=== PATIENT | male | born 1955 | race Caucasian/White ===

== ENCOUNTER → 2019-03-20 19:06 | Outpatient (CLI) | payer MEDICARE, OTHER, SELFPAY ==
[2019-03-20 10:04] VITALS: BMI 29.7
[2019-03-20 19:20] LABS: Absolute Lymphocyte Count 1.81 X10^3/uL (0.83-4.51); Absolute Neutrophil Count 3.3 X10^3/uL (2.0-7.7); Basophil# 0.07 X10^3/uL; Basophil% 1.2 % (0-1); Eosinophil# 0.12 X10^3/uL; Hematocrit 47.3 % (40-54); Lymphocyte # 1.81 X10^3/ul (4.0); Lymphocyte % 29.9 % (19-41); Mean Corp Hgb Conc 33.8 g/dL (32-36); Mean Corpuscular Hgb 30.4 pg (27.0-32.0); Mean Corpuscular Volume 89.9 fL (80-94); Mean Platelet Vol. 9.9 fl (6.2-12.0); Monocyte# 0.79 X10^3/uL; NRBC Flagged by Analyzer 0 % (0-5); Neutrophil # 3.26 X10^3/uL (2.7-7.7); Neutrophil % 53.7 % (47-70); Platelet Count 309 K/mm3 (150-450); RBC Distribution Width CV 12.4 % (11.6-14.6); RBC Distribution Width SD 40.9 fl (35.1-43.9); Red Blood Count 5.26 M/mm3 (4.6-6.2); White Blood Count 6.1 K/mm3 (4.4-11.0)
[2019-03-20 19:30] LABS: ALB/GLOB Ratio 1.1 RATIO (0.9-2.4); AST(SGOT) 14 U/L (15-37); Alanine Aminotransfer ALT/SGPT 18 U/L (16-61); Alkaline Phosphatase 73 U/L (45-117); Anion Gap 3 (5-15); BUN 13 mg/dL (7-18); BUN/Creat Ratio 12.7 RATIO (10-20); Calcium,Total 9.2 mg/dL (8.5-10.1); Chloride 107 mmol/L (98-107); Cholesterol 291 mg/dL (200); Creatinine, Serum 1.02 mg/dL (0.70-1.30); EST Glomerular Filtration Rate 78 mL/min (>60); Est Glom Filt Rate - Afr Amer 94 mL/min (>60); Globulin 3.6 g/dL (2.2-4.2); Glucose 127 mg/dL (74-106); High Density Lipoprotein 90 mg/dL; PSA,Total- Diagnostic 5.16 ng/mL (0.0-4.0); Potassium 4.2 mmol/L (3.5-5.1); Protein, Total 7.6 g/dL (6.4-8.2); Sodium Level 138 mmol/L (136-145); Triglycerides 113 mg/dL; Very Low Density Lipoprotein 23 mg/dL (5-40)
== END ==
LOC: OLS.AHF 19:07 → LABSPEC 03-22 08:41
PROVIDERS: Referring Provider Nurse Practitioner; Visit Provider Nurse Practitioner
DX: E78.5 Hyperlipidemia, unspecified (principal); N40.0 Benign prostatic hyperplasia without lower urinary tract symptoms; I10 Essential (primary) hypertension
CPT/HCPCS: 80053; 80061; 84153; 85025

== ENCOUNTER → 2019-09-15 | Outpatient (CLI) | payer MEDICARE, OTHER, SELFPAY ==
[2019-09-15 18:21] VITALS: BMI 29.0
== END | disposition home or self-care (01) ==
LOC: LABSPEC 09-16 09:36
PROVIDERS: Referring Provider Nurse Practitioner; Visit Provider Nurse Practitioner
DX: I10 Essential (primary) hypertension (principal); E78.5 Hyperlipidemia, unspecified; N40.0 Benign prostatic hyperplasia without lower urinary tract symptoms

== ENCOUNTER → 2019-10-28 | Outpatient (CLI) | payer MEDICARE, OTHER, SELFPAY ==
[2019-09-15 18:21] VITALS: BMI 29.0
[2019-10-28 22:14] LABS: ALB/GLOB Ratio 1.3 RATIO (0.9-2.4); AST(SGOT) 15 U/L (15-37); Alanine Aminotransfer ALT/SGPT 14 U/L (16-61); Alkaline Phosphatase 66 U/L (45-117); Anion Gap 6 (5-15); BUN 14 mg/dL (7-18); BUN/Creat Ratio 13.1 RATIO (10-20); Calcium,Total 9.1 mg/dL (8.5-10.1); Chloride 111 mmol/L (98-107); Creatinine, Serum 1.07 mg/dL (0.70-1.30); EST Glomerular Filtration Rate 73 mL/min (>60); Est Glom Filt Rate - Afr Amer 89 mL/min (>60); Glucose 89 mg/dL (74-106); Potassium 4.2 mmol/L (3.5-5.1); Sodium Level 143 mmol/L (136-145)
[2019-10-28 22:19] LABS: Absolute Lymphocyte Count 1.88 X10^3/uL (0.83-4.51); Absolute Neutrophil Count 4.5 X10^3/uL (2.0-7.7); Basophil# 0.06 X10^3/uL; Basophil% 0.8 % (0-1); Eosinophil# 0.11 X10^3/uL; Eosinophils% 1.5 % (0-5); Hematocrit 43.2 % (40-54); Lymphocyte # 1.88 X10^3/ul (4.0); Lymphocyte % 25.4 % (19-41); Mean Corp Hgb Conc 34.7 g/dL (32-36); Mean Corpuscular Hgb 31.5 pg (27.0-32.0); Mean Corpuscular Volume 90.8 fL (80-94); Mean Platelet Vol. 10.2 fl (6.2-12.0); Monocyte# 0.86 X10^3/uL; Monocyte% 11.6 % (0-10); NRBC Flagged by Analyzer 0 % (0-5); Neutrophil # 4.49 X10^3/uL (2.7-7.7); Neutrophil % 60.6 % (47-70); Platelet Count 304 K/mm3 (150-450); RBC Distribution Width CV 12.6 % (11.6-14.6); RBC Distribution Width SD 41.7 fl (35.1-43.9); Red Blood Count 4.76 M/mm3 (4.6-6.2); White Blood Count 7.4 K/mm3 (4.4-11.0)
== END | disposition home or self-care (01) ==
PROVIDERS: PCP Nurse Practitioner; Referring Provider Nurse Practitioner; Visit Provider Nurse Practitioner
DX: R97.20 Elevated prostate specific antigen [PSA] (principal)
CPT/HCPCS: 80053; 85025

== ENCOUNTER → 2019-10-29 | Outpatient (CLI) | payer MEDICARE, OTHER, SELFPAY ==
[2019-09-15 18:21] VITALS: BMI 29.0
[2019-10-29 11:11] VITALS: BMI 29.0
== END | disposition home or self-care (01) ==
LOC: MTDU 11:13
PROVIDERS: PCP Nurse Practitioner; Referring Provider Urology; Visit Provider Urology
DX: Z11.59 Encounter for screening for other viral diseases (principal)
CPT/HCPCS: 87635; 94799; U0003

== ENCOUNTER → 2019-11-05 | Outpatient (CLI) | payer MEDICARE, OTHER, SELFPAY ==
[2019-10-29 11:11] VITALS: BMI 29.0
--- NOTE | 2019-11-05 | PROSBIL_PTH ---
PATIENT: DOMINIK DIA LOC: [facility] U#:[id number] AGE/SX: 64/M ROOM: RE11/05/[address]: Dr. Fred Adair MD : 1955 BED: DIS: 11/05/2019 SPEC #: [id number] RECD: 11/09/19 08:23 STATUS: GEOVANNA RECanelo #: [id number] JOHNNY: 11/05/19 00:[address]: Fred Adair DEPT: SURGICAL PATHOLOGY RECD BY: Arvin Franco ENTERED: 11/09/19 08:24 SP TYPE: PROST BX BIGG DR: Livia Whitten, [facility] Tissues: A - PROSTATE RIGHT B - PROSTATE RIGHT C - PROSTATE RIGHT D - PROSTATE LEFT E - PROSTATE LEFT F - PROSTATE LEFT Procedures: PROSTATE BX HEADER OPERATION: Transrectal ultrasound-guided prostate biopsy PRE-OP DIAGNOSIS: Benign prostatic hyperplasia with lower urinary tract symptoms; elevated PSA; carcinoma in situ of prostate TISSUE SUBMITTED: A - Right base, B - Right mid, C - Right apex, D - Left base, E - Left mid, F - Left apex MICROSCOPIC DIAGNOSIS A. Right prostate, base, core biopsy: Glandular atrophy and chronic inflammation. B. Right prostate, mid, core biopsy: Glandular atrophy and chronic inflammation. C. Right prostate, apex, core biopsy: Glandular atrophy and chronic inflammation. D. Left prostate, base, core biopsy: Glandular atrophy and chronic inflammation. E. Left prostate, mid, core biopsy: Glandular atrophy and chronic inflammation. F. Left prostate, apex, core biopsy: Glandular atrophy and chronic inflammation. AM:arturo 11/10/19 MICROSCOPIC DESCRIPTION Slides are reviewed. GROSS DESCRIPTION A - Received is one container designated prostate, right base. The specimen consists of two elongated fragments of light brown-white soft tissue measuring 1.5 and 2.5 cm in length and 0.1 cm in diameter. The specimen is totally submitted in one cassette. B - Received is one container designated prostate, right mid. The specimen consists of two elongated fragments of light brown-white soft tissue measuring 1 and 1.5 cm in length and 0.1 cm in diameter. The specimen is totally submitted in one cassette. C - Received is one container designated prostate, right apex. The specimen consists of two elongated fragments of light brown-white soft tissue each measuring 1.5 cm in length and 0.1 cm in diameter. The specimen is totally submitted in one cassette. D - Received is one container designated prostate, left base. The specimen consists of two elongated fragments of light brown-white soft tissue each measuring 1.5 cm in length and 0.1 cm in diameter. The specimen is totally submitted in one cassette. E - Received is one container designated prostate, left mid. The specimen consists of two elongated fragments of light brown-white soft tissue each measuring 1.6 cm in length and 0.1 cm in diameter. The specimen is totally submitted in one cassette. F - Received is one container designated prostate, left apex. The specimen consists of two elongated fragments of light brown-white soft tissue measuring 1.2 and 1.7 cm in length and 0.1 cm in diameter. The specimen is totally submitted in one cassette. / SJ:rg 11/09/19 TC:3 CPT: G0146
== END | disposition home or self-care (01) ==
LOC: LABSPEC 15:38
PROVIDERS: PCP Nurse Practitioner; Referring Provider Urology; Visit Provider Urology
DX: D07.5 Carcinoma in situ of prostate (principal); N40.1 Benign prostatic hyperplasia with lower urinary tract symptoms; R97.20 Elevated prostate specific antigen [PSA]
CPT/HCPCS: 88305; G0416

== ENCOUNTER → 2021-07-24 | Outpatient (CLI) | payer MEDICARE, OTHER, SELFPAY ==
[2021-07-24 21:14] LABS: Absolute Neutrophil Count 5.2 X10^3/uL (2.0-7.7); Basophil# 0.07 X10^3/uL; Basophil% 0.8 % (0-1); Eosinophil# 0.24 X10^3/uL; Eosinophils% 2.9 % (0-5); Hematocrit 42.8 % (40-54); Hemoglobin 14.6 g/dL (13.0-16.5); Lymphocyte % 22.8 % (19-41); Mean Corp Hgb Conc 34.1 g/dL (32-36); Mean Corpuscular Hgb 31.3 pg (27.0-32.0); Mean Corpuscular Volume 91.8 fL (80-94); Mean Platelet Vol. 10.1 fl (6.2-12.0); Monocyte# 0.95 X10^3/uL; Monocyte% 11.4 % (0-10); NRBC Flagged by Analyzer 0 % (0-5); Neutrophil # 5.15 X10^3/uL (2.7-7.7); Neutrophil % 61.7 % (47-70); Platelet Count 340 K/mm3 (150-450); RBC Distribution Width CV 12.5 % (11.6-14.6); Red Blood Count 4.66 M/mm3 (4.6-6.2); White Blood Count 8.3 K/mm3 (4.4-11.0)
[2021-07-24 21:31] LABS: AST(SGOT) 21 U/L (15-37); Alanine Aminotransfer ALT/SGPT 15 U/L (16-61); Albumin, Serum 3.7 g/dL (3.2-5.0); Alkaline Phosphatase 79 U/L (45-117); Anion Gap 6 (5-15); BUN 12 mg/dL (7-18); BUN/Creat Ratio 12.8 RATIO (10-20); Calcium,Total 9.2 mg/dL (8.5-10.1); Chloride 107 mmol/L (98-107); Cholesterol 223 mg/dL (200); Creatinine, Serum 0.94 mg/dL (0.70-1.30); EST Glomerular Filtration Rate 85 mL/min (>60); Est Glom Filt Rate - Afr Amer 103 mL/min (>60); Globulin 3.7 g/dL (2.2-4.2); Glucose 102 mg/dL (74-106); High Density Lipoprotein 85 mg/dL; Potassium 3.9 mmol/L (3.5-5.1); Protein, Total 7.4 g/dL (6.4-8.2); Sodium Level 140 mmol/L (136-145); Triglycerides 84 mg/dL; Very Low Density Lipoprotein 17 mg/dL (5-40)
== END | disposition home or self-care (01) ==
PROVIDERS: PCP Nurse Practitioner; Visit Provider Nurse Practitioner
DX: I10 Essential (primary) hypertension (principal); N40.0 Benign prostatic hyperplasia without lower urinary tract symptoms; R97.20 Elevated prostate specific antigen [PSA]
CPT/HCPCS: 80053; 80061; 84153; 85025

== ENCOUNTER → 2021-08-29 | Outpatient (CLI) | payer MEDICARE, OTHER, SELFPAY | END | disposition home or self-care (01) | PROVIDERS: PCP Nurse Practitioner; Visit Provider Nurse Practitioner | DX: N40.1 Benign prostatic hyperplasia with lower urinary tract symptoms (principal) | CPT/HCPCS: 84153 ==

== ENCOUNTER → 2021-09-14 | Outpatient (CLI) | payer MEDICARE, OTHER, SELFPAY ==
--- NOTE | 2021-09-14 11:00 | RAD_ITS ---
STUDY: X-RAY - ORBITS REASON FOR EXAM: Male, 66 years old. HX METAL TO EYE PRE MRI -- JUST ARRIVED TECHNIQUE: BANKS view of the orbits were obtained. COMPARISON: None. FINDINGS: Normal bilateral orbits without a metallic orbital foreign body. Normal visualized facial bones. Normal paranasal sinuses. The soft tissue structures are unremarkable. RAD/Orbits for Foreign Body IMPRESSION: No demonstrated metallic orbital foreign body. The patient is cleared for an MRI examination. Electronically Signed: Franki Davey MD at 11:27 EDT ,
--- NOTE | 2021-09-14 11:15 | MRI_ITS ---
MR Prostate WO/W Contrast 09/14/2021 11:33 AM COMPARISON: None CLINICAL HISTORY: 66-year-old man with elevated PSA. TECHNIQUE: Standard prostate MR protocol was used before and after administration of 15 cc IV Dotarem. FINDINGS: Prostate volume: 34 cc PSA density: PSA level not provided. Length of membranous urethra: 13 mm Post-biopsy hemorrhage: None Multiparametric MR evaluation: Heterogeneous appearance of the central gland is consistent with benign prostatic hyperplasia. Diffuse T2 hypointensity of most of the peripheral zone likely indicating prostatitis. Capsular margin and neurovascular bundle: Normal Seminal vesicles: Normal Lymph nodes: No lymphadenopathy in the field of view. Bones: No suspicious lesions in the field of view. MRI/Pelvis W/WO Contrast IMPRESSION: - PI-RADS 2: Benign prostatic hyperplasia - Findings suspicious for prostatitis - No lymphadenopathy. - No suspicious bone lesions. Electronically Signed: Neel Reid MD at 23:03 EDT ,
[2021-09-14 11:36] LABS: CREATININE FINGERSTICK < 0.9 mg/dL (0.70-1.30); EGFR FINGERSTICK > 60.0000 mL/min (>60)
== END | disposition home or self-care (01) ==
PROVIDERS: PCP Nurse Practitioner; Referring Provider Urology; Visit Provider Urology
DX: R97.20 Elevated prostate specific antigen [PSA] (principal)
CPT/HCPCS: 70030; 72197; A9575

== ENCOUNTER → 2021-11-27 | Outpatient (CLI) | payer MEDICARE, OTHER, SELFPAY | END | disposition home or self-care (01) | PROVIDERS: PCP Nurse Practitioner; Visit Provider Nurse Practitioner | DX: N40.1 Benign prostatic hyperplasia with lower urinary tract symptoms (principal) | CPT/HCPCS: 84153 ==

== ENCOUNTER 2022-09-04 21:04 | Outpatient (CLI) | payer MEDICARE, OTHER, SELFPAY ==
[2022-09-04 21:12] LABS: Hematocrit 43.9 % (40-54); Hemoglobin 15.3 g/dL (13.0-16.5); Mean Corp Hgb Conc 34.9 g/dL (32-36); Mean Corpuscular Hgb 31.4 pg (27.0-32.0); Platelet Count 332 K/mm3 (150-450); RBC Distribution Width CV 13.2 % (11.6-14.6); RBC Distribution Width SD 43.4 fl (35.1-43.9); Red Blood Count 4.88 M/mm3 (4.6-6.2); White Blood Count 7.1 K/mm3 (4.4-11.0)
[2022-09-04 21:32] LABS: ALB/GLOB Ratio 0.9 RATIO (0.9-2.4); AST(SGOT) 17 U/L (15-37); Alanine Aminotransfer ALT/SGPT 14 U/L (16-61); Albumin, Serum 3.6 g/dL (3.2-5.0); Alkaline Phosphatase 86 U/L (45-117); Anion Gap 9 (5-15); BUN 14 mg/dL (7-18); BUN/Creat Ratio 12.2 RATIO (10-20); Calcium,Total 9.1 mg/dL (8.5-10.1); Chloride 107 mmol/L (98-107); Cholesterol 237 mg/dL (200); Creatinine, Serum 1.15 mg/dL (0.70-1.30); EST Glomerular Filtration Rate 67 mL/min (>60); Est Glom Filt Rate - Afr Amer 81 mL/min (>60); Globulin 3.8 g/dL (2.2-4.2); Glucose 96 mg/dL (74-106); High Density Lipoprotein 88 mg/dL; Potassium 4.1 mmol/L (3.5-5.1); Protein, Total 7.4 g/dL (6.4-8.2); Sodium Level 141 mmol/L (136-145); Triglycerides 172 mg/dL; Very Low Density Lipoprotein 34 mg/dL (5-40)
== END 2022-09-04 23:59 | disposition home or self-care (01) ==
PROVIDERS: PCP Nurse Practitioner; Visit Provider Nurse Practitioner
DX: Z12.5 Encounter for screening for malignant neoplasm of prostate (principal); I10 Essential (primary) hypertension; R97.20 Elevated prostate specific antigen [PSA]; E78.5 Hyperlipidemia, unspecified; N40.1 Benign prostatic hyperplasia with lower urinary tract symptoms; L02.429 Furuncle of limb, unspecified
CPT/HCPCS: 80053; 80061; 84153; 85027; G0103

== ENCOUNTER → 2022-09-27 | Outpatient (CLI) | payer MEDICARE, OTHER, SELFPAY ==
--- NOTE | 2022-09-27 10:20 | PROSBIL_PTH ---
PATIENT: DOMINIK DIA [facility]: [facility] U#:[id number] AGE/SX: 67/M ROOM: RE09/27/[address]: Dr. Fred Adair MD : 1955 BED: DIS: 09/27/2022 SPEC #: [id number] RECD: 09/30/22 09:30 STATUS: GEOVANNA JO #: [id number] JOHNNY: 09/27/22 10:[address]: Fred Adair DEPT: SURGICAL PATHOLOGY RECD BY: Nancy Ross ENTERED: 09/30/22 09:31 SP TYPE: PROST BX BIGG DR: Livia Whitten, [facility] Tissues: A - PROSTATE RIGHT B - PROSTATE RIGHT C - PROSTATE RIGHT D - PROSTATE LEFT E - PROSTATE LEFT F - PROSTATE LEFT Procedures: PROSTATE BX HEADER OPERATION: Prostate biopsy PRE-OP DIAGNOSIS: Elevated PSA TISSUE SUBMITTED: A - Right base, B - Right mid, C - Right apex, D - Left base, E - Left mid, F - Left apex MICROSCOPIC DIAGNOSIS A. Right prostate, base, core biopsy: Prostatic tissue, negative for malignancy. Focal chronic inflammation. B. Right prostate, mid, core biopsy: Prostatic tissue, negative for malignancy. Focal chronic inflammation. C. Right prostate, apex, core biopsy: Prostatic tissue, negative for malignancy. Focal chronic inflammation. D. Left prostate, base, core biopsy: Prostatic tissue, negative for malignancy. Focal chronic inflammation. E. Left prostate, mid, core biopsy: Prostatic tissue, negative for malignancy. Focal chronic inflammation. F. Left prostate, apex, core biopsy: Prostatic tissue, negative for malignancy. Focal chronic inflammation. SJ:arturo 10/01/2022 MICROSCOPIC DESCRIPTION Slides are reviewed. GROSS DESCRIPTION A - Received is one container designated prostate, right base. The specimen consists of two elongated fragments of light brown-white soft tissue measuring 1.0 and 1.5 cm in length and 0.1 cm in diameter. The specimen is totally submitted in one cassette. B - Received is one container designated prostate, right mid. The specimen consists of two elongated fragments of light brown-white soft tissue measuring 1.5 and 1.9 cm in length and 0.1 cm in diameter. The specimen is totally submitted in one cassette. C - Received is one container designated prostate, right apex. The specimen consists of two elongated fragments of light brown-white soft tissue each measuring 2.0 cm in length and 0.1 cm in diameter. The specimen is totally submitted in one cassette. D - Received is one container designated prostate, left base. The specimen consists of two elongated fragments of light brown-white soft tissue each measuring 1.5 cm in length and 0.1 cm in diameter. The specimen is totally submitted in one cassette. E - Received is one container designated prostate, left mid. The specimen consists of two elongated fragments of light brown-white soft tissue measuring 1.8 and 2.0 cm in length and 0.1 cm in diameter. The specimen is totally submitted in one cassette. F - Received is one container designated prostate, left apex. The specimen consists of three elongated fragments of light brown-white soft tissue measuring 1.2 to 1.7 cm in length and 0.1 cm in diameter. The specimen is totally submitted in one cassette. / SJ:rg 09/30/2022 TC:3 CPT: G0146
== END | disposition home or self-care (01) ==
PROVIDERS: PCP Nurse Practitioner; Referring Provider Urology; Visit Provider Urology
DX: R97.20 Elevated prostate specific antigen [PSA] (principal)
CPT/HCPCS: 88305; G0416

== ENCOUNTER → 2023-11-13 | Outpatient (CLI) | payer MEDICARE, OTHER, SELFPAY ==
[2023-11-13 21:31] LABS: Cholesterol 266 mg/dL (200); High Density Lipoprotein 97 mg/dL; Triglycerides 104 mg/dL; Very Low Density Lipoprotein 21 mg/dL (5-40)
[2023-11-15 11:15] LABS: CRP, High Sensitivity 3.07 mg/L (0.00-3.00)
[2023-11-17 14:08] LABS: Lipoprotein A 9.2 nmol/L (<75.0)
== END | disposition home or self-care (01) ==
LOC: LABSPEC 20:58
PROVIDERS: PCP Nurse Practitioner; Visit Provider Nurse Practitioner
DX: I25.10 Atherosclerotic heart disease of native coronary artery without angina pectoris (principal); N40.1 Benign prostatic hyperplasia with lower urinary tract symptoms
CPT/HCPCS: 80061; 83695; 84153; 86141

== ENCOUNTER → 2023-11-18 | Outpatient (CLI) | payer MEDICARE, OTHER, SELFPAY ==
[2023-11-18 15:38] LABS: Hematocrit 43.7 % (40-54); Hemoglobin 14.9 g/dL (13.0-16.5); Mean Corp Hgb Conc 34.1 g/dL (32-36); Mean Corpuscular Hgb 30.8 pg (27.0-32.0); Mean Corpuscular Volume 90.5 fL (80-94); Platelet Count 320 K/mm3 (150-450); RBC Distribution Width CV 12.9 % (11.6-14.6); RBC Distribution Width SD 42.4 fl (35.1-43.9); Red Blood Count 4.83 M/mm3 (4.6-6.2); White Blood Count 8.3 K/mm3 (4.4-11.0)
[2023-11-18 15:46] LABS: Anion Gap 5 (5-15); BUN 14 mg/dL (7-18); BUN/Creat Ratio 15.1 RATIO (10-20); Calcium,Total 9.3 mg/dL (8.5-10.1); Chloride 106 mmol/L (98-107); Creatinine, Serum 0.93 mg/dL (0.70-1.30); EST Glomerular Filtration Rate 86 mL/min (>60); Est Glom Filt Rate - Afr Amer 104 mL/min (>60); Glucose 98 mg/dL (74-106); Potassium 4.3 mmol/L (3.5-5.1); Sodium Level 138 mmol/L (136-145)
== END | disposition home or self-care (01) ==
LOC: LAB 14:22
PROVIDERS: PCP Nurse Practitioner; Referring Provider Urology; Visit Provider Urology
DX: Z01.812 Encounter for preprocedural laboratory examination (principal)
CPT/HCPCS: 36415; 80048; 85027

== ENCOUNTER → 2023-11-24 | Outpatient (CLI) | payer MEDICARE, OTHER, SELFPAY ==
--- NOTE | 2023-11-21 07:30 | PROSBIL_PTH ---
PATIENT: DOMINIK DIA LOC: [facility] U#:[id number] AGE/SX: 68/M ROOM: RE11/24/[address]: Dr. Fred Adair MD : 1955 BED: DIS: 11/24/2023 SPEC #: [id number] RECD: 11/24/23 14:52 STATUS: GEOVANNA JO #: [id number] JOHNNY: 11/21/23 07:[address]: Fred Adair DEPT: SURGICAL PATHOLOGY RECD BY: Addy Palafox ENTERED: 11/25/23 09:33 SP TYPE: PROST BX BIGG DR: Livia Whitten, [facility] Tissues: A - PROSTATE RIGHT B - PROSTATE RIGHT C - PROSTATE RIGHT D - PROSTATE LEFT E - PROSTATE LEFT F - PROSTATE LEFT Procedures: PROSTATE BX HEADER OPERATION: Ultrasound guided prostate biopsy PRE-OP DIAGNOSIS: Elevated PSA, benign prostatic hyperplasia with lower urinary tract symptoms TISSUE SUBMITTED: A - Right base, B - Right mid, C - Right apex, D - Left base, E - Left mid, F - Left apex MICROSCOPIC DIAGNOSIS A. Right prostate, base, core biopsy: Prostatic tissue, negative for malignancy. Focal mild chronic inflammation. B. Right prostate, mid, core biopsy: Prostatic tissue, negative for malignancy. C. Right prostate, apex, core biopsy: Prostatic tissue, negative for malignancy. D. Left prostate, base, core biopsy: Prostatic tissue, negative for malignancy. E. Left prostate, mid, core biopsy: Prostatic tissue, negative for malignancy. F. Left prostate, apex, core biopsy: Prostatic tissue, negative for malignancy. Focal mild chronic inflammation. 11/26/2023 MICROSCOPIC DESCRIPTION Slides are reviewed. GROSS DESCRIPTION A - Received is one container designated prostate, right base. The specimen consists of two elongated fragments of light brown-white soft tissue measuring 1.7 and 2.2 cm in length and 0.1 cm in diameter. The specimen is totally submitted in one cassette. B - Received is one container designated prostate, right mid. The specimen consists of two elongated fragments of light brown-white soft tissue measuring 1.5 and 1.7 cm in length and 0.1 cm in diameter. The specimen is totally submitted in one cassette. C - Received is one container designated prostate, right apex. The specimen consists of two elongated fragments of light brown-white soft tissue measuring 0.5 and 1.7 cm in length and 0.1 cm in diameter. The specimen is totally submitted in one cassette. D - Received is one container designated prostate, left base. The specimen consists of two elongated fragments of light brown-white soft tissue measuring 1.8 and 2.0 cm in length and 0.1 cm in diameter. The specimen is totally submitted in one cassette. E - Received is one container designated prostate, left mid. The specimen consists of two elongated fragments of light brown-white soft tissue each measuring 2.0 cm in length and 0.1 cm in diameter. The specimen is totally submitted in one cassette. F - Received is one container designated prostate, left apex. The specimen consists of two elongated fragments of light brown-white soft tissue each measuring 1.8 cm in length and 0.1 cm in diameter. The specimen is totally submitted in one cassette. / SJ.mr 11/25/2023 TC:3 CPT: G0146
== END | disposition home or self-care (01) ==
LOC: LABSPEC 15:25
PROVIDERS: PCP Nurse Practitioner; Referring Provider Urology; Visit Provider Urology
DX: N40.1 Benign prostatic hyperplasia with lower urinary tract symptoms (principal); R97.20 Elevated prostate specific antigen [PSA]
CPT/HCPCS: 88305; G0416

== ENCOUNTER → 2024-12-03 | Outpatient (CLI) | payer MEDICARE, OTHER, SELFPAY ==
--- OUTSIDE RECORDS SUMMARY | 2024-12-04 01:15 | XMS RPT_ITS | CCD ---
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 PULLERLan Primary Care Provide r LAN BUITRAGO Primary Care Unavailable MEG BONILLA Referring Unavailable VALERIO GAMBLE Attending Unavailable Lan Buitrago Attending Unavailable Lan Buitrago Primary Care Unavailable Lan Buitrago Primary Care Unavailable Fred Adair Referring Unavailable Fred Adair Attending Unavailable Lan Buitrago Primary Care Unavailable Fred Adair Attending Unavailable Fred Adiar Referring Unavailable Unavailable Primary Care Provider Unavailjacobo e Allergies Allergy Classification Reported Allergen(s) Allergy Type Date of Onset Reaction(s) Facility (4 sources) atorvastatin Drug Allergy 03-17-2018 muscle aches [facility] (1 source) atorvastatin Drug Allergy 03-17-2018 [facility] Repository Medications Current Medications Medication Drug Class(es) Dates Sig (Normalized) Sig (Original) aspirin 81 mg delayed release oral tablet (5 sources) Platelet Aggregation Inhibitor, Nonsteroidal Anti-inflammatory Drug Start: 03-17-2018 Aspirin (Adult Low Dose Aspirin) 81 mg tablet,delayed release (DR/EC) Active 81 MG PO DAILY March 17, 2018 1:00am tadalafil 5 mg oral tablet (4 sources) Phosphodiesterase 5 Inhibitor Start: 07-24-2021 take 1 tablet by mouth once daily Tadalafil (Cialis) 5 mg tablet Active 5 MG PO DAILY July 24, 2021 12:00am tadalafil 5 mg mally (CPD) (1 source) tadalafil 5 mg mally (CPD) Take 5 mg by mouth as directed. Allow 1 mally to slowly dissolve under tongue or between cheek and gum once daily Active Completed/Discontinued Medications Medication Drug Class(es) Dates Sig (Normalized) Sig (Original) amLODIPine 5 mg oral tablet (20 sources) Dihydropyridine Calcium Channel Bettina Start: 03-17-2018 End: 08-02-2019 take 7.5 mg by mouth once daily Amlodipine Discontinued 7.5 MG PO DAILY July 16, 2019 8:04pm August 02, 2019 3:16pm Start: 03-17-2018 End: 03-17-2018 take 5 mg by mouth once daily Amlodipine Discontinued 5 MG PO DAILY March 17, 2018 1:00am March 17, 2018 5:39pm Start: 03-17-2018 End: 03-17-2018 take 2.5 mg by mouth once daily Amlodipine Discontinued 2.5 MG PO DAILY March 17, 2018 1:00am March 17, 2018 5:38pm amoxicillin 875 mg / clavulanate 125 mg oral tablet (4 sources) Penicillin-class Antibacterial Start: 08-29-2021 End: 11-27-2021 take 1 tablet by mouth twice daily Amoxicillin-Pot Clavulanate Discontinued 1 TABLET PO TWICE A DAY August 29, 2021 12:00am November 27, 2021 3:09pm finasteride 5 mg oral tablet (12 sources) 5-alpha Reductase Inhibitor Start: 03-17-2018 End: 07-24-2021 take 1 tablet by mouth once daily Finasteride (Proscar) 5 mg tablet Discontinued 5 MG PO DAILY March 20, 2019 11:17am July 24, 2021 4:22pm Garlic (4 sources) Non-Standardized Food Allergenic Extract Start: 03-20-2019 End: 07-24-2021 take 1000 mg by mouth after mealtime Garlic Discontinued 1000 MG PO after meals March 20, 2019 1:00am July 24, 2021 4:22pm predniSONE 20 mg oral tablet (4 sources) Start: 08-29-2021 End: 09-03-2021 take 40 mg by mouth once daily Prednisone Discontinued 40 MG PO DAILY 12 05August 29, 2021 12:00am September 03, 2021 12:03am rosuvastatin calcium 5 mg oral tablet (8 sources) HMG-CoA Reductase Inhibitor Start: 03-17-2018 End: 03-20-2019 take 5 mg by mouth once daily Rosuvastatin Discontinued 5 MG PO DAILY March 17, 2018 5:45pm March 20, 2019 11:13am sulfamethoxazole 800 mg / trimethoprim 160 mg oral tablet (4 sources) Dihydrofolate Reductase Inhibitor Antibacterial, Sulfonamide Antimicrobial Start: 07-16-2019 End: 07-26-2019 take 1 tablet by mouth twice daily Sulfamethoxazole-Tr imethoprim Discontinued 1 TABLET PO TWICE A DAY 20 12July 16, 2019 12:00am July 26, 2019 12:02am Problems Active Problems Problem Classification Problem Date Documented Date Episodic/Chronic Acute cerebrovascular disease (1 source) Cerebral hemorrhage; Translations: [Nontraumatic intracerebral hemorrhage, unspecified] Onset: 10-23-2015 10-24-2015 Chronic Cancer of prostate (1 source) Carcinoma in situ of prostate; Translations: [Carcinoma in situ of prostate] Onset: 12-10-2010 12-10-2010 Chronic Coronary atherosclerosis and other heart disease (1 source) Atherosclerotic heart disease of [place] coronary artery without angina pectoris; Translations: [Atherosclerotic heart disease of [place] coronary artery without angina pectoris] Onset: 12-04-2023 Chronic Disorders of lipid metabolism (5 sources) Hyperlipidemia; Translations: [Hyperlipidemia, unspecified] Onset: 05-07-2004 03-20-2019 Chronic Esophageal disorders (1 source) Gastroesophageal reflux disease; Translations: [Gastro-esophageal reflux disease without esophagitis] Onset: 03-09-2003 09-11-2023 Chronic Essential hypertension (6 sources) Hypertensive disorder; Translations: [Essential (primary) hypertension] Onset: 10-23-2015 03-20-2019 Chronic Hyperplasia of prostate (10 sources) Benign prostatic hyperplasia; Translations: [Benign prostatic hyperplasia without lower urinary tract symptoms] Onset: 12-19-2008 10-29-2019 Chronic Late effects of cerebrovascular disease (1 source) Asthenia; 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] Onset: 11-17-2015 11-17-2015 Chronic Nonspecific chest pain (1 source) Other chest pain; Translations: [Chest pressure] Onset: 11-02-2023 Episodic Other connective tissue disease (4 sources) Swelling of right foot; Translations: [Other specified soft tissue disorders] 08-29-2021 Episodic Other connective tissue disease (4 sources) Swelling of lower limb; Translations: [Other specified soft tissue disorders] 07-21-2019 Episodic Other lower respiratory disease (1 source) Shortness of breath; Translations: [Shortness of breath] Onset: 11-02-2023 Episodic Other non-traumatic joint disorders (4 sources) Swelling of knee joint; Translations: [Effusion, left knee] 07-19-2019 Episodic Other screening for suspected conditions (not mental disorders or infectious disease) (5 sources) Raised prostate specific antigen; Translations: [Elevated prostate specific antigen [PSA]] Onset: 12-27-2008 11-27-2021 Episodic Skin and subcutaneous tissue infections (12 sources) Furuncle of knee; Translations: [Furuncle of limb, unspecified] 07-16-2019 Episodic Unclassified (1 source) Incoordination; Translations: [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] Onset: 11-17-2015 11-17-2015 Past or Other Problems Problem Classification Problem Date Documented Date Episodic/Chronic Acute cerebrovascular disease (2 sources) Acute cerebrovascular disease 10-01-2021 Genitourinary symptoms and ill-defined conditions (1 source) Blood in urine; Translations: [Hematuria, unspecified] Onset: 12-10-2010 12-10-2010 Episodic Other and unspecified benign neoplasm (1 source) History of polyp of colon; Translations: [Personal history of colonic polyps] Onset: 05-07-2004 09-11-2023 Episodic Other male genital disorders (1 source) Dysplasia of prostate; Translations: [Unspecified dysplasia of prostate] Onset: 12-27-2008 12-27-2008 Episodic Other nervous system disorders (1 source) Skin sensation disturbance; Translations: [Unspecified disturbances of skin sensation] Onset: 11-17-2015 11-17-2015 Episodic Superficial injury; contusion (10 sources) Contusion of chest; Translations: [Abrasion, right knee, initial encounter] Onset: 02-20-2015 02-20-2015 Episodic Unclassified (2 sources) poylp 10-01-2021 Results Test Name Value Interpretation Reference Range Facility PROSTATE BXon 11-21-2023 PROSTATE BX - -------- Patient Age/Sex Location Account Attending Physician -------- DOMINIK DIA 68/M [facility] [id number] Dr. Fred Adair MD -------- Specimen: [id number] Received: 11/24/23 Status: GEOVANNA Schroeder Num: [id number] Spec Type: PROST BX Subm Dr: Dr. Fred Adair MD HEADER OPERATION: Ultrasound guided prostate biopsy PRE-OP DIAGNOSIS: Elevated PSA, benign prostatic hyperplasia with lower urinary tract symptoms TISSUE SUBMITTED: A - Right base, B - Right mid, C - Right apex, D - Left base, E - Left mid, F - Left apex -------- MICROSCOPIC DIAGNOSIS A. Right prostate, base, core biopsy: Prostatic tissue, negative for malignancy. Focal mild chronic inflammation. B. Right prostate, mid, core biopsy: Prostatic tissue, negative for malignancy. C. Right prostate, apex, core biopsy: Prostatic tissue, negative for malignancy. D. Left prostate, base, core biopsy: Prostatic tissue, negative for malignancy. E. Left prostate, mid, core biopsy: Prostatic tissue, negative for malignancy. F. Left prostate, apex, core biopsy: Prostatic tissue, negative for malignancy. Focal mild chronic inflammation. 11/26/2023 MICROSCOPIC DESCRIPTION Slides are reviewed. GROSS DESCRIPTION A - Received is one container designated prostate, right base. The specimen consists of two elongated fragments of light brown-white soft tissue measuring 1.7 and 2.2 cm in length and 0.1 cm in diameter. The specimen is totally submitted in one cassette. B - Received is one container designated prostate, right mid. The specimen consists of two elongated fragments of light brown-white soft tissue measuring 1.5 and 1.7 cm in length and 0.1 cm in diameter. The specimen is totally submitted in one cassette. C - Received is one container designated prostate, right apex. The specimen consists of two elongated fragments of light brown-white soft tissue measuring 0.5 and 1.7 cm in length and 0.1 cm in diameter. The specimen is totally submitted in one cassette. D - Received is one container designated prostate, left base. The specimen consists of two elongated fragments of light brown-white soft tissue measuring 1.8 and 2.0 cm in length -------- Patient Age/Sex Location Account Attending Physician -------- [facility] 68[id number] Dr. Fred Adair MD -------- and 0.1 cm in diameter. The specimen is totally submitted in one cassette. E - Received is one container designated prostate, left mid. The specimen consists of two elongated fragments of light brown-white soft tissue each measuring 2.0 cm in length and 0.1 cm in diameter. The specimen is totally submitted in one cassette. F - Received is one container designated prostate, left apex. The specimen consists of two elongated fragments of light brown-white soft tissue each measuring 1.8 cm in length and 0.1 cm in diameter. The specimen is totally submitted in one cassette. / SJ.mr 11/25/2023 TC:3 CPT: G0146 -------- Patient Age/Sex Location Account Attending Physician -------- [facility] [id number] Dr. Fred Adair MD -------- Signed (signature on file) Dr. Jeison Long MD 11/26/23 1253 -------- Normal [facility] Comment on above: Performed By: #### P PROSB #### [facility] [address] [place], [address] Basic Metabolic Profile (BMP )on 11-18-2023 BUN/CRE 15.1 RATIO Normal 10-20 [facility] Comment on above: Order Comment: CBC Performed By: #### L 100.0500, L500.2500 #### [facility] [address] [place], [address] CA,Total 9.3 mg/dL Normal 8.5-10.1 [facility] Comment on above: Order Comment: CBC Performed By: #### L 100.0500, L500.2500 #### [facility] [address] [place], [address] Chloride [Moles/Vol] 106 mmol/L Normal 98-107 [facility] Comment on above: Order Comment: CBC Performed By: #### L 100.0500, L500.2500 #### [facility] [address] [place], [address] CO2 [Moles/Vol] 27.0 mmol/L Normal 21.0-32.0 [facility] Comment on above: Order Comment: CBC Performed By: #### L 100.0500, L500.2500 #### [facility] [address] [place], [address] Creatinine [Mass/Vol] 0.93 mg/dL Normal 0.70-1.30 [facility] Comment on above: Order Comment: CBC Result Comment: The validity of the calculated GFR GFRAA in patients over 70 years has not been determined. Clinical correlation is essential. Performed By: #### L 100.0500, L500.2500 #### [facility] [address] [place], [address] EST GFR - AA 104 mL/min Normal >60 [facility] Comment on above: Order Comment: CBC Result Comment: Afri can Ethiopian GFR Calc Performed By: #### L 100.0500, L500.2500 #### [facility] [address] [place], [address] GAP 5 Normal 5-15 [facility] Comment on above: Order Comment: CBC Performed By: #### L 100.0500, L500.2500 #### [facility] [address] [place], [address] GFR/1.73 sq M.predicted among non-blacks MDRD (S/P/Bld) [Vol rate/Area] 86 mL/min/{1.73_m2} Normal >60 [facility] Comment on above: Order Comment: CBC Result Comment: Non- GFR Calc Performed By: #### L 100.0500, L500.2500 #### [facility] [address] [place], [address] Glucose [Mass/Vol] 98 mg/dL Normal 74-106 [facility] Comment on above: Order Comment: CBC Performed By: #### L 100.0500, L500.2500 #### [facility] [address] [place], [address] Potassium [Moles/Vol] 4.3 mmol/L Normal 3.5-5.1 [facility] Comment on above: Order Comment: CBC Performed By: #### L 100.0500, L500.2500 #### [facility] [address] [place], [address] Sodium [Moles/Vol] 138 mmol/L Normal 136-145 [facility] Comment on above: Order Comment: CBC Performed By: #### L 100.0500, L500.2500 #### [facility] [address] [place], [address] Urea nitrogen [Mass/Vol] 14 mg/dL Normal 7-18 [facility] Comment on above: Order Comment: CBC Performed By: #### L 100.0500, L500.2500 #### [facility] [address] [place], [address] CBC-Complete Blood Cnt No Di ffon 11-18-2023 Erythrocyte distribution width (RBC) [Ratio] 12.9 % Normal 11.6-14.6 [facility] Comment on above: Performed By: #### L 100.0500, L500.2500 #### [facility] [address] [place], [address] Hematocrit (Bld) [Volume fraction] 43.7 % Normal 40-54 [facility] Comment on above: Performed By: #### L 100.0500, L500.2500 #### [facility] [address] [place], [address] Hemoglobin (Bld) [Mass/Vol] 14.9 g/dL Normal 13.0-16.5 [facility] Comment on above: Performed By: #### L 100.0500, L500.2500 #### [facility] [address] [place], [address] MCH (RBC) [Entitic mass] 30.8 pg Normal 27.0-32.0 [facility] Comment on above: Performed By: #### L 100.0500, L500.2500 #### [facility] [address] [place], [address] MCHC (RBC) [Mass/Vol] 34.1 g/dL Normal 32-36 [facility] Comment on above: Performed By: #### L 100.0500, L500.2500 #### [facility] [address] [place], [address] MCV (RBC) [Entitic vol] 90.5 fL Normal 80-94 [facility] Comment on above: Performed By: #### L 100.0500, L500.2500 #### [facility] [address] [place], [address] Platelet mean volume (Bld) [Entitic vol] 10.0 fL Normal 6.2-12.0 [facility] Comment on above: Performed By: #### L 100.0500, L500.2500 #### [facility] [address] [place], [address] Platelets (Bld) [#/Vol] 320 10*3/uL Normal 150-450 [facility] Comment on above: Performed By: #### L 100.0500, L500.2500 #### [facility] [address] [place], [address] RBC (Bld) [#/Vol] 4.83 10*6/uL Normal 4.6-6.2 [facility] Comment on above: Performed By: #### L 100.0500, L500.2500 #### [facility] [address] [place], [address] RDW SD 42.4 fl Normal 35.1-43.9 [facility] Comment on above: Performed By: #### L 100.0500, L500.2500 #### [facility] [address] [place], [address] WBC (Bld) [#/Vol] 8.3 10*3/uL Normal 4.4-11.0 [facility] Comment on above: Performed By: #### L 100.0500, L500.2500 #### [facility] [address] [place], [place], [id number] Lipoprotein Aon 11-17-2023 Lipoprotein a [Moles/Vol] 9.2 nmol/L Normal <75.0 [facility] Comment on above: Result Comment: Note : Values greater than or equal to 75.0 nmol/L may indicate an independent risk factor for CHD, but must be evaluated with caution when applied to non- populations due to the influence of genetic factors on Lp(a) across ethnicities. Performed at: [facility] [employer] [id number] Placement Manager: Kiet Garcia PhD, Phone: [phone] Performed By: #### L 501.9940, L3400.4600, L500.4109, L3950.5306 #### [facility] [address] [place], [place], [id number] CRP, High Sensitivity [id number] on 11-15-2023 CRP, HIGH SENS 3.07 mg/L High 0.00-3.00 [facility] Comment on above: Result Comment: Rela tive Risk for Future Cardiovascular Event Low <1.00 Average 1.00 - 3.00 High >3.00 Performed at: [facility] [employer] [id number] Placement Manager: Kiet Garcia PhD, Phone: [phone] Performed By: #### L 501.9940, L3400.4600, L500.4100, L3100.7870 #### [facility] [address] [place], [place], [id number] Lipid Profileon 11-13-2023 Cholesterol [Mass/Vol] 266 mg/dL High 200 [facility] Comment on above: Result Comment: <200 mg/dL Desirable 200-240 mg/dL Borderline >240 mg/dL High Risk Performed By: #### L 501.9940, L3400.4600, L500.4100, L3100.7870 #### [facility] [address] [place], [address] Cholesterol in HDL [Mass/Vol] 97 mg/dL Normal [facility] Comment on above: Result Comment: The drugs N-Acetylcysteine and Metamizole may falsely depress this assay. Reference Range HDL <40 mg/dL Low HDL Cholesterol HDL >or= 60 mg/dL High HDL Cholesterol Performed By: #### L 501.9940, L3400.4600, L500.4100, L3100.7870 #### [facility] [address] [place], [address] Cholesterol in LDL [Mass/Vol] 148 mg/dL High 0-130 [facility] Comment on above: Performed By: #### L 501.9940, L3400.4600, L500.4100, L3100.7870 #### [facility] [address] [place], [address] Cholesterol in VLDL [Mass/Vol] 21 mg/dL Normal 5-40 [facility] Comment on above: Performed By: #### L 501.9940, L3400.4600, L500.4100, L3100.7870 #### [facility] [address] [place], [address] Triglyceride [Mass/Vol] 104 mg/dL Normal [facility] Comment on above: Result Comment: The drugs N-Acetylcysteine and Metamizole may falsely depress this assay. Serum Triglycerides Reference Interval Normal <150 mg/dL Borderline high 150 - 199 mg/dL High 200 - 499 mg/dL Very High > or = 500 mg/dL Performed By: #### L 501.9940, L3400.4600, L500.4100, L3100.7870 #### [facility] [address] [place], [address] PSA,Total- Diagnosticon 11-01 PSA, DIAGNOSTIC 20.50 ng/mL High 0.0-4.0 [facility] Comment on above: Result Comment: This test was performed using the TPSA assay method for the [employer] chemistry system. Values obtained with different assay methods cannot be used interchangably. When changing PSA assays in the course of monitoring a patient, additional sequential testing should be carried out to confirm baseline values. Performed By: #### L 501.9940, L3400.4600, L500.4100, L3100.7870 #### [facility] [address] [place], [address] CNOVon 11-04-2023 CNOV Office Visit (CARDFV ) DOMINIK DIA ([id number]) 1955 M Date Time Provider Department 11/04/23 1:00 PM VALERIO GAMBLE During your visit today, we recorded the following information about you: Pulse Blood pressure Weight Height 55/minute 150/90 79.4 kg 1.727 m Valerio Gamble MD 11/04/2023 1:34 PM [facility] Nayeli Tracy Department of Cardiovascular Medicine REGIONAL CARDIOLOGY OUTPATIENT VISIT DATE November 04, 2023 OUTPATIENT VISIT TYPE NEW PRIMARY CARE PHYSICIAN: Lan Buitrago (Dianne) [address] [address] REFERRING PHYSICIAN: Meg Bonilla [address] [facility] [address] CHIEF COMPLAINT: Establish care Subjective HISTORY OF PRESENT ILLNESS: Mr. 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 He has no past medical history of Asthma, Atrial fibrillation (HCC), AVM (arteriovenous malformation), Cancer (HCC), Carotid artery stenosis, Chronic renal insufficiency, Congestive heart failure (HCC), Coronary artery disease, Deep vein thrombosis (DVT) ([facility]), Depression, Diabetes (HCC), Hypercoagulable state ([facility]), Intracranial aneurysm, Obesity, or Obstructive sleep apnea. who presents today to establish care. Patient had an episode of chest pressure. He went to the ER where ACS, PE was ruled out. He lives here and in [place] for half the time. While he is here he stays very active but in [place] he is more relaxed. The symptoms had responded to 2 baby aspirins and resolved. When he is physically active here he denies cardiac symptoms. He denies chest pain, shortness of breath, orthopnea, cough, edema, palpitations, PND, lightheadedness or syncope. PAST CARDIAC HISTORY: None PAST MEDICAL HISTORY No date: Dyslipidemia No date: Hypertension 11/17/2015: 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 No date: Smoking No past surgical history on file. SOCIAL HISTORY Social History Tobacco Use Smoking status: Former Smokeless tobacco: Never Substance Use Topics Alcohol use: Yes Alcohol/week: 21.0 standard drinks of alcohol Types: 21 Cans of beer per week Drug use: No FAMILY HISTORY Adopted: Yes ALLERGIES: ALLERGIES No Known Allergies MEDICATIONS: tadalafil 5 mg mally (CPD) Take 5 mg by mouth as directed. Allow 1 mally to slowly dissolve under tongue or between cheek and gum once daily aspirin, enteric coated (ASPIRIN, ENTERIC COATED) 81 mg EC tablet Take 81 mg by mouth once daily. REVIEW OF SYSTEMS: All systems reviewed and pertinent positives in HPI. PHYSICAL EXAMINATION: BP 150/90 Pulse (!) 55 Ht 172.7 cm (5' 8) Wt 79.4 kg (175 lb) SpO2 97% BMI 26.61 kg/m? General: Well appearing, in no acute distress. Skin: No clubbing, no cyanosis. Eyes: Extra ocular movements intact Oropharynx: Teeth in good repair. Neck: No jugular venous distention, no carotid bruits, carotids have a normal upstroke, no palpable thyromegaly. Lungs: Clear to auscultation bilaterally, no wheezing or rhonchi. Heart: Regular rhythm, PMI not displaced, S1, S2 normal, no S3, no S4, no heaves, no rub and no murmur. Abdomen: Soft, nontender, bowel sounds normal, no palpable organomegaly, no bruits. Extremities: No peripheral edema . Grade 2/4 distal pulses bilaterally. Neuro: Oriented to person, place and time, alert, cooperative, gait coordinated. CARDIOVASCULAR MEDICINE TESTING: Electrocardiogram: 11/02/2023: Sinus bradycardia Echocardiogram:2015: - The left ventricle is normal in size. Left ventricular systolic function is normal. EF = 71 ? 5% (2D biplane) Baseline left ventricular diastolic function is normal. - The right ventricle is normal in size. Right ventricular systolic function is normal. - There are no significant valvular abnormalities. - The patient has not had a prior CC echocardiographic exam for comparison. I have personally reviewed the Electrocardiogram and Echocardiogram. Impression/Recommenda tions IMPRESSION: Mr. Dia is a 68 year old male with h/o white coat HTN here to establish care. PLAN AND RECOMMENDATIONS: (Z13.6) Encounter for screening for cardiovascular disorders (primary encounter diagnosis) Plan: LIPID PANEL BASIC, LIPOPROTEIN (A), HIGH SENSITIVITY C-REACTIVE PROTEIN, APOLIPOPROTEIN B BLD, CT CALCIUM SCORING SELF PAY CONTACT INFORMATION: Valerio Gamble MD 11/04/2023 Referring Provider: MEG BONILLA [[id number]] Allergies As of Date: 11/04/2023 (No Known Allergies) Date Reviewed: 11/04/2023 Reviewed by: Reuben Naidu O[facility] - Fully Assessed Reason for Visit: CARD New Patient Consult [1228] Cmt: ED F/U Chest Pressure Primary Visit Diagnosis:Encounter for screening for cardiovascular d (more content not included)... [facility] HNO ID: [id number] Author: CRISTIAN THOMAS RT(R) Service: ? Author Type: Technologist Type: Allied Health Filed: 11/02/2023 11:51 Note Text: Radiology Service Progress Note PATIENT NAME: Dominik Dia DATE OF SERVICE: November 02, 2023 TIME: 11:51 AM PATIENT IDENTITY VERIFICATION COMPLETED USING TWO (2) IDENTIFIERS: Name and Date of confirmed by patient verbally and Name and Date of confirmed by identification band. FALL SCREENING: Has the patient had 2 falls in the last year or 1 fall with injury or currently using an Ambulatory Assistive Device (Walker, Cane, Wheelchair, Crutches, etc.)? Emergency Room Patient: Screened in ED PATIENT GENDER DATA: Male PATIENT RELEVANT IMPLANT DATA REVIEWED: Not Applicable PATIENT PRESENTS WITH AN IMPLANTABLE OR ATTACHED RESIDENT IN DIAGNOSTIC RADIOLOGY: No RADIOLOGY DEPARTMENT: General X-ray: Exam(s) Completed: Chest X-Ray PERIPHERAL IV DATA: Not applicable SIGNED BY: RT Nicol(R) November 02, 2023 11:51 AM [facility] CBC W Auto Differential pane l (Bld)on 11-02-2023 Basophils (Bld) [#/Vol] 0.06 10*3/uL Normal <0.11 [facility] Comment on above: Order Comment: Speci men Type: BLOOD SPECIMEN Ordering Facility: [facility] Address: [address] [place] [address] Performed By: #### 5 7021-8 #### [facility] CLIA [id number] [address] [place] Basophils/100 WBC (Bld) 0.8 % Normal [facility] Comment on above: Order Comment: Speci men Type: BLOOD SPECIMEN Ordering Facility: [facility] Address: [address] [place] [address] Performed By: #### 5 7021-8 #### [facility] CLIA [id number] [address] [place] [address] [place] Differential cell count method Nom (Bld) Auto [facility] Comment on above: Order Comment: Speci men Type: BLOOD SPECIMEN Ordering Facility: [facility] Address: [address] [place] [address] Performed By: #### 5 7021-8 #### [facility] CLIA [id number] [address] [place] [address] [place] Eosinophils (Bld) [#/Vol] 0.13 10*3/uL Normal <0.46 [facility] Comment on above: Order Comment: Speci men Type: BLOOD SPECIMEN Ordering Facility: [facility] Address: [address] [place] [address] Performed By: #### 5 7021-8 #### [facility] CLIA [id number] [address] [place] [address] [place] Eosinophils/100 WBC (Bld) 1.8 % [facility] Comment on above: Order Comment: Speci men Type: BLOOD SPECIMEN Ordering Facility: [facility] Address: [address] [place] [address] Performed By: #### 5 7021-8 #### [facility] CLIA [id number] [address] Erythrocyte distribution width (RBC) [Ratio] 12.7 % Normal 11.5-15.0 [facility] Comment on above: Order Comment: Speci men Type: BLOOD SPECIMEN Ordering Facility: [facility] Address: [address] [place] [address] Performed By: #### 5 7021-8 #### [facility] CLIA [id number] [address] Hematocrit (Bld) [Volume fraction] 42.2 % Normal 39.0-51.0 [facility] Comment on above: Order Comment: Speci men Type: BLOOD SPECIMEN Ordering Facility: [facility] Address: [address] [place] [address] Performed By: #### 5 7021-8 #### [facility] CLIA [id number] [address] [place] Hemoglobin (Bld) [Mass/Vol] 14.9 g/dL Normal 13.0-17.0 [facility] Comment on above: Order Comment: Speci men Type: BLOOD SPECIMEN Ordering Facility: [facility] Address: [address] [place] [address] Performed By: #### 5 7021-8 #### [facility] CLIA [id number] [address] Immature granulocytes (Bld) [#/Vol] 10*3/uL Normal <0.10 [facility] Comment on above: Order Comment: Speci men Type: BLOOD SPECIMEN Ordering Facility: [facility] Address: [address] [place] [address] Performed By: #### 5 7021-8 #### [facility] CLIA [id number] [address] Immature granulocytes/100 WBC (Bld) 0.1 % Normal [facility] Comment on above: Order Comment: Speci men Type: BLOOD SPECIMEN Ordering Facility: [facility] Address: [address] [place] [address] Performed By: #### 5 7021-8 #### [facility] CLIA [id number] [address] Lymphocytes (Bld) [#/Vol] 1.84 10*3/uL Normal 1.00-4.00 [facility] Comment on above: Order Comment: Speci men Type: BLOOD SPECIMEN Ordering Facility: [facility] Address: [address] [place] [address] Performed By: #### 5 7021-8 #### [facility] CLIA [id number] [address] Lymphocytes/100 WBC (Bld) 26.0 % Normal [facility] Comment on above: Order Comment: Speci men Type: BLOOD SPECIMEN Ordering Facility: [facility] Address: [address] [place] [address] Performed By: #### 5 7021-8 #### [facility] CLIA [id number] [address] MCH (RBC) [Entitic mass] 31.4 pg Normal 26.0-34.0 [facility] Comment on above: Order Comment: Speci men Type: BLOOD SPECIMEN Ordering Facility: [facility] Address: [address] [place] [address] Performed By: #### 5 7021-8 #### [facility] CLIA [id number] [address] MCHC (RBC) [Mass/Vol] 35.3 g/dL Normal 30.5-36.0 [facility] Comment on above: Order Comment: Speci men Type: BLOOD SPECIMEN Ordering Facility: [facility] Address: [address] [place] [address] Performed By: #### 5 7021-8 #### [facility] CLIA [id number] [address] MCV (RBC) [Entitic vol] 88.8 fL Normal 80.0-100.0 [facility] Comment on above: Order Comment: Speci men Type: BLOOD SPECIMEN Ordering Facility: [facility] Address: [address] [place] [address] Performed By: #### 5 7021-8 #### [facility] CLIA [id number] [address] [place] [address] [place] Monocytes (Bld) [#/Vol] 0.92 10*3/uL High <0.87 [facility] Comment on above: Order Comment: Speci men Type: BLOOD SPECIMEN Ordering Facility: [facility] Address: [address] [place] [address] Performed By: #### 5 7021-8 #### [facility] CLIA [id number] [address] Monocytes/100 WBC (Bld) 13.0 % Normal [facility] Comment on above: Order Comment: Speci men Type: BLOOD SPECIMEN Ordering Facility: [facility] Address: [address] [place] [address] Performed By: #### 5 7021-8 #### [facility] CLIA [id number] [address] [place] [address] [place] Neutrophils (Bld) [#/Vol] 4.13 10*3/uL Normal 1.45-7.50 [facility] Comment on above: Order Comment: Speci men Type: BLOOD SPECIMEN Ordering Facility: [facility] Address: [address] [place] [address] Performed By: #### 5 7021-8 #### [facility] CLIA [id number] [address] [place] Neutrophils/100 WBC (Bld) 58.3 % Normal [facility] Comment on above: Order Comment: Speci men Type: BLOOD SPECIMEN Ordering Facility: [facility] Address: [address] [place] [address] Performed By: #### 5 7021-8 #### [facility] CLIA [id number] [address] [place] [address] [place] Nucleated RBC (Bld) [#/Vol] 10*3/uL Normal <0.01 [facility] Comment on above: Order Comment: Speci men Type: BLOOD SPECIMEN Ordering Facility: [facility] Address: [address] [place] [address] Performed By: #### 5 7021-8 #### [facility] CLIA [id number] [address] [place] Nucleated RBC/100 WBC (Bld) [Ratio] 0.0 /100 WBC Normal [facility] Comment on above: Order Comment: Speci men Type: BLOOD SPECIMEN Ordering Facility: [facility] Address: [address] [place] [address] Performed By: #### 5 7021-8 #### [facility] CLIA [id number] [address] [place] Platelet mean volume (Bld) [Entitic vol] 9.2 fL Normal 9.0-12.7 [facility] Comment on above: Order Comment: Speci men Type: BLOOD SPECIMEN Ordering Facility: [facility] Address: [address] [place] [address] Performed By: #### 5 7021-8 #### [facility] CLIA [id number] [address] [place] [address] [place] Platelets (Bld) [#/Vol] 292 10*3/uL Normal 150-400 [facility] Comment on above: Order Comment: Speci men Type: BLOOD SPECIMEN Ordering Facility: [facility] Address: [address] [place] [address] Performed By: #### 5 7021-8 #### [facility] CLIA [id number] [address] [place] [address] [place] RBC (Bld) [#/Vol] 4.75 10*6/uL Normal 4.20-6.00 [facility] Comment on above: Order Comment: Speci men Type: BLOOD SPECIMEN Ordering Facility: [facility] Address: [address] [place] [address] Performed By: #### 5 7021-8 #### [facility] CLIA [id number] [address] [place] WBC (Bld) [#/Vol] 7.09 10*3/uL Normal 3.70-11.00 [facility] Comment on above: Order Comment: Speci men Type: BLOOD SPECIMEN Ordering Facility: [facility] Address: [address] [place] [address] Performed By: #### 5 7021-8 #### [facility] CLIA [id number] [address] [place] Comprehensive metabolic 2000 panelon 11-02-2023 Albumin [Mass/Vol] 4.1 g/dL Normal 3.9-4.9 [facility] Comment on above: Order Comment: Speci men Type: BLOOD SPECIMEN Ordering Facility: [facility] Address: [address] [place] [address] Performed By: #### 2 4323-8, [id number], #### [facility] CLIA [id number] [address] [place] ALP [Catalytic activity/Vol] 75 U/L Normal 38-113 [facility] Comment on above: Order Comment: Speci men Type: BLOOD SPECIMEN Ordering Facility: [facility] Address: [address] [place] [address] Performed By: #### 2 4323-8, [id number], #### [facility] CLIA [id number] [address] ALT [Catalytic activity/Vol] U/L Low 10-54 [facility] Comment on above: Order Comment: Speci men Type: BLOOD SPECIMEN Ordering Facility: [facility] Address: [address] [place] [address] Performed By: #### 2 4323-8, [id number], #### [facility] CLIA [id number] [address] Anion gap [Moles/Vol] 11 mmol/L Normal 8-15 [facility] Comment on above: Order Comment: Speci men Type: BLOOD SPECIMEN Ordering Facility: [facility] Address: [address] [place] [address] Performed By: #### 2 4323-8, [id number], #### [facility] CLIA [id number] [address] [place] [address] [place] AST [Catalytic activity/Vol] 16 U/L Normal 14-40 [facility] Comment on above: Order Comment: Speci men Type: BLOOD SPECIMEN Ordering Facility: [facility] Address: [address] [place] [address] Performed By: #### 2 4323-8, [id number], #### [facility] CLIA [id number] [address] [place] [address] [place] Bilirubin [Mass/Vol] 0.4 mg/dL Normal 0.2-1.[address] [facility] Comment on above: Order Comment: Speci men Type: BLOOD SPECIMEN Ordering Facility: [facility] Address: [address] [place] [address] Performed By: #### 2 4323-8, [id number], #### [facility] CLIA [id number] [address] [place] [address] [place] Calcium [Mass/Vol] 9.4 mg/dL Normal 8.5-10.2 [facility] Comment on above: Order Comment: Speci men Type: BLOOD SPECIMEN Ordering Facility: [facility] Address: [address] [place] [address] Performed By: #### 2 4323-8, [id number], #### [facility] CLIA [id number] [address] [place] [address] [place] Chloride [Moles/Vol] 104 mmol/L Normal 98-[address] [facility] Comment on above: Order Comment: Speci men Type: BLOOD SPECIMEN Ordering Facility: [facility] Address: [address] [place] [address] Performed By: #### 2 4323-8, [id number], #### [facility] CLIA [id number] [address] [place] [address] [place] CO2 [Moles/Vol] 23 mmol/L Normal 22-30 [facility] Comment on above: Order Comment: Speci men Type: BLOOD SPECIMEN Ordering Facility: [facility] Address: [address] [place] [address] Performed By: #### 2 4323-8, [id number], 67679-3 #### [facility] CLIA [id number] [address] [place] [address] [place] Creatinine [Mass/Vol] 0.86 mg/dL Normal 0.73-1.22 [facility] Comment on above: Order Comment: Ender gastelum Type: BLOOD SPECIMEN Ordering Facility: [facility] Address: [address] [facility] [facility] [place] [address] Performed By: #### 2 4323-8, [id number], #### [facility] CLIA [id number] [address] [place] [address] [place] Creatinine and Glomerular filtration rate.predicted panel (S/P/Bld) 93 mL/min/1.73m??? Normal >=60 [facility] Comment on above: Order Comment: Ender gastelum Type: BLOOD SPECIMEN Ordering Facility: [facility] Address: [address] [place] [address] Result Comment: Magalys mated Glomerular Filtration Rate (eGFR) is calculated using the 2020 CKD-EPI creatinine equation. This equation utilizes serum creatinine, sex, and age as parameters. The creatinine assay has traceable calibration to isotope dilution-mass spectrometry. Refer to KDIGO guidelines for clinical interpretation. In patients with unstable renal function, e.g. those with acute kidney injury, the eGFR may not accurately reflect actual GFR. Performed By: #### 2 4323-8, [id number], #### [facility] CLIA [id number] [address] [place] [address] [place] Glucose [Mass/Vol] 121 mg/dL High 74-99 [facility] Comment on above: Order Comment: Ender gastelum Type: BLOOD SPECIMEN Ordering Facility: [facility] Address: [address] [place] [address] Result Comment: The [place] [employer] (ADA) provides guidance for cutoff values for fasting glucose and random glucose. The ADA defines fasting as no caloric intake for at least 8 hours. Fasting plasma glucose results between 100 to 125 mg/dL indicate increased risk for diabetes (prediabetes). Fasting plasma glucose results greater than or equal to 126 mg/dL meet the criteria for diagnosis of diabetes. In the absence of unequivocal hyperglycemia, results should be confirmed by repeat testing. In a patient with classic symptoms of hyperglycemia or hyperglycemic crisis, random plasma glucose results greater than or equal to 200 mg/dL meet the criteria for diagnosis of diabetes. Reference: Standards of Medical Care in Diabetes 2016, [place] [employer]. Diabetes Care. 2016.39(Suppl 1). Performed By: #### 2 4323-8, [id number], #### [facility] CLIA [id number] [address] [place] [address] [place] Potassium [Moles/Vol] 4.5 mmol/L Normal 3.7-5.1 [facility] Comment on above: Order Comment: Ender gastelum Type: BLOOD SPECIMEN Ordering Facility: [facility] Address: [address] [place] [address] Performed By: #### 2 4323-8, [id number], #### [facility] CLIA [id number] [address] [place] [address] [place] Protein [Mass/Vol] 6.7 g/dL Normal 6.3-8.0 [facility] Comment on above: Order Comment: Viniciusi nirav Type: BLOOD SPECIMEN Ordering Facility: [facility] Address: [address] [place] [address] Performed By: #### 2 4323-8, [id number], #### [facility] CLIA [id number] [address] [place] Sodium [Moles/Vol] 138 mmol/L Normal 136-144 [facility] Comment on above: Order Comment: Speci men Type: BLOOD SPECIMEN Ordering Facility: [facility] Address: [address] [place] [address] Performed By: #### 2 4323-8, [id number], #### [facility] CLIA [id number] [address] [place] [address] [place] Urea nitrogen [Mass/Vol] 12 mg/dL Normal 9-24 [facility] Comment on above: Order Comment: Viniciusi men Type: BLOOD SPECIMEN Ordering Facility: [facility] Address: [address] [place] [address] Performed By: #### 2 4323-8, [id number], 72185-6 #### [facility] CLIA [id number] [address] [place] [address] [facility] ED NOTEon 11-02-2023 ED NOTE HNO ID: [id number] Author: KYLEIGH FOURNIER RN Service: ? Author Type: Registered Nurse Type: ED Notes Filed: 11/02/2023 14:30 Note Text: Pt dcd. Amb w from er in nad. Pwd. Sts fu made for ermelinda w cardiology [facility] ED NOTE HNO ID: [id number] Author: MARTHA TAVARES RN Service: Nursing Author Type: Registered Nurse Type: ED Notes Filed: 11/02/2023 13:24 Note Text: Pt report was received [facility] ED NOTE HNO ID: [id number] Author: KYLEIGH FOURNIER RN Service: ? Author Type: Registered Nurse Type: ED Notes Filed: 11/02/2023 14:09 Note Text: Report off to martha rn. Made her aware pt hadnt wanted tylenol after I had pulled it. Made her aware he said if any pressure or pain comes back he can take it but sts none since here now . at sts we will let you know if he will take this , call light in bed [facility] ED NOTE HNO ID: [id number] Author: KYLEIGH FOURNIER RN Service: ? Author Type: Registered Nurse Type: ED Notes Filed: 11/02/2023 11:17 Note Text: Pt sts took baby asa at 0400 today [facility] ED NOTE HNO ID: [id number] Author: KYLEIGH FOURNIER RN Service: ? Author Type: Registered Nurse Type: ED Notes Filed: 11/02/2023 11:17 Note Text: Pcxr at ready to go [facility] ED NOTE HNO ID: [id number] Author: KYLEIGH FOURNIER RN Service: ? Author Type: Registered Nurse Type: ED Notes Filed: 11/02/2023 11:05 Note Text: Md at . [facility] ED PROV NOTEon 11-02-2023 ED PROV NOTE HNO ID: [id number] Author: MEG BONILLA DO Service: Emergency Medicine Author Type: Physician Type: ED Provider Notes Filed: 11/02/2023 17:12 Note Text: ED Provider Note Patient Name: Dominik Dia : 1955 SERVICE DATE: 11/02/23 History Patient presents with: Shortness of Breath Chest Pain HPI 68 year old male PMHx ICH, HTN presents today for chest pressure and shortness of breath. Patient states that he has had intermittent chest pressure in the center of his chest that does not radiate for the last couple of weeks. Denies chest pain. States that his pressure is a 2/10. He is not sure makes it worse or better. Denies any exertional angina. States that he has been spreading mulch and installing air conditioning in his house and had no chest pain/chest pressure. Patient also endorses shortness of breath. Patient states that he will occasionally wake up at night because he feels short of breath. Notes that he was driving yesterday and felt he was taking shallow breaths. Did not have any chest pain, diaphoresis or nausea with this. States that he went home and then laid down for a few hours and felt better. Denies any anxiety at that time. Denies any cough, congestion, rhinorrhea, fever, chills, abdominal pain, nausea, vomiting, diarrhea, melena, hematochezia, hematuria, dysuria. Patient also states that he has a pulse ox at home. States he noticed that the pulse ox waveform appeared to pause and become wider. Denies any episodes of hypoxia. states that patient is currently at mental status baseline. 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 FAMILY HISTORY Adopted: Yes Social History Tobacco Use Smoking status: Former Smokeless tobacco: Never Substance and Sexual Activity Alcohol use: Yes Alcohol/week: 21.0 standard drinks of alcohol Types: 21 Cans of beer per week Drug use: No Sexual activity: Not on file ALLERGIES No Known Allergies Review of Systems Constitutional: Negative for fever. HENT: Negative for congestion. Respiratory: Positive for shortness of breath. Negative for cough. Cardiovascular: Positive for chest pain. Gastrointestinal: Negative for abdominal pain, diarrhea, nausea and vomiting. Genitourinary: Negative for dysuria. Musculoskeletal: Negative for back pain. Neurological: Negative for syncope, weakness and headaches. Physical Exam Vitals [11/02/23 1054] BP Pulse Temp Temp src Resp SpO2 Weight Height 130/76 (!) 53 36.6 ?C (97.9 ?F) Oral 18 97 % 82 kg (180 lb 12.4 oz) 1.727 m (5' 8) Physical Exam Constitutional: General: He is not in acute distress. Appearance: He is not ill-appearing, toxic-appearing or diaphoretic. HENT: Head: Normocephalic. Nose: Nose normal. Mouth/Throat: Mouth: Mucous membranes are moist. Eyes: Pupils: Pupils are equal, round, and reactive to light. Cardiovascular: Rate and Rhythm: Normal rate. Pulses: Normal pulses. Pulmonary: Effort: Pulmonary effort is normal. No respiratory distress. Breath sounds: No wheezing. Comments: CTA bilaterally, good air movement Abdominal: Palpations: Abdomen is soft. Tenderness: There is no abdominal tenderness. There is no guarding. Musculoskeletal: Right lower leg: No edema. Left lower leg: No edema. Skin: General: Skin is warm. Capillary Refill: Capillary refill takes less than 2 seconds. Neurological: Mental Status: Mental status is at baseline. Diagnostic Testing ED Labs Ordered and Reviewed COMPREHENSIVE METABOLIC PANEL - Abnormal; Notable for the following components: Result Value Ref Range ALT <5 (*) 10 - 54 U/L Glucose 121 (*) 74 - 99 mg/dL All other components within normal limits COMPLETE BLOOD COUNT AND DIFFERENTIAL - Abnormal; Notable for the following components: Abs [place] 0.92 (*) <0.87 k/uL All other components within normal limits MAGNESIUM - Normal HIGH SENSITIVITY TROPONIN T (INITIAL) - Normal HIGH SENSITIVITY TROPONIN T (SECOND) - Normal COVID AND INFLUENZA A/B AND RSV PCR, EXPEDITED - Normal Narrative: Reference Range (the expected result in uninfected individuals): Not detected Procedures ED Course / Clinical Impression ED Course as of 11/02/23 1712 Meg Bonilla's Documentation Sun Nov 02, 2023 1118 CBC + DIFF(!): WBC 7.09 RBC 4.75 Hemoglobin 14.9 Hematocrit 42.2 MCV 88.8 MCH 31.4 MCHC 35.3 RDW-CV 12.7 Platelet Count 292 MPV 9.2 Neut% 58.3 Abs Neut (ANC) 4.13 Lymph% 26.0 Abs Lymph 1.84 [place]% 13.0 Abs [place] 0.92(!) Eosin% 1.8 Abs Eosin 0.13 Baso% 0.8 Abs Baso 0.06 Immature Gran % 0.1 IMMATURE GRANS (ABS) <0.03 NRBC 0.0 Absolute nRBC <0.01 DTYPE Auto No leukocytosis. No anemia 1119 EKG: HR 53. Sinus bradycardia. LA 174. QTC 399. No ST elevation consistent with GA. Nonspecific T wave jimenez (more content not included)... Normal [facility] EKGon 11-02-2023 Electrocardiogram Ventricular Rate : 5 3 BPM Atrial Rate : 53 BPM P-R Interval : 174 ms QRS Duration : 76 ms Q-T Interval : 426 ms QTC Calculation(Bazett) : 399 ms Calculated P [place] : 69 degrees Calculated R [place] : 41 degrees Calculated T [place] : 47 degrees SINUS BRADYCARDIA OTHERWISE NORMAL ECG NO STEMI Confirmed by MEG BONILLA DO ([id number]), pictures editor BILLY MERIDA ([id number]) on 11/02/2023 12:17:55 PM NAME : DOMINIK DIA PID : [id number] : 1955 Gender : Male Race : ORD : Procedure Date : Nov 02 2023 10:48:15 Edit Date : Nov 02 2023 12:17:57 Diagnosis: SINUS BRADYCARDIA OTHERWISE NORMAL ECG NO STEMI Confirmed by MEG BONILLA DO ([id number]), pictures editor BILLY MERIDA ([id number]) on 11/02/2023 12:17:55 PM Test Reason : Location : 1 : ER 15 Overread By : MEG BONILLA DO Edited By : BILLY MERIDA Referred By : , Acquired by : Priyanka vargas [facility] HIGH SENSITIVITY TROPONIN T (INITIAL)on 11-02-2023 Troponin T.cardiac High sensitivity method [Mass/Vol] 9 ng/L Normal <12 [facility] Comment on above: Order Comment: Speci men Type: BLOOD SPECIMENOrdering Facility: [facility] Address: [address] [place] [address] Performed By: #### 2 4323-8, [id number], [id number] ####[facility] LABORATORYCLIA [id number] [place] [id number] [place] HIGH SENSITIVITY TROPONIN T (SECOND)on 11-02-2023 Troponin T.cardiac High sensitivity method [Mass/Vol] 8 ng/L Normal <12 [facility] Comment on above: Order Comment: Speci men Type: BLOOD SPECIMENOrdering Facility: [facility] Address: [address] [place] [address] Performed By: #### L [id number] ####[facility] LABORATORYCLIA [id number] [place] [address] [place] Magnesium SerPl-mCncon 11-01 Magnesium [Mass/Vol] 1.9 mg/dL Normal 1.7-2.[address] [facility] Comment on above: Order Comment: Speci men Type: BLOOD SPECIMENOrdering Facility: [facility] Address: [address] [place] [address] Performed By: #### 2 4323-8, [id number], 81617-5 ####[facility] LABORATORYCLIA [id number] [place] [id number] [place] XR CHEST 1V FRONTAL PORTon 0 11-02-2023 XR CHEST 1V FRONTAL PORT * * *Final Report* * * DATE OF EXAM: Nov 02 2023 11:18AM MDX [id number] - XR CHEST 1V FRONTAL PORT / PROCEDURE REASON: Shortness of breath * * * * Physician Interpretation * * * * EXAMINATION: CHEST RADIOGRAPH (PORTABLE SINGLE VIEW AP) Exam Date/Time: 11/02/2023 11:18 AM CLINICAL HISTORY: Shortness of breath MQ: XCPR_5 Comparison: None RESULT: 1. Lines, Tubes, and Devices: None 2. Lungs and Pleura: The lungs are clear. No infiltrates, nodules or pleural effusions are seen. 3. Cardiomediastinal silhouette: Heart size within normal limits. Pulmonary vascularity is unremarkable. 4. Other: Bony structures unremarkable. 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 Chloride [Moles/Vol] 107 mmol/L 98-107 [facility] Cholesterol [Mass/Vol] 237 mg/dL <200 [facility] Comment on above: <200 mg/dL Desirable 200-240 mg/dL Borderline >240 mg/dL High Risk Glucose [Mass/Vol] 96 mg/dL 74-106 [facility] Potassium [Moles/Vol] 4.1 mmol/L 3.5-5.1 [facility] Protein [Mass/Vol] 7.4 g/dL 6.4-8.2 [facility] Sodium [Moles/Vol] 141 mmol/L 136-145 [facility] Triglyceride [Mass/Vol] 172 mg/dL <199 [facility] Comment on above: The drugs N-Acetylcy steine and Metamizole may falsely depress this assay.Serum Triglycerides Reference Interval Normal <150 mg/dL Borderline high 150 - 199 mg/dL High 200 - 499 mg/dL Very High > or = 500 mg/dL WBC (Bld) [#/Vol] 7.1 10*3/uL 4.4-11.0 [facility] Blood erythrocytes count (nu mber/volume)Ordered By: Lan Buitrago on 09-04-2022 RBC (Bld) [#/Vol] 4.88 10*6/uL 4.6-6.2 [facility] Blood hemoglobin measurement (mass/volume)Ordered By: Lan Buitrago on 09-04-2022 Hemoglobin (Bld) [Mass/Vol] 15.3 g/dL 13.0-16.5 [facility] Blood platelet mean volumeOr dered By: Lan Buitrago on 09-04-2022 Platelet mean volume (Bld) [Entitic vol] 10.0 fL 6.2-12.0 [facility] Determination of erythrocyte mean corpuscular volume (MCV)Ordered By: Lan Buitrago on 09-04-2022 MCV (RBC) [Entitic vol] 90.0 fL 80-94 [facility] Hematocrit Auto (Bld) [Volum e fraction]Ordered By: Lan Buitrago on 09-04-2022 Hematocrit (Bld) [Volume fraction] 43.9 % 40-54 [facility] Laboratory - Chemistry and C hemistry - challengeOrdered By: Lan Buitrago on 09-04-2022 ALP [Catalytic activity/Vol] 86 U/L 45-117 [facility] ALT [Catalytic activity/Vol] 14 U/L 16-61 [facility] CO2 [Moles/Vol] 25.0 mmol/L 21.0-32.0 [facility] Globulin (S) [Mass/Vol] 3.8 g/dL 2.2-4.2 [facility] Urea nitrogen/Creatinine [Mass ratio] 12.2 mg/mg 10-20 [facility] Laboratory - Hematology and Cell countsOrdered By: Lan Buitrago on 09-04-2022 Erythrocyte distribution width (RBC) [Entitic vol] 43.4 fL 35.1-43.9 [facility] Erythrocyte distribution width (RBC) [Ratio] 13.2 % 11.6-14.6 [facility] MCH (RBC) [Entitic mass] 31.4 pg 27.0-32.0 [facility] MCHC Auto (RBC) [Mass/Vol]Or dered By: Lan Buitrago on 09-04-2022 MCHC (RBC) [Mass/Vol] 34.9 g/dL 32-36 [facility] No Panel InformationOrdered By: Lan Buitrago on 09-04-2022 Estimated GFR (MDRD) Amer 81 mL/min >60 [facility] Comment on above: GFR Calc Estimated GFR (MDRD) Non-Af Amer 67 mL/min >60 [facility] Comment on above: Non- GFR Calc Prostate Specific Antigen Screen 16.60 ng/mL 0.00-4.00 [facility] Comment on above: This test was perfor med using the TPSA assay method for the[employer] chemistry system. Values obtained with differentassay methods cannot be used interchangably.When changing PSA assays in the course of monitoring apatient, additional sequential testing should be carriedout to confirm baseline values. Platelets bldOrdered By: Manjit Buitrago on 09-04-2022 Platelets (Bld) [#/Vol] 332 10*3/uL 150-450 [facility] Serum or plasma albumin aaliyah urement (mass/volume)Ordered By: Lan Buitrago on 09-04-2022 Albumin [Mass/Vol] 3.6 g/dL 3.2-5.0 [facility] Serum or plasma albumin/glob ulin mass ratioOrdered By: Lan Buitrago on 09-04-2022 Albumin/Globulin [Mass ratio] 0.9 {ratio} 0.9-2.4 [facility] Serum or plasma calcium aaliyah urement (mass/volume)Ordered By: Lan Buitrago on 09-04-2022 Calcium [Mass/Vol] 9.1 mg/dL 8.5-10.1 [facility] Serum or plasma cholesterol in HDL measurement (mass/volume)Ordered By: Lan Buitrago on 09-04-2022 Cholesterol in HDL [Mass/Vol] 88 mg/dL >40 [facility] Comment on above: The drugs N-Acetylcy steine and Metamizole may falsely depress this assay. Reference Range HDL <40 mg/dL Low HDL Cholesterol HDL >or= 60 mg/dL High HDL Cholesterol Serum or plasma cholesterol in VLDL measurement (mass/volume)Ordered By: Lan Buitrago on 09-04-2022 Cholesterol in VLDL [Mass/Vol] 34 mg/dL 5-40 [facility] Serum or plasma creatinine m easurement (mass/volume)Ordered By: Lan Buitrago on 09-04-2022 Creatinine [Mass/Vol] 1.15 mg/dL 0.70-1.30 [facility] Comment on above: The validity of the calculated GFR & GFRAA in patients over 70 years has not been determined. Clinical correlation is essential. Serum or plasma low density lipoprotein (LDL) cholesterol measurement (mass/volume)Ordered By: Lan Buitrago on 09-04-2022 Cholesterol in LDL [Mass/Vol] 115 mg/dL 0-130 [facility] Serum or plasma urea nitroge n measurement (mass/volume)Ordered By: Lan Buitrago on 09-04-2022 Urea nitrogen [Mass/Vol] 14 mg/dL 7-18 [facility] Thin prep Papanicolaou smear with manual screeningOrdered By: Lan Buitrago on 09-04-2022 Thin prep Papanicolaou smear with manual screening 17 U/L 15-37 [facility] Thin prep Papanicolaou smear with manual screening 9 5-15 [facility] Basophil percentageon 2021 Basophil percentage < 0.9 mg/dL 0.70-1.30 [facility] Work Phone: No Panel Informationon 09-14 Bedside Estimated GFR (eGFR) > 60.0000 mL/min >60 [facility] Work Phone: No Panel Informationon 08-29 Prostate Specific Antigen Total 16.90 ng/mL 0.0-4.0 [facility] Work Phone: Comment on above: This test was perfor med using the TPSA assay method for [employer] chemistry system. Values obtained with differentassay methods cannot be used interchangably.When changing PSA assays in the course of monitoring apatient, additional sequential testing should be carriedout to confirm baseline values. Absolute lymphocyte counton 07-24-2021 Lymphocytes Auto (Unsp spec) [#/Vol] 1.90 10*3/uL 0.83-4.51 [facility] Work Phone: Basophil percentageon 2021 Basophils/100 WBC (Bld) 0.8 % 0-1 [facility] Work Phone: Bilirubin [Mass/Vol] 0.50 mg/dL 0.20-1.00 [facility] Work Phone: Comment on above: For patients on eltr ombopag therapy, use of Dimension [place] TBIL is not recommended. Chloride [Moles/Vol] 107 mmol/L 98-107 [facility] Work Phone: Cholesterol [Mass/Vol] 223 mg/dL <200 [facility] Work Phone: Comment on above: <200 mg/dL Desirable 200-240 mg/dL Borderline >240 mg/dL High Risk Eosinophils/100 WBC (Bld) 2.9 % 0-5 [facility] Work Phone: Glucose [Mass/Vol] 102 mg/dL 74-106 [facility] Work Phone: Comment on above: Fasting Glucose resu lt from 100 to 125 mg/dL suggests IMPAIRED HOMEOSTASIS per A.D.A. criteria. Neutrophils (Bld) [#/Vol] 5.2 10*3/uL 2.0-7.7 [facility] Work Phone: Neutrophils/100 WBC (Bld) 61.7 % 47-70 [facility] Work Phone: Potassium [Moles/Vol] 3.9 mmol/L 3.5-5.1 [facility] Work Phone: Protein [Mass/Vol] 7.4 g/dL 6.4-8.2 [facility] Work Phone: Sodium [Moles/Vol] 140 mmol/L 136-145 [facility] Work Phone: Triglyceride [Mass/Vol] 84 mg/dL <199 [facility] Work Phone: Comment on above: The drugs N-Acetylcy steine and Metamizole may falsely depress this assay.Serum Triglycerides Reference Interval Normal <150 mg/dL Borderline high 150 - 199 mg/dL High 200 - 499 mg/dL Very High > or = 500 mg/dL WBC (Bld) [#/Vol] 8.3 10*3/uL 4.4-11.0 [facility] Work Phone: Blood erythrocytes count (nu mber/volume)on 07-24-2021 RBC (Bld) [#/Vol] 4.66 10*6/uL 4.6-6.2 [facility] Work Phone: Blood hemoglobin measurement (mass/volume)on 07-24-2021 Hemoglobin (Bld) [Mass/Vol] 14.6 g/dL 13.0-16.5 [facility] Work Phone: Blood lymphocytes/100 leukoc yteson 07-24-2021 Lymphocytes/100 WBC (Bld) 22.8 % 19-41 [facility] Work Phone: Blood monocytes/100 leukocyt eson 07-24-2021 Monocytes/100 WBC (Bld) 11.4 % 0-10 [facility] Work Phone: Blood platelet mean volumeon 07-24-2021 Platelet mean volume (Bld) [Entitic vol] 10.1 fL 6.2-12.0 [facility] Work Phone: Determination of erythrocyte mean corpuscular volume (MCV)on 07-24-2021 MCV (RBC) [Entitic vol] 91.8 fL 80-94 [facility] Work Phone: Hematocrit Auto (Bld) [Volum e fraction]on 07-24-2021 Hematocrit (Bld) [Volume fraction] 42.8 % 40-54 [facility] Work Phone: Laboratory - Chemistry and C hemistry - challengeon 07-24-2021 ALP [Catalytic activity/Vol] 79 U/L 45-117 [facility] Work Phone: ALT [Catalytic activity/Vol] 15 U/L 16-61 [facility] Work Phone: CO2 [Moles/Vol] 27.0 mmol/L 21.0-32.0 [facility] Work Phone: Globulin (S) [Mass/Vol] 3.7 g/dL 2.2-4.2 [facility] Work Phone: Urea nitrogen/Creatinine [Mass ratio] 12.8 mg/mg 10-20 [facility] Work Phone: Laboratory - Hematology and Cell countson 07-24-2021 Erythrocyte distribution width (RBC) [Entitic vol] 42.0 fL 35.1-43.9 [facility] Work Phone: Erythrocyte distribution width (RBC) [Ratio] 12.5 % 11.6-14.6 [facility] Work Phone: Immature granulocytes/100 WBC (Bld) 0.400 % 0.0-0.9 [facility] Work Phone: Comment on above: IG% - Immature Granu locytes (promyelocytes, myelocytes and metamyelocytes) > 1% indicates that a LEFT SHIFT is Present. MCH (RBC) [Entitic mass] 31.3 pg 27.0-32.0 [facility] Work Phone: Nucleated RBC/100 WBC (Bld) [Ratio] 0 % 0-5 [facility] Work Phone: MCHC Auto (RBC) [Mass/Vol]on 07-24-2021 MCHC (RBC) [Mass/Vol] 34.1 g/dL 32-36 [facility] Work Phone: No Panel Informationon 07-24 Estimated GFR (MDRD) Amer 103 mL/min >60 [facility] Work Phone: Comment on above: GFR Calc Estimated GFR (MDRD) Non-Af Amer 85 mL/min >60 [facility] Work Phone: Comment on above: Non- GFR Calc Prostate Specific Antigen Total 16.50 ng/mL 0.0-4.0 [facility] Work Phone: Comment on above: This test was perfor med using the TPSA assay method for the[facility] system. Values obtained with differentassay methods cannot be used interchangably.When changing PSA assays in the course of monitoring apatient, additional sequential testing should be carriedout to confirm baseline values. Platelets bldon 07-24-2021 Platelets (Bld) [#/Vol] 340 10*3/uL 150-450 [facility] Work Phone: Serum or plasma albumin aaliyah urement (mass/volume)on 07-24-2021 Albumin [Mass/Vol] 3.7 g/dL 3.2-5.0 [facility] Work Phone: Serum or plasma albumin/glob ulin mass ratioon 07-24-2021 Albumin/Globulin [Mass ratio] 1.0 {ratio} 0.9-2.4 [facility] Work Phone: Serum or plasma calcium aaliyah urement (mass/volume)on 07-24-2021 Calcium [Mass/Vol] 9.2 mg/dL 8.5-10.1 [facility] Work Phone: Serum or plasma cholesterol in HDL measurement (mass/volume)on 07-24-2021 Cholesterol in HDL [Mass/Vol] 85 mg/dL >40 [facility] Work Phone: Comment on above: The drugs N-Acetylcy steine and Metamizole may falsely depress this assay. Reference Range HDL <40 mg/dL Low HDL Cholesterol HDL >or= 60 mg/dL High HDL Cholesterol Serum or plasma cholesterol in VLDL measurement (mass/volume)on 07-24-2021 Cholesterol in VLDL [Mass/Vol] 17 mg/dL 5-40 [facility] Work Phone: Serum or plasma creatinine m easurement (mass/volume)on 07-24-2021 Creatinine [Mass/Vol] 0.94 mg/dL 0.70-1.30 [facility] Work Phone: Comment on above: The validity of the calculated GFR & GFRAA in patients over 70 years has not been determined. Clinical correlation is essential. Serum or plasma low density lipoprotein (LDL) cholesterol measurement (mass/volume)on 07-24-2021 Cholesterol in LDL [Mass/Vol] 121 mg/dL 0-130 [facility] Work Phone: Serum or plasma urea nitroge n measurement (mass/volume)on 07-24-2021 Urea nitrogen [Mass/Vol] 12 mg/dL 7-18 [facility] Work Phone: Thin prep Papanicolaou smear with manual screeningon 07-24-2021 Thin prep Papanicolaou smear with manual screening 21 U/L 15-37 [facility] Work Phone: Thin prep Papanicolaou smear with manual screening 6 5-15 [facility] Work Phone: Phone Alistair 12-08-2018 Phone Msg - From: Miryam Le To: PEDRO PABLO GEE DO; Sent: 12/08/2018 09:24:40 EDT Subject: Ear drops too expensive Patient's' called and said they went to fill the Rx for ear drops and it was $240. Is there something cheaper you could calll in. LV: 12/07/18 FV: 12/22/18 : Ida From: PEDRO PABLO GEE DO To: Miryam Le; Sent: 12/08/2018 09:36:56 EDT Subject: RE: Ear drops too expensive done Thank you. Will let patient know. Normal [facility] AMB ENT Physician Progress N lilia 12-07-2018 AMB ENT Physician Progress Note Chief Complaint left ear hearing loss and pain History of Present Illness Patient is here for his left ear. He has a history with recurrent myringitis and otorrhea in that left ear in the past. He feels blocked, wet and little bit painful. Review of Systems Unremarkable other than his left ear Physical Exam Vitals & Measurements Systolic Blood Pressure: 137 mmHg (12/07/18 16:28:00) Diastolic Blood Pressure: 82 mmHg (12/07/18 16:28:00) Height/Length Measured: 173 cm (12/07/18 16:28:00) Weight Measured: 83 kg (12/07/18 16:28:00) Body Mass Index Measured: 27.73 kg/m2 (12/07/18 16:28:00) Depression Screening Scores Initial Depression Screen Score: 0 (12/07/18 16:28:00) Fall Risk Assessment Is the patient ambulatory (mobile): Yes (12/07/18 16:28:00) Have you had a fall within the past: No (12/07/18 16:28:00) Have you had 2 or more falls in the past: No (12/07/18 16:28:00) Examination of the right ear is unremarkable. There are no lesions of the ear canal, the middle ear or the tympanic membrane. Evaluation left ear reveals wax was carefully cleaned. Once it was removed he is got some otorrhea and what appears to be a myringitis of the left tympanic membrane. Assessment/Plan 1. Acute myringitis of left ear H73.002 Ciprodex 4 drops that left ear twice a day for 10 days. I will see him back in 2 weeks Ordered: ciprofloxacin-dexamet hasone 0.3%-0.1% otic suspension, 4 drops, Left Ear, BID, # 7.5 mL, Refill(s) 0, Date: 12/07/2018 16:39:00 EDT, Pharmacy: [id number] [place],, 4 drops Left Ear BID,x10 days AMB Office/Outpt Est Pt (approx 10 min) [id number], 12/07/2018 16:38:00 EDT, Acute myringitis of left ear Problem List/Past Medical History Ongoing H/O: stroke Historical No qualifying data Procedure/Surgical History VASECTOMY. Medications amLODIPine 5 mg oral tablet, 7.5 mg= 1.5 tabs, ORAL, DAILY ciprofloxacin-dexamet hasone 0.3%-0.1% otic suspension, 4 drops, Left Ear, BID Crestor 5 mg oral tablet, 2.5 mg= 0.5 tabs, ORAL, DAILY Proscar 5 mg oral tablet, 5 mg= 1 tabs, ORAL, DAILY Allergies No Known Allergies Social History Domestic Concerns No, No, Emotional support available Yes. 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 Hospital finance concerns: No. No, Family/Friends available to help: Yes. Home/Environment Lives with Significant other. Living situation: Home/Independent. Home monitoring equipment: B/P MACHINE. Special/Community resources: None. Mobility prior to admit: Independent. Home Barriers: Internal Stairs. Will patient require additional/new services upon discharge? No. Nutrition/Health Diabetic, Low sodium, Appetitie: Good. Unintentional weight change: No. Tobacco Former smoker, quit more than 30 days ago Tobacco Use:. Former smoker, 30 year(s). Started age 18 Years. Stopped age 58 Years. Exposure No Exposure. Smoking cessation packet Declined. Desires smoking cessation counselor: No. Family History Heart attack....: Grandfather. Normal [facility] Vital Signs Date Time Vital Sign Value Performing Clinician Faci lity 11-04-2023 13:11-0400 Body height 172.7 cm Valerio Gamble MD Work Phone: [facility] 11-04-2023 13:11-0400 Body mass index (BMI) [Ratio] 26.61 kg/m2 Valerio Gamble MD Work Phone: [facility] 11-04-2023 13:11-0400 Body weight 79.38 kg Valerio Gamble MD Work Phone: [facility] 11-04-2023 13:11-0400 Diastolic blood pressure 90 mm[Hg] Valerio Gamble MD Work Phone: [facility] 11-04-2023 13:11-0400 Heart rate 55 /min Valerio Gamble MD Work Phone: [facility] 11-04-2023 13:11-0400 SaO2% (BldA) [Mass fraction] 97 % Valerio Gamble MD Work Phone: [facility] 11-04-2023 13:11-0400 Systolic blood pressure 150 mm[Hg] Valerio Gamble MD Work Phone: [facility] 09-23-2022 16:02-0400 Body height 167.64 cm [facility] 09-23-2022 16:02-0400 Body mass index (BMI) [Ratio] 29.2 kg/m2 [facility] 09-23-2022 16:02-0400 Body temperature 97.5 [degF] [facility] 09-23-2022 16:02-0400 Body weight 82.1 kg [facility] 09-23-2022 16:02-0400 Diastolic blood pressure 64 mm[Hg] [facility] 09-23-2022 16:02-0400 Heart rate 55 /min [facility] 09-23-2022 16:02-0400 Respiratory rate 18 /min [facility] 09-23-2022 16:02-0400 SaO2% (BldA) [Mass fraction] 96 % [facility] 09-23-2022 16:02-0400 Systolic blood pressure 118 mm[Hg] [facility] 08-29-2021 20:14-0400 Body height 167.64 cm [facility] Work Phone: 08-29-2021 20:14-0400 Body mass index (BMI) [Ratio] 30.2 kg/m2 [facility] Work Phone: 08-29-2021 20:14-0400 Body temperature 97.7 [degF] [facility] Work Phone: 08-29-2021 20:14-0400 Body weight 84.82 kg [facility] Work Phone: 08-29-2021 20:14-0400 Diastolic blood pressure 70 mm[Hg] [facility] Work Phone: 08-29-2021 20:14-0400 Heart rate 60 /min [facility] Work Phone: 08-29-2021 20:14-0400 Respiratory rate 18 /min [facility] Work Phone: 08-29-2021 20:14-0400 SaO2% (BldA) [Mass fraction] 96 % [facility] Work Phone: 08-29-2021 20:14-0400 Systolic blood pressure 130 mm[Hg] [facility] Work Phone: 07-24-2021 16:09-0400 Body mass index (BMI) [Ratio] 30 kg/m2 [facility] Work Phone: 07-24-2021 16:09-0400 Body temperature 97.7 [degF] [facility] Work Phone: 07-24-2021 16:09-0400 Body weight 85.72 kg [facility] Work Phone: 07-24-2021 16:09-0400 Diastolic blood pressure 70 mm[Hg] [facility] Work Phone: 07-24-2021 16:09-0400 Heart rate 85 /min [facility] Work Phone: 07-24-2021 16:09-0400 Respiratory rate 18 /min [facility] Work Phone: 07-24-2021 16:09-0400 SaO2% (BldA) [Mass fraction] 96 % [facility] Work Phone: 07-24-2021 16:09-0400 Systolic blood pressure 132 mm[Hg] [facility] Work Phone: Encounters Encounter Date Encounter Type Care Provider Facility Start: 12-15-2023 Encounter for preprocedural laboratory examination [facility] Start: 11-24-2023 End: 11-24-2023 ambulatory [facility] Facility:[facility] Start: 11-18-2023 End: 11-18-2023 ambulatory [facility] Facility:[facility] Start: 11-13-2023 End: 11-13-2023 ambulatory Lan Buitrago Facility:[facility] Start: 11-04-2023 End: 11-04-2023 ambulatory LAN BUITRAGO Facility:[facility] Start: 11-04-2023 End: 11-04-2023 Patient encounter procedure Valerio Gamble MD Work Phone: Cardiology Comment on above: Encounter for screen ing for cardiovascular disorders (Primary Dx) Start: 11-02-2023 End: 11-02-2023 Emergency department patient visit LAN BUITRAGO Facility:[facility] Start: 05-18-[address] [facility] Work Phone: Start: 09-27-2022 End: 09-27-2022 ambulatory [facility] Work Phone: Start: 09-27-2022 End: 09-27-2022 Patient encounter procedure [facility]Labor[facility], Specimen Work Phone: Start: 09-04-2022 End: 09-04-2022 ambulatory [facility] Work Phone: Start: 09-04-2022 End: 09-04-2022 Patient encounter procedure [facility], Specimen Work Phone: Start: 05-14-2022 Letter encounter [facility]efan Start: 02-18-2022 Letter encounter [facility] Start: 09-14-2021 End: 09-14-2021 Patient encounter procedure [facility] Start: 08-29-2021 End: 08-29-2021 Patient encounter procedure [facility], Specimen Start: 07-24-2021 End: 07-24-2021 Patient encounter procedure [facility] Specimen Start: 05-28-2020 End: 05-28-2020 Orders Only Lana Blackwell Work Phone: [facility] Internal Medicine Start: 05-14-2020 End: 05-14-2020 Letter encounter [facility] Procedures Date Procedure Procedure Detail Performing Clinician Start: 09-14-2021 MRI of pelvis with contrast Start: 09-14-2021 X-ray of eye for for eign body Start: 10-24-2015 Lipid 1996 panel - S moreno or Plasma Valerio Gamble MD Work Phone: Start: 04-19-2004 Colonoscopy Valerio chow MD Work Phone: Plan of Treatment Date Care Activity Detail Author Start: 11-01-2026 Diabetes Screening Diabetes Screenin g [facility] Start: 11-04-2023 End: 02-03-2024 Apolipoprotein B [Mass/volume] in Serum or Plasma APOLIPOPROTEIN B BLD Lab Routine Encounter for screening for cardiovascular disorders Expected: 11/04/2023, Expires: 02/03/2024 [facility] Comment on above: Expected: 11/04/2023 , Expires: 02/03/2024 Start: 11-04-2023 End: 02-03-2024 C reactive protein [Mass/volume] in Serum or Plasma by High sensitivity method HIGH SENSITIVITY C-REACTIVE PROTEIN Lab Routine Encounter for screening for cardiovascular disorders Expected: 11/04/2023, Expires: 02/03/2024 [facility] Comment on above: Expected: 11/04/2023 , Expires: 02/03/2024 Start: 11-04-2023 End: 02-03-2024 Lipid 1996 panel - Serum or Plasma LIPID PANEL BASIC Lab Routine Encounter for screening for cardiovascular disorders Expected: 11/04/2023, Expires: 02/03/2024 [facility] Work Phone: Comment on above: Expected: 11/04/2023 , Expires: 02/03/2024 Start: 11-04-2023 End: 02-03-2024 Lipoprotein a [Mass/volume] in Serum or Plasma LIPOPROTEIN (A) Lab Routine Encounter for screening for cardiovascular disorders Expected: 11/04/2023, Expires: 02/03/2024 [facility] Comment on above: Expected: 11/04/2023 , Expires: 02/03/2024 Start: 11-02-2023 Covid-19 Vaccine ( season) Covid-19 Vaccine ( season) [facility] Start: 11-02-2023 Influenza vaccination Influenza Vacc ine (#1) [facility] Start: 03-03-2023 Advance Directive Discussion Advance Directive Discussion [facility] Start: 11-01-2022 Influenza vaccination Influenza Vacc ine (#1) [facility] Start: 12-01-2021 Influenza vaccination Influenza Vacc ine (#1) [facility] Start: 10-23-2020 Lipid panel Lipid Screening [facility] Start: 12-02-2019 Influenza vaccination Influenza Vacc ine (#1) [facility] Start: 2018 Pneumococcal polysaccharide vaccine (product) Pneumococcal Vaccine: PPSV23 (1) [facility] Start: 2018 Pneumococcal vaccination [facility] Start: 2018 Pneumococcal Vaccine : 65+ (1 of 1 - PCV) Pneumococcal Vaccine: 65+ (1 of 1 - PCV) [facility] Start: 2013 Hepatitis B (HBV) Vaccine (optional start 60+ years) Hepatitis B (HBV) Vaccine (optional start 60+ years) [facility] Start: 2013 RSV Vaccine (1 - 1-d ose 60+ series) RSV Vaccine (1 - 1-dose 60+ series) [facility] Start: 2013 RSV vaccine (optiona l 60+ years) RSV vaccine (optional 60+ years) [facility] Start: 04-19-2007 Screening for malign ant neoplasm of colon [facility] Start: 04-12-2005 Screening for malign ant neoplasm of colon Fecal Occult Blood [facility] Start: 08-14-2003 Measurement of occul t blood in single stool specimen [facility] Start: 08-14-2003 Screening for malign ant neoplasm of colon CRC Screening [facility] Start: 08-14-2003 Shingrix Vaccine (1 of 2) Shingrix Vaccine (1 of 2) [facility] Start: 08-14-2003 Varicella-zoster vac cine (product) Shingles (RZV) Vaccine (1 of 2) [facility] Start: 1998 Screening for malign ant neoplasm of colon [facility] Start: 1988 Cholesterol [Mass/Vol] Cholesterol [facility] Start: 1988 [facility] Start: 1972 Hepatitis A (HAV) Vaccine (optional start 19+ years) Hepatitis A (HAV) Vaccine (optional start 19+ years) [facility] Start: 1972 Urine microalbumin profile DTaP,Tdap,Td Vaccine (1 - Tdap) [facility] Start: 08-14-1971 Annual PCP Team Risk Management Consultant lizeth Disease Visit Annual PCP Team Chronic Disease Visit [facility] Start: 08-14-1971 Anxiety Screening Anxiety Screening [facility] Start: 08-14-1971 BP Controlled (<130/80) BP Controlle d (<130/80) [facility] Start: 08-14-1971 Depression Screening Depression Scre ening [facility] Start: 08-14-1971 Hepatitis C antibody , confirmatory test Hepatitis C Antibody [facility] Start: 08-14-1971 [facility] C [facility] Start: 08-14-1971 Tetanus + diphtheria + acellular pertussis vaccine (product) Tdap Booster [facility] Start: 1954 Pneumococcal vaccination Pneum ococcal Vaccine: PCV13 (1 - PCV13 Required) [facility] Start: 02-12-1954 COVID-19 Vaccine (#1) COVID-19 Vacci ne (#1) [facility] Start: 1953 Abdominal aortic aneurysm screening Abdominal Aortic Aneurysm Screening [facility] Start: 1953 [facility] Start: [facility] Screening for malign ant neoplasm of colon [facility] End: 12-03-2024 CT Heart and Coronary arteries for calcium scoring WO contrast CT CALCIUM SCORING SELF PAY Radiology Routine Encounter for screening for cardiovascular disorders 1 Occurrences starting 11/04/2023 until 12/03/2024 [facility] Comment on above: 1 Occurrences starti ng 11/04/2023 until 12/03/2024 [facility] Payers Date Payer Category Payer Self-pay [id number] 2023 Unknown MMO MMO MEDICARE SUPPLEMENT [id number] 2023-Present [phone] [address] [place] [address] Indemnity [id number] 2023 Unknown [id number] 2018 Medicare MEDICARE MEDICAR E A AND B [id number] 2018-Present [phone] [address] [address] [place] [address] Medicare [id number] 2018 Medicare [id number] 2015 Worker's Compensation 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 2015 Worker's Compensation WORKER'S C OMP MINUTE [employer] [place] [id number] 2015-Present [id number] [id number] [place] [address] Worker's Comp [id number] Unknown [id number] Unknown [id number] Unknown [id number] Social History Date Type Detail Facility Start: 02-17-2015 End: 08-27-2021 Tobacco smoking status AKIS Unknown if ever smoked [facility] Start: 1955 Sex Assigned At Not on file [facility] Start: 1955 Sex Assigned At Male [facility] Start: 12-10-2010 Tobacco smoking stat us AKIS Ex-smoker [facility] History of tobacco use Current smoker [facility] Start: 12-10-2010 Tobacco use and exposure Smokeless tobacco non-user [facility] Start: 11-04-2023 Alcoholic beverage intake Current drinker of alcohol (finding) [facility] Start: 02-17-2015 End: 11-04-2023 Alcoholic beverage intake [facility] Work Phone: Start: 02-17-2015 End: 11-04-2023 Tobacco use panel [facility] Work Phone: National Score (1-100), lower number is lower risk 73 [facility] Progress note 11-04-2023 Note Date & Type Note Facility 11-04-2023 Note HNO ID: [id number] Author: VALERIO GAMBLE MD Service: ? Author Type: Physician Type: Progress Notes Filed: 11/04/2023 13:34 Note Text: [facility] Nayeli Tracy Department of Cardiovascular Medicine REGIONAL CARDIOLOGY OUTPATIENT VISIT DATE November 04, 2023 OUTPATIENT VISIT TYPE NEW PRIMARY CARE PHYSICIAN: Lan Buitrago (Dianne) [address] [address] REFERRING PHYSICIAN: Meg Bonilla [address] [facility] [address] CHIEF COMPLAINT: Establish care Subjective HISTORY OF PRESENT ILLNESS: Mr. 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 He has no past medical history of Asthma, Atrial fibrillation ([facility]), AVM (arteriovenous malformation), Cancer ([facility]), Carotid artery stenosis, Chronic renal insufficiency, Congestive heart failure ([facility]), Coronary artery disease, Deep vein thrombosis (DVT) ([facility]), Depression, Diabetes ([facility]), Hypercoagulable state ([facility]), Intracranial aneurysm, Obesity, or Obstructive sleep apnea. who presents today to establish care. Patient had an episode of chest pressure. He went to the ER where ACS, PE was ruled out. He lives here and in [place] for half the time. While he is here he stays very active but in [place] he is more relaxed. The symptoms had responded to 2 baby aspirins and resolved. When he is physically active here he denies cardiac symptoms. He denies chest pain, shortness of breath, orthopnea, cough, edema, palpitations, PND, lightheadedness or syncope. PAST CARDIAC HISTORY: None PAST MEDICAL HISTORY No date: Dyslipidemia No date: Hypertension 11/17/2015: 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 No date: Smoking No past surgical history on file. SOCIAL HISTORY Social History Tobacco Use Smoking status: Former Smokeless tobacco: Never Substance Use Topics Alcohol use: Yes Alcohol/week: 21.0 standard drinks of alcohol Types: 21 Cans of beer per week Drug use: No FAMILY HISTORY Adopted: Yes ALLERGIES: ALLERGIES No Known Allergies MEDICATIONS: tadalafil 5 mg mally (CPD) Take 5 mg by mouth as directed. Allow 1 mally to slowly dissolve under tongue or between cheek and gum once daily aspirin, enteric coated (ASPIRIN, ENTERIC COATED) 81 mg EC tablet Take 81 mg by mouth once daily. REVIEW OF SYSTEMS: All systems reviewed and pertinent positives in HPI. PHYSICAL EXAMINATION: BP 150/90 Pulse (!) 55 Ht 172.7 cm (5' 8) Wt 79.4 kg (175 lb) SpO2 97% BMI 26.61 kg/m? General: Well appearing, in no acute distress. Skin: No clubbing, no cyanosis. Eyes: Extra ocular movements intact Oropharynx: Teeth in good repair. Neck: No jugular venous distention, no carotid bruits, carotids have a normal upstroke, no palpable thyromegaly. Lungs: Clear to auscultation bilaterally, no wheezing or rhonchi. Heart: Regular rhythm, PMI not displaced, S1, S2 normal, no S3, no S4, no heaves, no rub and no murmur. Abdomen: Soft, nontender, bowel sounds normal, no palpable organomegaly, no bruits. Extremities: No peripheral edema . Grade 2/4 distal pulses bilaterally. Neuro: Oriented to person, place and time, alert, cooperative, gait coordinated. CARDIOVASCULAR MEDICINE TESTING: Electrocardiogram: 11/02/2023: Sinus bradycardia Echocardiogram:10/23/2015: - The left ventricle is normal in size. Left ventricular systolic function is normal. EF = 71 ? 5% (2D biplane) Baseline left ventricular diastolic function is normal. - The right ventricle is normal in size. Right ventricular systolic function is normal. - There are no significant valvular abnormalities. - The patient has not had a prior CC echocardiographic exam for comparison. I have personally reviewed the Electrocardiogram and Echocardiogram. Impression/Recommendations IMPRESSION: Mr. Dia is a 68 year old male with h/o white coat HTN here to establish care. PLAN AND RECOMMENDATIONS: (Z13.6) Encounter for screening for cardiovascular disorders (primary encounter diagnosis) Plan: LIPID PANEL BASIC, LIPOPROTEIN (A), HIGH SENSITIVITY C-REACTIVE PROTEIN, APOLIPOPROTEIN B BLD, CT CALCIUM SCORING SELF PAY CONTACT INFORMATION: Valerio Gamble MD 11/04/2023 [facility] History of Present illness Narrative 11-04-2023 Valerio Gamble MD - 11/04/2023 1:20 PM EDT Note Date & Type Note Facility 11-04-2023 History of Presen t illness Narrative [facility]ay[facility] Tracy Department of Cardiovascular Medicine REGIONAL CARDIOLOGY OUTPATIENT VISIT DATE November 04, 2023 OUTPATIENT VISIT TYPE NEW PRIMARY CARE PHYSICIAN: Lan Buitrago (Eliz) [address] [address] REFERRING PHYSICIAN: Meg Bonilla [address] [facility] [address] CHIEF COMPLAINT: Establish care Subjective HISTORY OF PRESENT ILLNESS: Mr. 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 He has no past medical history of Asthma, Atrial fibrillation ([facility]), AVM (arteriovenous malformation), Cancer ([facility]), Carotid artery stenosis, Chronic renal insufficiency, Congestive heart failure ([facility]), Coronary artery disease, Deep vein thrombosis (DVT) ([facility]), Depression, Diabetes ([facility]), Hypercoagulable state ([facility]), Intracranial aneurysm, Obesity, or Obstructive sleep apnea. who presents today to establish care. Patient had an episode of chest pressure. He went to the ER where ACS, PE was ruled out. He lives here and in [place] for half the time. While he is here he stays very active but in [place] he is more relaxed. The symptoms had responded to 2 baby aspirins and resolved. When he is physically active here he denies cardiac symptoms. He denies chest pain, shortness of breath, orthopnea, cough, edema, palpitations, PND, lightheadedness or syncope. PAST CARDIAC HISTORY: None PAST MEDICAL HISTORY No date: Dyslipidemia No date: Hypertension 11/17/2015: 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 No date: Smoking No past surgical history on file. SOCIAL HISTORY Social History Tobacco Use Smoking status: Former Smokeless tobacco: Never Substance Use Topics Alcohol use: Yes Alcohol/week: 21.0 standard drinks of alcohol Types: 21 Cans of beer per week Drug use: No FAMILY HISTORY Adopted: Yes ALLERGIES: ALLERGIES No Known Allergies MEDICATIONS: tadalafil 5 mg mally (CPD) Take 5 mg by mouth as directed. Allow 1 mally to slowly dissolve under tongue or between cheek and gum once daily aspirin, enteric coated (ASPIRIN, ENTERIC COATED) 81 mg EC tablet Take 81 mg by mouth once daily. REVIEW OF SYSTEMS: All systems reviewed and pertinent positives in HPI. PHYSICAL EXAMINATION: BP 150/90 Pulse (!) 55 Ht 172.7 cm (5' 8) Wt 79.4 kg (175 lb) SpO2 97% BMI 26.61 kg/m General: Well appearing, in no acute distress. Skin: No clubbing, no cyanosis. Eyes: Extra ocular movements intact Oropharynx: Teeth in good repair. Neck: No jugular venous distention, no carotid bruits, carotids have a normal upstroke, no palpable thyromegaly. Lungs: Clear to auscultation bilaterally, no wheezing or rhonchi. Heart: Regular rhythm, PMI not displaced, S1, S2 normal, no S3, no S4, no heaves, no rub and no murmur. Abdomen: Soft, nontender, bowel sounds normal, no palpable organomegaly, no bruits. Extremities: No peripheral edema . Grade 2/4 distal pulses bilaterally. Neuro: Oriented to person, place and time, alert, cooperative, gait coordinated. CARDIOVASCULAR MEDICINE TESTING: Electrocardiogram: 11/02/2023: Sinus bradycardia Echocardiogram:10/23/2015: - The left ventricle is normal in size. Left ventricular systolic function is normal. EF = 71 5% (2D biplane) Baseline left ventricular diastolic function is normal. - The right ventricle is normal in size. Right ventricular systolic function is normal. - There are no significant valvular abnormalities. - The patient has not had a prior CC echocardiographic exam for comparison. I have personally reviewed the Electrocardiogram and Echocardiogram. Impression/Recommendations IMPRESSION: Mr. Dia is a 68 year old male with h/o white coat HTN here to establish care. PLAN AND RECOMMENDATIONS: (Z13.6) Encounter for screening for cardiovascular disorders (primary encounter diagnosis) Plan: LIPID PANEL BASIC, LIPOPROTEIN (A), HIGH SENSITIVITY C-REACTIVE PROTEIN, APOLIPOPROTEIN B BLD, CT CALCIUM SCORING SELF PAY CONTACT INFORMATION: Valerio Gamble MD 11/04/2023 documented in this encounter [facility] Clinical Note 11-02-2023 Note Date & Type Note Facility 11-02-2023 Note SARS-COV-2 (AGENT OF COVID-19) RNA: Not detected INFLUENZA A RNA: Not detected INFLUENZA B RNA: Not detected RESPIRATORY SYNCYTIAL VIRUS (RSV) RNA: Not detected [facility] Comment on above: Performed By: #### [id number] #### [facility] CLIA [id number] [address] [facility] Evaluation note Note Date & Type Note Facility Evaluation note Diagnosis Onset Date BPH with elevated PSA acute Hyperlipemia acute Hypertension chronic BPH with elevated PSA acute Cellulitis acute Swelling of right foot acute [facility] Work Phone: Evaluation note Note Date & Type Note Facility Evaluation note No assessment information availa ble [facility] Work Phone: Evaluation note Note Date & Type Note Facility Evaluation note Diagnosis Onset Date Elevated PSA acute Hypertension chronic [facility] Work Phone: Evaluation note Note Date & Type Note Facility Evaluation note Diagnosis Encounter for screening for cardiovascular disorders- Primary Screening for other and unspecified cardiovascular conditions documented in this encounter [facility] Summary Purpose Family History Relationship Condition Age at Onset Recorded Date/T yara Not Specified Coronary artery disease Unknown Advance Directives No Advanced Directives Records FoundNo Advanced Directives Records FoundNo Advanced Directives Records FoundNo Advanced Directives Records Found Chief Complaint and Reason for Visit Chief Complaint medication refills l abs drawn R) foot looked at & lab (PSA) Reason for Visit BPH with elevated PS A Hyperlipemia Hypertension BPH with elevated PSA Cellulitis Swelling of right foot Chief Complaint medication refills l abs drawn R) foot looked at & lab (PSA) ELEVATED PROSTATE SPECIFIC ANTIGEN Reason for Visit BPH with elevated PS A Hyperlipemia Hypertension BPH with elevated PSA Cellulitis Swelling of right foot Chief Complaint EKG BILATERAL PROSTATE BIOPSY Reason for Visit Elevated PSA Hypertension Reason for Referral Specialty Diagnoses / Procedures Referred By Contac t Referred To Contact CT IMAGING Diagnoses Encounter for screening for cardiovascular disorders Procedures CT CALCIUM SCORING SELF PAY UNLISTED COMPUTED TOMOGRAPHY PROCEDURE CT HEART NO CONTRAST QUANT [place] [address] [place] [address] [place] [address] Referral ID Status Reason Start Date Expiration Date Visits Requested Visits Authorized [id number] New Request Auto-Generat ed Referral 11/04/2023 12/03/2024 1 1 Additional Source Comments (unrecognized sect ion and content) No Status Records FoundNo Status Records FoundNo Status Records FoundNo Status Records Found INFORMATION SOURCE (unrecogn ized section and content) DATE CREATED AUTHOR 12/08/2018 [facility] DATE CREATED AUTHOR AUTHOR'S ORGANIZ ATION 11/02/2023 [facility] DATE CREATED AUTHOR AUTHOR'S ORGANIZ ATION 11/05/2023 [facility] DATE CREATED AUTHOR AUTHOR'S ORGANIZ ATION 12/22/2023 [facility] Goals (unrecognized section and content) Goals may be documented in a n alternate sectionGoals may be documented in an alternate sectionGoals may be documented in an alternate sectionGoals may be documented in an alternate section Care Teams (unrecognized sec tion and content) Team Status: Active Member Role Status Dates Lan Buitrago DRIER BELT CONVEYOR, DRIER BELT CONVEYOR-C Primary Care Provider Active Team Status: Inactive Member Role Status Dates Lan Buitrago DRIER BELT CONVEYOR, DRIER BELT CONVEYOR-C Primary Care Provider, Attend ing Provider Active Team Status: Inactive Member Role Status Dates Lan Buitrago DRIER BELT CONVEYOR, DRIER BELT CONVEYOR-C Primary Care Pr ovider, Attending Provider, Referring Provider Active Team Status: Inactive Member Role Status Dates Lan Buitrago DRIER BELT CONVEYOR, DRIER BELT CONVEYOR-C Primary Care Provider Active Dr. Fred Adair MD Attending Provider, Referr ing Provider Active Director Of Culture Relationship Specialty Start Date End Date Manjit Buitragopamela Coffey, GENERAL ASSEMBLER INSTALLER.TOBACCO SAMPLE PULLER [address] [place] [address] PCP - General Family Medicine 11/02/23 Source Comments (unrecognize d section and content) In the event this informatio n is protected by the Federal Confidentiality of Alcohol and Drug Abuse Patient Records regulations: The Federal rules restrict any use of the information to criminally investigate or prosecute any alcohol or drug abuse patient.[facility] Reason for Visit (unrecogniz ed section and content) Reason Comments CARD New Patient Consult ED F/U Chest Pr essure FOR RECORDS PERTAINING TO PATIENTS WHO ARE OR HAVE BEEN ENROLLED IN A CHEMICAL DEPENDENCY/SUBSTANCEABUSE PROGRAM, SOME INFORMATION MAY BE OMITTED. This clinical summary was aggregated from multiple sources. Caution should be exercised in using it in the provision of clinical care. This summary normalizes information from multiple sources, and as a consequence, information in this document may materially change the coding, format and clinical context of patient data. In addition, data may be omitted in some cases. CLINICAL DECISIONS SHOULD BE BASED ON THE PRIMARY CLINICAL RECORDS. [facility]. provides no warranty or guarantee of the accuracy or completeness of information in this document.
[2024-12-04 01:35] LABS: Hematocrit 44.2 % (40-54); Hemoglobin 14.8 g/dL (13.0-16.5); Immature Granulocytes Count 0.030 X10^3/uL (0.0-0.0); Mean Corp Hgb Conc 33.5 g/dL (32-36); Mean Corpuscular Volume 89.8 fL (80-94); Mean Platelet Vol. 11.7 fl (6.2-12.0); NRBC Flagged by Analyzer 0 % (0-5); Platelet Count 344 K/mm3 (150-450); RBC Distribution Width CV 12.9 % (11.6-14.6); RBC Distribution Width SD 42.6 fl (35.1-43.9); Red Blood Count 4.92 M/mm3 (4.6-6.2); White Blood Count 7.8 K/mm3 (4.4-11.0)
[2024-12-04 02:30] LABS: Cholesterol 235 mg/dL (<=200); Low Density Lipoprotein Calc. 116 mg/dL; Triglycerides 187 mg/dL; Very Low Density Lipoprotein 37 mg/dL (5-40); cholesterol:hdl ratio screen 2.89
[2024-12-04 02:38] LABS: AST(SGOT) 21 U/L (<=37); Alanine Aminotransfer ALT/SGPT 8 U/L (<=46); Albumin, Serum 4.2 g/dL (3.4-4.8); Alkaline Phosphatase 77 U/L (40-129); Anion Gap 12 (5-15); BUN 14 mg/dL (4-19); BUN/Creat Ratio 15.0 RATIO (10-20); Calcium,Total 9.7 mg/dL (7.6-11.0); Carbon Dioxide 22.2 mmol/L (21.0-32.0); Chloride 105 mmol/L (98-108); Globulin 2.8 g/dL (2.2-4.2); Glucose 105 mg/dL (70-99); Potassium 4.4 mmol/L (3.3-5.1)
== END | disposition home or self-care (01) ==
PROVIDERS: PCP Nurse Practitioner; Visit Provider Nurse Practitioner
DX: I25.10 Atherosclerotic heart disease of native coronary artery without angina pectoris (principal); I10 Essential (primary) hypertension; E78.2 Mixed hyperlipidemia
CPT/HCPCS: 80053; 80061; 85025

== ENCOUNTER → 2025-01-15 | Outpatient (CLI) | payer MEDICARE, OTHER, SELFPAY ==
--- NOTE | 2025-01-15 10:35 | RAD_ITS ---
PROCEDURE: KNEE 4 OR MORE VIEWS 01/15/2025 REASON FOR EXAM: P TECHNIQUE: Procedure Code: ADN Modality: DX Procedure: KNEE 4 OR MORE VIEWS Laterality: Right COMPARISON: None FINDINGS: Bones: Diffuse osteopenia of the osseous structures of the right knee are noted. There are no fractures or dislocations. Joints: Mild tricompartmental osteoarthritic changes are noted. There is a small spur off the posterior superior, posterior inferior, anterior superior and anterior inferior aspect of the patella. Effusion: There is a small suprapatellar bursa effusion. Soft tissues: Soft tissue swelling of the knee is noted. RAD/Knee 4 or More Views IMPRESSION: Diffuse osteopenia of the osseous structures of the right knee are noted. There are no fractures or dislocations. Mild tricompartmental osteoarthritic changes are noted. There is a small suprapatellar bursa effusion. Soft tissue swelling of the knee is noted. Reading Location: [id number]
--- OUTSIDE RECORDS SUMMARY | 2025-01-15 10:40 | XMS RPT_ITS | CCD ---
Author Organization [facility] Inform ion [facility] OPTOMETRIST [facility] Care Team Providers Care Wildfire Prevention Specialist Name Role Phone Unavailable Primary Care Provider UnavailLAN New Primary Care Unavailable MEG BONILLA Attending Unavailable Fish COLLISION WORKER.INSTRUMENT CHECKERLan Primary Care Provide r LAN BUITRAGO Primary Care Unavailable MEG BONILLA Referring Unavailable VALERIO GAMBLE Attending Unavailable Unavailable Primary Care Provider Unavailjacobo Buitrago REVERSERLan Attending Unavailable Fish REVERSERLan Primary Care Unavailable Fish REVERSER-C, Lan Primary Care Physician Fish REVERSER-C, Lan Attending Physician Allergies Allergy Classification Reported Allergen(s) Allergy Type Date of Onset Reaction(s) Facility (5 sources) atorvastatin Drug Allergy 03-17-2018 muscle aches [facility] (1 source) atorvastatin Drug Allergy 03-17-2018 [facility] Repository Medications Current Medications Medication Drug Class(es) Dates Sig (Normalized) Sig (Original) tadalafil 5 mg oral tablet (5 sources) Phosphodiesterase 5 Inhibitor Start: 07-24-2021 take 1 tablet by mouth once daily Tadalafil (Cialis) 5 mg tablet Active 5 mg PO DAILY July 24, 2021 12:00am Complies with drug therapy tadalafil 5 mg mally (CPD) (1 source) [...] take 7.5 mg by mouth once daily as needed Amlodipine 5 mg tablet Discontinued 7.5 mg PO DAILY as needed July 16, 2019 8:04pm August 02, 2019 3:16pm Start: 03-17-2018 End: 08-02-2019 take 7.5 mg by mouth once daily Amlodipine Discontinue d 7.5 MG PO DAILY July 16, 2019 8:04pm August 02, 2019 3:16pm Start: 03-17-2018 End: 03-17-2018 take 1 tablet by mouth once daily Amlodipine 5 mg tablet Discontinued 5 mg PO DAILY March 17, 2018 1:00am March 17, 2018 5:39pm Start: 03-17-2018 End: 03-17-2018 take 1 tablet by mouth once daily Amlodipine 2.5 mg tablet Discontinued 2.5 mg PO DAILY March 17, 2018 1:00am March 17, 2018 5:38pm amoxicillin 875 mg / clavulanate 125 mg oral tablet (5 sources) Penicillin-class Antibacterial Start: 08-29-2021 End: 11-27-2021 Amoxicillin-Pot Clavulanate 875-125 mg tablet Discontinued 1 {tbl} PO TWICE A DAY 20 August 29, 2021 12:00am November 27, 2021 3:09pm Start: 08-29-2021 End: 11-27-2021 take 1 tablet by mouth twice daily Amoxicillin-Pot Clavulanate Discontinued 1 TABLET PO TWICE A DAY August 29, 2021 12:00am November 27, 2021 3:09pm aspirin 81 mg delayed release oral tablet (6 sources) Platelet Aggregation Inhibitor, Nonsteroidal Anti-inflammatory Drug Start: 03-17-2018 End: 12-03-2024 Aspirin (Adult Low Dose Aspirin) 81 mg tablet,delayed release (DR/EC) Discontinued 81 mg PO DAILY March 17, 2018 1:00am December 03, 2024 4:37pm finasteride 5 mg oral tablet (15 sources) 5-alpha Reductase Inhibitor Start: 03-17-2018 End: 07-24-2021 take 1 tablet by mouth once daily Finasteride (Proscar) 5 mg tablet Discontinued 5 mg PO DAILY 90 3 March 20, 2019 11:17am July 24, 2021 4:22pm Garlic (5 sources) Non-Standardized Food Allergenic Extract Start: 03-20-2019 End: 07-24-2021 take 1 capsule by mouth after mealtime Garlic 1,000 mg capsule Discontinued 1000 mg PO after meals March 20, 2019 1:00am July 24, 2021 4:22pm Start: 03-20-2019 End: 07-24-2021 take 1000 mg by mouth after mealtime Garlic Discontinued 1000 MG PO after meals March 20, 2019 1:00am July 24, 2021 4:22pm predniSONE 20 mg oral tablet (5 sources) Start: 08-29-2021 End: 09-03-2021 take 2 tablets by mouth once daily Prednisone 20 mg tablet Discontinued 40 mg PO DAILY 10 August 29, 2021 12:00am September 02, 2021 12:00am September 03, 2021 12:03am Start: 08-29-2021 End: 09-03-2021 take 40 mg by mouth once daily Prednisone Discontinued 40 MG PO DAILY 10 August 29, 2021 12:00am September 03, 2021 12:03am rosuvastatin calcium 5 mg oral tablet (10 sources) HMG-CoA Reductase Inhibitor Start: 03-17-2018 End: 03-20-2019 take 1 tablet by mouth once daily Rosuvastatin 5 mg tablet Discontinued 5 mg PO DAILY 01 03March 17, 2018 5:45pm March 20, 2019 11:13am sulfamethoxazole 800 mg / trimethoprim 160 mg oral tablet (5 sources) Dihydrofolate Reductase Inhibitor Antibacterial, Sulfonamide Antimicrobial Start: 07-16-2019 End: 07-26-2019 Sulfamethoxazole- Trimethoprim 800-160 mg tablet Discontinued 1 {tbl} PO TWICE A DAY July 16, 2019 12:00July 25, 2019 12:00am July 26, 2019 12:02am insect bite infected Start: 07-16-2019 End: 07-26-2019 take 1 tablet by mouth twice daily Sulfamethoxazole-Trimethoprim Discontinu ed 1 TABLET PO TWICE A DAY 20 12July 16, 2019 12:00July 26, 2019 12:02am Problems Active Problems Problem Classification Problem Date Documented Date Episodic/Chronic Acute cerebrovascular disease (1 source) Cerebral hemorrhage; Translations: [Nontraumatic intracerebral hemorrhage, unspecified] Onset: 10-23-2015 10-24-2015 Chronic Cancer of prostate (1 source) Carcinoma in situ of prostate; Translations: [Carcinoma in situ of prostate] Onset: 12-10-2010 12-10-2010 Chronic Coronary atherosclerosis and other heart disease (3 sources) Atherosclerotic heart disease of [place] coronary artery without angina pectoris; Translations: [Coronary arteriosclerosis] Onset: 12-17-2024 12-06-2024 Chronic Disorders of lipid metabolism (7 sources) Hyperlipidemia; Translations: [Hyperlipidemia, unspecified] Onset: 05-07-2004 03-20-2019 Chronic Esophageal disorders (1 source) Gastroesophageal reflux disease; Translations: [Gastro-esophageal reflux disease without esophagitis] Onset: 03-09-2003 09-11-2023 Chronic Essential hypertension (8 sources) Hypertensive disorder; Translations: [Essential (primary) hypertension] Onset: 10-23-2015 03-20-2019 Chronic Hyperplasia of prostate (11 sources) Benign prostatic hyperplasia; Translations: [Benign prostatic hyperplasia without lower urinary tract symptoms] Onset: 12-19-2008 10-29-2019 Chronic Late effects of cerebrovascular disease (1 source) Asthenia; 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] Onset: 11-17-2015 11-17-2015 Chronic Nonspecific chest pain (1 source) Other chest pain; Translations: [Chest pressure] Onset: 11-02-2023 Episodic Other and ill-defined heart disease (1 source) Heart disease; Translations: [Heart disease, unspecified] 11-13-2023 Chronic Other connective tissue disease (5 sources) Swelling of right foot; Translations: [Other specified soft tissue disorders] 08-29-2021 Episodic Other connective tissue disease (5 sources) Swelling of lower limb; Translations: [Other specified soft tissue disorders] 07-21-2019 Episodic Other lower respiratory disease (1 source) Shortness of breath; Translations: [Shortness of breath] Onset: 11-02-2023 Episodic Other non-traumatic joint disorders (5 sources) Swelling of knee joint; Translations: [Effusion, left knee] 07-19-2019 Episodic Other screening for suspected conditions (not mental disorders or infectious disease) (6 sources) Raised prostate specific antigen; Translations: [Elevated prostate specific antigen [PSA]] Onset: 12-27-2008 11-27-2021 Episodic Skin and subcutaneous tissue infections (15 sources) Furuncle of knee; Translations: [Furuncle of limb, unspecified] 07-16-2019 Episodic Unclassified (1 source) Incoordination; Translations: [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] Onset: 11-17-2015 11-17-2015 Past or Other Problems Problem Classification Problem Date Documented Date Episodic/Chronic Acute cerebrovascular disease (3 sources) Acute cerebrovascular disease 10-01-2021 Genitourinary symptoms [...] initial encounter] Onset: 02-20-2015 02-20-2015 Episodic Unclassified (3 sources) poylp 10-01-2021 Results Test Name Value Interpretation Reference Range Facility CBC W/Diff, Automatedon 10-0 Absolute Lymph 1.85 X10 3/uL Normal 0.83-4.51 [facility] Comment on above: Performed By: #### L 500.4050, L100.0100, L500.4100 #### [facility] [address] [place], [address] Absolute Neut 4.7 X10 3/uL Normal 2.0-7.7 [facility] Comment on above: Performed By: #### L 500.4050, L100.0100, L500.4100 #### [facility] [address] [place], [address] Basophils/100 WBC (Bld) 0.9 % Normal 0-1 [facility] Comment on above: Performed By: #### L 500.4050, L100.0100, L500.4100 #### [facility] [address] [place], [address] Eosinophils/100 WBC (Bld) 1.8 % Normal 0-5 [facility] Comment on above: Performed By: #### L [id number], L100.0100, [id number] #### [facility] [address] [place], [address] Erythrocyte distribution width (RBC) [Ratio] 12.9 % Normal 11.6-14.6 [facility] Comment on above: Performed By: #### L 500.4050, L100.0100, L500.4100 #### [facility] [address] [place], [address] Hematocrit (Bld) [Volume fraction] 44.2 % Normal 40-54 [facility] Comment on above: Performed By: #### L [id number], L100.0100, [id number] #### [facility] [address] [place], [address] Hemoglobin (Bld) [Mass/Vol] 14.8 g/dL Normal 13.0-16.5 [facility] Comment on above: Performed By: #### L 500.4050, L100.0100, L500.4100 #### [facility] [address] [place], [address] IG% 0.400 Normal 0.0-0.9 [facility] Comment on above: Result Comment: IG% - Immature Granulocytes (promyelocytes, myelocytes and metamyelocytes) > 1% indicates that a LEFT SHIFT is Present. Performed By: #### L 500.4050, L100.0100, L500.4100 #### [facility] [address] [place], [address] Lymphocytes/100 WBC (Bld) 23.8 % Normal 19-41 [facility] Comment on above: Performed By: #### L 500.4050, L100.0100, L500.4100 #### [facility] [address] [place], [address] MCH (RBC) [Entitic mass] 30.1 pg Normal 27.0-32.0 [facility] Comment on above: Performed By: #### L 500.4050, L100.0100, L500.4100 #### [facility] [address] [place], [address] MCHC (RBC) [Mass/Vol] 33.5 g/dL Normal 32-36 [facility] Comment on above: Performed By: #### L [id number], L100.0100, L500.4100 #### [facility] [address] [place], [address] MCV (RBC) [Entitic vol] 89.8 fL Normal 80-94 [facility] Comment on above: Performed By: #### L 500.4050, L100.0100, L500.4100 #### [facility] [address] [place], [address] Monocytes/100 WBC (Bld) 12.9 % High 0-10 [facility] Comment on above: Performed By: #### L 500.4050, L100.0100, L500.4100 #### [facility] [address] [place], [address] Neutrophils/100 WBC (Bld) 60.2 % Normal 47-70 [facility] Comment on above: Performed By: #### L 500.4050, L100.0100, L500.4100 #### [facility] [address] [place], [address] Nucleated RBC (Bld) [#/Vol] 0 10*3/uL Normal 0-5 [facility] Comment on above: Performed By: #### L 500.4050, L100.0100, L500.4100 #### [facility] [address] [place], [address] Platelet mean volume (Bld) [Entitic vol] 11.7 fL Normal 6.2-12.0 [facility] Comment on above: Performed By: #### L 500.4050, L100.0100, L500.4100 #### [facility] [address] [place], [address] Platelets (Bld) [#/Vol] 344 10*3/uL Normal 150-450 [facility] Comment on above: Performed By: #### L 500.4050, L100.0100, L500.4100 #### [facility] [address] [place], [address] RBC (Bld) [#/Vol] 4.92 10*6/uL Normal 4.6-6.2 [facility] Comment on above: Performed By: #### L 500.4050, L100.0100, L500.4100 #### [facility] [address] [place], [address] RDW SD 42.6 fl Normal 35.1-43.9 [facility] Comment on above: Performed By: #### L 500.4050, L100.0100, [id number] #### [facility] [address] [place], [address] WBC (Bld) [#/Vol] 7.8 10*3/uL Normal 4.4-11.0 [facility] Comment on above: Performed By: #### L 500.4050, L100.0100, L500.4100 #### [facility] [address] [place], [address] Comprehensive Metabolic Prof ilon 12-04-2024 Albumin [Mass/Vol] 4.2 g/dL Normal 3.4-4.8 [facility] Comment on above: Performed By: #### L 500.4050, L100.0100, L500.4100 #### [facility] [address] [place], [address] Albumin/Globulin [Mass ratio] 1.5 {ratio} Normal 0.9-2.4 [facility] Comment on above: Performed By: #### L 500.4050, L100.0100, L500.4100 #### [facility] [address] [place], [address] ALK PHOS 77 U/L Normal 40-129 [facility] Comment on above: Performed By: #### L 500.4050, L100.0100, L500.4100 #### [facility] [address] [place], [address] ALT [Catalytic activity/Vol] 8 U/L Normal <=46 [facility] Comment on above: Performed By: #### L 500.4050, L100.0100, L500.4100 #### [facility] [address] [place], [address] AST [Catalytic activity/Vol] 21 U/L Normal <=37 [facility] Comment on above: Performed By: #### L 500.4050, L100.0100, L500.4100 #### [facility] [address] [place], [address] Bilirubin [Mass/Vol] 0.37 mg/dL Normal 0.00-1.30 [facility] Comment on above: Performed By: #### L 500.4050, L100.0100, L500.4100 #### [facility] [address] [place], [address] BUN/CRE 15.0 RATIO Normal 10-20 [facility] Comment on above: Performed By: #### L 500.4050, L100.0100, L500.4100 #### [facility] [address] [place], [address] Calcium [Mass/Vol] 9.7 mg/dL Normal 7.6-11.0 [facility] Comment on above: Performed By: #### L 500.4050, L100.0100, [id number] #### [facility] [address] [place], [address] Chloride [Moles/Vol] 105 mmol/L Normal 98-108 [facility] Comment on above: Performed By: #### L 500.4050, L100.0100, L500.4100 #### [facility] [address] [place], [address] CO2 [Moles/Vol] 22.2 mmol/L Normal 21.0-32.0 [facility] Comment on above: Performed By: #### L 500.4050, L100.0100, L500.4100 #### [facility] [address] [place], [address] Creatinine [Mass/Vol] 0.94 mg/dL Normal 0.70-1.20 [facility] Comment on above: Performed By: #### L 500.4050, L100.0100, L500.4100 #### [facility] [address] [place], [address] GAP 12 Normal 5-15 [facility] Comment on above: Performed By: #### L 500.4050, L100.0100, L500.4100 #### [facility] [address] [place], [address] GFR/1.73 sq M.predicted among non-blacks MDRD (S/P/Bld) [Vol rate/Area] 87 mL/min/{1.73_m2} Normal >60 [facility] Comment on above: Result Comment: mL/m in/1.73m2 CKD-EPI Creatinine Equation (2020) Performed By: #### L 500.4050, L100.0100, L500.4100 #### [facility] [address] [place], [address] Globulin (S) [Mass/Vol] 2.8 g/dL Normal 2.2-4.2 [facility] Comment on above: Performed By: #### L 500.4050, L100.0100, L500.4100 #### [facility] [address] [place], [address] Glucose [Mass/Vol] 105 mg/dL High 70-99 [facility] Comment on above: Performed By: #### L 500.4050, L100.0100, L500.4100 #### [facility] [address] [place], [address] Potassium [Moles/Vol] 4.4 mmol/L Normal 3.3-5.1 [facility] Comment on above: Performed By: #### L 500.4050, L100.0100, L500.4100 #### [facility] [address] [place], [address] Sodium [Moles/Vol] 138 mmol/L Normal 133-145 [facility] Comment on above: Performed By: #### L 500.4050, L100.0100, L500.4100 #### [facility] [address] [place], [address] T PROT 6.9 g/dL Normal 5.9-8.4 [facility] Comment on above: Performed By: #### L 500.4050, L100.0100, L500.4100 #### [facility] [address] [place], [address] Urea nitrogen [Mass/Vol] 14 mg/dL Normal 4-19 [facility] Comment on above: Performed By: #### L 500.4050, L100.0100, L500.4100 #### [facility] [address] [place], [address] Lipid Profileon 12-04-2024 CHOL:HDL 2.89 Normal [facility] Comment on above: Performed By: #### L 500.4050, L100.0100, L500.4100 #### [facility] [address] [place], [address] Cholesterol [Mass/Vol] 235 mg/dL High <=200 [facility] Comment on above: Result Comment: Chol esterol level, Desirable <200 mg/dL Borderline high cholesterol 200-239 mg/dL High cholesterol >=240 mg/dL Recommendations of the NCEP Adult Treatment Panel for the following risk-cutoff thresholds for the [place] population. Performed By: #### L 500.4050, L100.0100, L500.4100 #### [facility] [address] [place], [address] Cholesterol in HDL [Mass/Vol] 81 mg/dL Normal [facility] Comment on above: Result Comment: Wendy onal Cholesterol Education Program (NCEP) guidelines: <40 mg/dL: Low HDL-cholesterol (major risk factor for CHD) >= 60 mg/dL: High HDL-cholesterol (negative risk factor for CHD) HDL-cholesterol is affected by a number of factors, e.g. smoking, exercise, hormones, sex and age. Performed By: #### L 500.4050, L100.0100, L500.4100 #### [facility] [address] [place], [address] Cholesterol in LDL [Mass/Vol] 116 mg/dL Normal [facility] Comment on above: Result Comment: Bord vsmmci=533-417 mg/dL Higher Xeup=287 mg/dL or greater Friedwald Equation for LDL-C Performed By: #### L 500.4050, L100.0100, L500.4100 #### [facility] [address] [place], [address] Cholesterol in VLDL [Mass/Vol] 37 mg/dL Normal 5-40 [facility] Comment on above: Performed By: #### L 500.4050, L100.0100, L500.4100 #### [facility] [address] [place], [address] Triglyceride [Mass/Vol] 187 mg/dL Normal [facility] Comment on above: Result Comment: The drugs N-Acetylcysteine and Metamizole may falsely depress this assay. Normal range: <150 mg/dL Borderline High: 150-199 mg/dL High: 200-499 mg/dL Very High: >500 mg/dL Performed By: #### L 500.4050, L100.0100, L500.4100 #### [facility] [address] [place], [address] Absolute lymphocyte countOrd ered By: Lan Buitrago on 12-03-2024 Lymphocytes Auto (Unsp spec) [#/Vol] 1.85 10*3/uL 0.83-4.51 [facility] Absolute neutrophil countOrd ered By: Lan Buitrago on 12-03-2024 Neutrophils (Bld) [#/Vol] 4.7 10*3/uL 2.0-7.7 [facility] Anion gap in Serum or Plasma Ordered By: Lan Buitrago on 12-03-2024 Anion gap [Moles/Vol] 12 mmol/L 5- [facility] Automated lymphocyte count a s percentage of total leukocytesOrdered By: Lan Buitrago on 12-03-2024 Lymphocytes/100 WBC Auto (Unsp spec) 23.8 % - [facility] BUN/creatinine ratioOrdered By: Lan Buitrago on 12-03-2024 Urea nitrogen/Creatinine [Mass ratio] 15.0 mg/mg 10- [facility] Basophil percentageOrdered B y: Lan Buitrago on 12-03-2024 Basophils/100 WBC (Bld) 0.9 % 0-1 [facility] Bilirubin, totalOrdered By: Lan Buitrago on 12-03-2024 Bilirubin [Mass/Vol] 0.37 mg/dL 0.00-1.30 [facility] Calculated very low density lipoprotein (VLDL) cholesterol measurementOrdered By: Lan Buitrago on 12-03-2024 Calculated very low density lipoprotein (VLDL) cholesterol measurement 37 mg/dL 5-40 [facility] Carbon dioxide, total [Moles /volume] in Central venous bloodOrdered By: Lan Buitrago on 12-03-2024 CO2 [Moles/Vol] 22.2 mmol/L 21.0-32.0 [facility] Chloride assayOrdered By: Do ra Buitrago on 12-03-2024 Chloride [Moles/Vol] 105 mmol/L 98-108 [facility] Eosinophil percentageOrdered By: Lan Buitrago on 12-03-2024 Eosinophils/100 WBC (Bld) 1.8 % 0-5 [facility] Erythrocyte distribution wid th ratioOrdered By: Lan Buitrago on 12-03-2024 Erythrocyte distribution width (RBC) [Ratio] 12.9 % 11.6-14.6 [facility] Erythrocyte distribution wid th standard deviationOrdered By: Lna Buitrago on 12-03-2024 Erythrocyte distribution width (RBC) [Ratio] 42.6 fl 35.1-43.9 [facility] Glomerular filtration rate ( GFR) estimation/1.73 sq m using serum, plasma, or whole bOrdered By: Lan Buitrago on 12-03-2024 GFR/1.73 sq M.predicted among non-blacks MDRD (S/P/Bld) [Vol rate/Area] 87 mL/min/{1.73_m2} >60 [facility] Comment on above: mL/min/1.73m2 CKD-EP I Creatinine Equation (2020) Hematocrit Auto (Bld) [Volum e fraction]Ordered By: Lan Buitrago on 12-03-2024 Hematocrit (Bld) [Volume fraction] 44.2 % 40-54 [facility] Hemoglobin measurementOrdere d By: Lan Buitrago on 12-03-2024 Hemoglobin (Bld) [Mass/Vol] 14.8 g/dL 13.0-16.5 [facility] Immature granulocytes/100 WB C Auto (Bld)Ordered By: Lan Buitrago on 12-03-2024 Immature granulocytes/100 WBC (Bld) 0.400 % 0.0-0.9 [facility] Comment on above: IG% - Immature Granu locytes (promyelocytes, myelocytes and metamyelocytes) > 1% indicates that a LEFT SHIFT is Present. LDL calc ser/plasOrdered By: Lan Buitrago on 12-03-2024 Cholesterol in LDL [Mass/Vol] 116 mg/dL [facility] Comment on above: Yhezaqeofu=520-339 m g/dL & Higher Xmnt=027 mg/dL or greaterFriedwald Equation for LDL-C Laboratory - Chemistry and C hemistry - challengeOrdered By: Lan Buitrago on 12-03-2024 AST [Catalytic activity/Vol] 21 U/L <38 [facility] MCV (mean corpuscular volume ) determinationOrdered By: Lan Buitrago on 12-03-2024 MCV (RBC) [Entitic vol] 89.8 fL 80-94 [facility] Mean corpuscular hemoglobin (MCH) determinationOrdered By: Lan Buitrago on 12-03-2024 MCH (RBC) [Entitic mass] 30.1 pg 27.0-32.0 [facility] Mean corpuscular hemoglobin concentration (MCHC) determinationOrdered By: Lan Buitrago on 12-03-2024 MCHC (RBC) [Mass/Vol] 33.5 g/dL 32-36 [facility] Mean platelet volume determi nationOrdered By: Lan Buitrago on 12-03-2024 Platelet mean volume (Bld) [Entitic vol] 11.7 fL 6.2-12.0 [facility] Monocyte percentageOrdered B y: Lan Buitrago on 12-03-2024 Monocytes/100 WBC (Bld) 12.9 % High 0-10 [facility] Neutrophil percentageOrdered By: Lan Buitrago on 12-03-2024 Neutrophils/100 WBC (Bld) 60.2 % 47-70 [facility] Nucleated red blood cell per centageOrdered By: Lan Buitrago on 12-03-2024 Nucleated RBC/100 WBC (Bld) [Ratio] 0 % 0-5 [facility] Platelet countOrdered By: Do ra Buitrago on 12-03-2024 Platelets (Bld) [#/Vol] 344 10*3/uL 150-450 [facility] Potassium measurement (mass/ volume)Ordered By: Lan Buitrago on 12-03-2024 Potassium (Unsp spec) [Mass/Vol] 4.4 mmol/L 3.3-5.1 [facility] RBC Auto (Bld) [#/Vol]Ordere d By: Lan Buitrago on 12-03-2024 RBC (Bld) [#/Vol] 4.92 10*6/uL 4.6-6.2 [facility] Screening total cholesterol/ high density lipoprotein (HDL) cholesterol ratioOrdered By: Lan Buitrago on 12-03-2024 Cholesterol.total/Choles terol in HDL [Mass ratio] 2.89 {ratio} [facility] Serum creatinine measurement (mass/volume)Ordered By: Lan Buitrago on 12-03-2024 Creatinine [Mass/Vol] 0.94 mg/dL 0.70-1.20 [facility] Serum globulin measurementOr dered By: Lan Buitrago on 12-03-2024 Globulin (S) [Mass/Vol] 2.8 g/dL 2.2-4.2 [facility] Serum glucose measurement (m ass/volume)Ordered By: Lan Buitrago on 12-03-2024 Glucose [Mass/Vol] 105 mg/dL High 70-99 [facility] Serum or plasma alanine roach otransferase (ALT) measurementOrdered By: Lan Buitrago on 12-03-2024 ALT [Catalytic activity/Vol] 8 U/L <47 [facility] Serum or plasma albumin aaliyah urement (mass/volume)Ordered By: Lan Buitrago on 12-03-2024 Albumin [Mass/Vol] 4.2 g/dL 3.4-4.8 [facility] Serum or plasma albumin/glob ulin mass ratioOrdered By: Lan Buitrago on 12-03-2024 Albumin/Globulin [Mass ratio] 1.5 {ratio} 0.9-2.4 [facility] Serum or plasma alkaline saul sphatase measurementOrdered By: Lan Buitrago on 12-03-2024 ALP [Catalytic activity/Vol] 77 U/L 40-129 [facility] Serum or plasma calcium aaliyah urement (mass/volume)Ordered By: Lan Buitrago on 12-03-2024 Calcium [Mass/Vol] 9.7 mg/dL 7.6-11.0 [facility] Serum or plasma cholesterol in HDL measurement (mass/volume)Ordered By: Lan Buitrago on 12-03-2024 Cholesterol in HDL [Mass/Vol] 81 mg/dL >40 [facility] Comment on above: National Cholesterol Education Program (NCEP) guidelines:<40 mg/dL: Low HDL-cholesterol (major risk factor for CHD)>= 60 mg/dL: High HDL-cholesterol (negative risk factor for CHD)HDL-cholesterol is affected by a number of factors, e.g. smoking, exercise, hormones, sex and age. Serum or plasma cholesterol measurement (mass/volume)Ordered By: Lan Buitrago on 12-03-2024 Cholesterol [Mass/Vol] 235 mg/dL High <[address] [facility] Comment on above: Cholesterol level, D esirable <200 mg/dLBorderline high cholesterol 200-239 mg/dLHigh cholesterol >=240 mg/dLRecommendations of the NCEP Adult Treatment Panel for the following risk-cutoff thresholds for the [place] population. Serum or plasma urea nitroge n measurement (mass/volume)Ordered By: Lan Buitrago on 12-03-2024 Urea nitrogen [Mass/Vol] 14 mg/dL 4-19 [facility] Sodium levelOrdered By: Lan Buitrago on 12-03-2024 Sodium [Moles/Vol] 138 mmol/L 133-145 [facility] Total proteinOrdered By: Manjit Buitrago on 12-03-2024 Protein [Mass/Vol] 6.9 g/dL 5.9-8.4 [facility] Triglycerides measurementOrd ered By: Lan Buitrago on 12-03-2024 Triglyceride [Mass/Vol] 187 mg/dL <199 [facility] Comment on above: The drugs N-Acetylcy steine and Metamizole may falsely depress this assay. Normal range: <150 mg/dLBorderline High: 150-199 mg/dLHigh: 200-499 mg/dLVery High: >500 mg/dL White blood cell (WBC) count Ordered By: Lan Buitrago on 12-03-2024 WBC (Bld) [#/Vol] 7.8 10*3/uL 4.4-11.[address] [facility] [address] ) DOMINIK DIA ([id number]) 1955 M Date Time Provider Department 11/04/23 1:00 PM VALERIO GAMBLE CARD[facility] During your visit today, we recorded the following information about you: Pulse Blood pressure Weight Height 55/minute 150/90 79.4 kg 1.727 m Valerio Gamble MD 11/04/2023 1:34 PM [facility] [place] Nayeli Tracy Department of Cardiovascular Medicine REGIONAL CARDIOLOGY OUTPATIENT VISIT DATE November 04, 2023 OUTPATIENT VISIT TYPE NEW PRIMARY CARE PHYSICIAN: Lan Buitrago ([facility]) [address] [place] [address] REFERRING PHYSICIAN: Meg Bonilla [address] [address] CHIEF COMPLAINT: Establish care Subjective HISTORY OF PRESENT ILLNESS: Mr. 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 He has no past medical history of Asthma, Atrial fibrillation (HCC), AVM (arteriovenous malformation), Cancer ([facility]), Carotid artery stenosis, Chronic renal insufficiency, Congestive heart failure ([facility]), Coronary artery disease, Deep vein thrombosis (DVT) ([facility]), Depression, Diabetes ([facility]), Hypercoagulable state ([facility]), Intracranial aneurysm, Obesity, or Obstructive sleep apnea. who presents today to establish care. Patient had an episode of chest pressure. He went to the ER where ACS, PE was ruled out. He lives here and in [place] for half the time. While he is here he stays very active but in [place] he is more relaxed. The symptoms had [...] Gamble MD 11/04/2023 Referring Provider: MEG BONILLA [[id number]] Allergies As of Date: 11/04/2023 (No Known Allergies) Date Reviewed: 11/04/2023 Reviewed by: Reuben Naidu OCCA - Fully Assessed Reason for Visit: CARD New Patient Consult [1228] Cmt: ED F/U Chest Pressure Primary Visit Diagnosis:Encounter for screening for cardiovascular d (more content not included)... Normal [facility] 11-02-2023 [facility] HNO ID: [id number] Author: CRISTIAN THOMAS RT(R) Service: ? Author [...] PATIENT PRESENTS WITH AN IMPLANTABLE OR ATTACHED LUSTERER: No RADIOLOGY DEPARTMENT: General X-ray: Exam(s) Completed: Chest X-Ray PERIPHERAL IV DATA: Not applicable SIGNED BY: RT Nicol(R) November 02, 2023 11:[address] [facility] CBC W Auto Differential pane l (Bld)on 11-02-2023 Basophils (Bld) [#/Vol] 0.06 10*3/uL Normal <0.11 [facility] Comment on above: Order Comment: Speci men Type: BLOOD SPECIMEN Ordering Facility: [facility] Address: [address] [place] [address] Performed By: #### 5 7021-8 #### [facility] CLIA [id number] [address] [place] [address] [place] Basophils/100 WBC (Bld) 0.8 % Normal [facility] Comment on above: Order Comment: Speci men Type: BLOOD SPECIMEN Ordering Facility: [facility] Address: [address] [place] [address] Performed By: #### 5 7021-8 #### [facility] CLIA [id number] [address] Differential cell count method Nom (Bld) Auto Normal [facility] Comment on above: Order Comment: Speci men Type: BLOOD SPECIMEN Ordering Facility: [facility] Address: [address] [place] [address] Performed By: #### 5 7021-8 #### [facility] CLIA [id number] [address] [place] [address] [place] Eosinophils (Bld) [#/Vol] 0.13 10*3/uL Normal <0.46 [facility] Comment on above: Order Comment: Speci men Type: BLOOD SPECIMEN Ordering Facility: [facility] Address: [address] [place] [address] Performed By: #### 5 7021-8 #### [facility] CLIA [id number] [address] [place] Eosinophils/100 WBC (Bld) 1.8 % Normal [facility] Comment on above: Order Comment: Speci men Type: BLOOD SPECIMEN Ordering Facility: [facility] Address: [address] [place] [address] Performed By: #### 5 7021-8 #### [facility] CLIA [id number] [address] [place] Erythrocyte distribution width (RBC) [Ratio] 12.7 % Normal 11.5-15.0 [facility] Comment on above: Order Comment: Speci men Type: BLOOD SPECIMEN Ordering Facility: [facility] Address: [address] [place] [address] Performed By: #### 5 7021-8 #### [facility] CLIA [id number] [address] [place] Hematocrit (Bld) [Volume fraction] 42.2 % Normal 39.0-51.0 [facility] Comment on above: Order Comment: Speci men Type: BLOOD SPECIMEN Ordering Facility: [facility] Address: [address] [place] [address] Performed By: #### 5 7021-8 #### [facility] CLIA [id number] [address] [place] [address] [place] Hemoglobin (Bld) [Mass/Vol] 14.9 g/dL Normal 13.0-17.0 [facility] Comment on above: Order Comment: Speci men Type: BLOOD SPECIMEN Ordering Facility: [facility] Address: [address] [place] [address] Performed By: #### 5 7021-8 #### [facility] CLIA [id number] [address] [place] [address] [place] Immature granulocytes (Bld) [#/Vol] 10*3/uL Normal <0.10 [facility] Comment on above: Order Comment: Speci men Type: BLOOD SPECIMEN Ordering Facility: [facility] Address: [address] [place] [address] Performed By: #### 5 7021-8 #### [facility] CLIA [id number] [address] [place] Immature granulocytes/100 WBC (Bld) 0.1 % Normal [facility] Comment on above: Order Comment: Speci men Type: BLOOD SPECIMEN Ordering Facility: [facility] Address: [address] [place] [address] Performed By: #### 5 7021-8 #### [facility] CLIA [id number] [address] [place] [address] [place] Lymphocytes (Bld) [#/Vol] 1.84 10*3/uL Normal 1.00-4.00 [facility] Comment on above: Order Comment: Speci men Type: BLOOD SPECIMEN Ordering Facility: [facility] Address: [address] [place] [address] Performed By: #### 5 7021-8 #### [facility] CLIA [id number] [address] Lymphocytes/100 WBC (Bld) 26.0 % Normal [facility] Comment on above: Order Comment: Speci men Type: BLOOD SPECIMEN Ordering Facility: [facility] Address: [address] [place] [address] Performed By: #### 5 7021-8 #### [facility] CLIA [id number] [address] STATES [facility] MCH (RBC) [Entitic mass] 31.4 pg Normal 26.0-34.0 [facility] Comment on above: Order Comment: Speci men Type: BLOOD SPECIMEN Ordering Facility: [facility] Address: [address] [place] [address] Performed By: #### 5 7021-8 #### [facility] CLIA [id number] [address] [place] MCHC (RBC) [Mass/Vol] 35.3 g/dL Normal 30.5-36.0 [facility] Comment on above: Order Comment: Speci men Type: BLOOD SPECIMEN Ordering Facility: [facility] Address: [address] [place] [address] Performed By: #### 5 7021-8 #### [facility] CLIA [id number] [address] MCV (RBC) [Entitic vol] 88.8 fL Normal 80.0-100.0 [facility] Comment on above: Order Comment: Speci men Type: BLOOD SPECIMEN Ordering Facility: [facility] Address: [address] [place] [address] Performed By: #### 5 7021-8 #### [facility] CLIA [id number] [address] [place] Monocytes (Bld) [#/Vol] 0.92 10*3/uL High <0.87 [facility] Comment on above: Order Comment: Speci men Type: BLOOD SPECIMEN Ordering Facility: [facility] Address: [address] [place] [address] Performed By: #### 5 7021-8 #### [facility] CLIA [id number] [address] [place] [address] [place] Monocytes/100 WBC (Bld) 13.0 % Normal [facility] Comment on above: Order Comment: Speci men Type: BLOOD SPECIMEN Ordering Facility: [facility] Address: [address] [place] [address] Performed By: #### 5 7021-8 #### [facility] CLIA [id number] [address] [place] [address] [place] Neutrophils (Bld) [#/Vol] 4.13 10*3/uL Normal 1.45-7.50 [facility] Comment on above: Order Comment: Speci men Type: BLOOD SPECIMEN Ordering Facility: [facility] Address: [address] [place] [address] Performed By: #### 5 7021-8 #### [facility] CLIA [id number] [address] [place] Neutrophils/100 WBC (Bld) 58.3 % Normal [facility] Comment on above: Order Comment: Speci men Type: BLOOD SPECIMEN Ordering Facility: [facility] Address: [address] [place] [address] Performed By: #### 5 7021-8 #### [facility] CLIA [id number] [address] [place] [address] [place] Nucleated RBC (Bld) [#/Vol] 10*3/uL Normal <0.01 [facility] Comment on above: Order Comment: Speci men Type: BLOOD SPECIMEN Ordering Facility: [facility] Address: [address] [place] [address] Performed By: #### 5 7021-8 #### [facility] CLIA [id number] [address] [place] [address] [place] Nucleated RBC/100 WBC (Bld) [Ratio] 0.0 /100 WBC Normal [facility] Comment on above: Order Comment: Speci men Type: BLOOD SPECIMEN Ordering Facility: [facility] Address: [address] [place] [address] Performed By: #### 5 7021-8 #### [facility] CLIA [id number] [address] [place] Platelet mean volume (Bld) [Entitic vol] 9.2 fL Normal 9.0-12.7 [facility] Comment on above: Order Comment: Speci men Type: BLOOD SPECIMEN Ordering Facility: [facility] Address: [address] [place] [address] Performed By: #### 5 7021-8 #### [facility] CLIA [id number] [address] [place] Platelets (Bld) [#/Vol] 292 10*3/uL Normal 150-400 [facility] Comment on above: Order Comment: Speci men Type: BLOOD SPECIMEN Ordering Facility: [facility] Address: [address] [place] [address] Performed By: #### 5 7021-8 #### [facility] CLIA [id number] [address] [place] RBC (Bld) [#/Vol] 4.75 10*6/uL Normal 4.20-6.00 [facility] Comment on above: Order Comment: Speci men Type: BLOOD SPECIMEN Ordering Facility: [facility] Address: [address] [place] [address] Performed By: #### 5 7021-8 #### [facility] CLIA [id number] [address] [place] WBC (Bld) [#/Vol] 7.09 10*3/uL Normal 3.70-11.00 [facility] Comment on above: Order Comment: Speci men Type: BLOOD SPECIMEN Ordering Facility: [facility] Address: [address] [place] [address] Performed By: #### 5 7021-8 #### [facility] CLIA [id number] [address] [place] [address] [place] Comprehensive metabolic 2000 panelon 11-02-2023 Albumin [Mass/Vol] 4.1 g/dL Normal 3.9-4.9 [facility] Comment on above: Order Comment: Speci men Type: BLOOD SPECIMEN Ordering Facility: [facility] Address: [address] [place] [address] Performed By: #### 2 4323-8, [id number], #### [facility] CLIA [id number] [address] [place] [address] [place] ALP [Catalytic activity/Vol] 75 U/L Normal 38-113 [facility] Comment on above: Order Comment: Speci men Type: BLOOD SPECIMEN Ordering Facility: [facility] Address: [address] [place] [address] Performed By: #### 2 4323-8, [id number], #### [facility] CLIA [id number] [address] [place] ALT [Catalytic activity/Vol] U/L Low 10-54 [facility] Comment on above: Order Comment: Speci men Type: BLOOD SPECIMEN Ordering Facility: [facility] Address: [address] [place] [address] Performed By: #### 2 4323-8, [id number], #### [facility] CLIA [id number] [address] STATES [facility] Anion gap [Moles/Vol] 11 mmol/L Normal 8-15 [facility] Comment on above: Order Comment: Speci men Type: BLOOD SPECIMEN Ordering Facility: [facility] Address: [address] [place] [address] Performed By: #### 2 4323-8, [id number], #### [facility] CLIA [id number] [address] [place] [address] [place] AST [Catalytic activity/Vol] 16 U/L Normal 14-40 [facility] Comment on above: Order Comment: Speci men Type: BLOOD SPECIMEN Ordering Facility: [facility] Address: [address] [place] [address] Performed By: #### 2 4323-8, [id number], #### [facility] CLIA [id number] [address] [place] [address] [place] Bilirubin [Mass/Vol] 0.4 mg/dL Normal 0.2-1.3 [facility] Comment on above: Order Comment: Speci men Type: BLOOD SPECIMEN Ordering Facility: [facility] Address: [address] [place] [address] Performed By: #### 2 4323-8, [id number], #### [facility] CLIA [id number] [address] [place] [address] [place] Calcium [Mass/Vol] 9.4 mg/dL Normal 8.5-10.2 [facility] Comment on above: Order Comment: Speci men Type: BLOOD SPECIMEN Ordering Facility: [facility] Address: [address] [place] [address] Performed By: #### 2 4323-8, [id number], #### [facility] CLIA [id number] [address] [place] [address] [place] Chloride [Moles/Vol] 104 mmol/L Normal 98-107 [facility] Comment on above: Order Comment: Speci men Type: BLOOD SPECIMEN Ordering Facility: [facility] Address: [address] [place] [address] Performed By: #### 2 4323-8, [id number], #### [facility] CLIA [id number] [address] [place] [address] [place] CO2 [Moles/Vol] 23 mmol/L Normal 22-30 [facility] Comment on above: Order Comment: Speci men Type: BLOOD SPECIMEN Ordering Facility: [facility] Address: [address] [place] [address] Performed By: #### 2 4323-8, [id number], #### [facility] CLIA [id number] [address] [place] [address] [place] Creatinine [Mass/Vol] 0.86 mg/dL Normal 0.73-1.22 [facility] Comment on above: Order Comment: Speci men Type: BLOOD SPECIMEN Ordering Facility: [facility] Address: [address] [place] [address] Performed By: #### 2 4323-8, [id number], #### [facility] CLIA [id number] [address] Creatinine and Glomerular filtration rate.predicted panel (S/P/Bld) 93 mL/min/1.73m??? Normal >=60 [facility] Comment on above: Order Comment: Ender gastelum Type: BLOOD SPECIMEN Ordering Facility: [facility] Address: [address] [place] [address] Result Comment: Magalys mated Glomerular Filtration Rate [...] actual GFR. Performed By: #### 2 4323-8, [id number], #### [facility] CLIA [id number] [address] [place] [address] [place] Glucose [Mass/Vol] 121 mg/dL High 74-99 [facility] Comment on above: Order Comment: Ender gastelum Type: BLOOD SPECIMEN Ordering Facility: [facility] Address: [address] [place] [address] Result Comment: The [place] [employer] (ADA) provides guidance for cutoff [...] Standards of Medical Care in Diabetes 2016, [place] [employer]. Diabetes Care. 2016.39(Suppl 1). Performed By: #### 2 4323-8, [id number], #### [facility] CLIA [id number] [address] [place] [address] [place] Potassium [Moles/Vol] 4.5 mmol/L Normal 3.7-5.1 [facility] Comment on above: Order Comment: Speci men Type: BLOOD SPECIMEN Ordering Facility: [facility] Address: [address] [place] [address] Performed By: #### 2 4323-8, [id number], #### [facility] CLIA [id number] [address] [place] [address] [place] Protein [Mass/Vol] 6.7 g/dL Normal 6.3-8.0 [facility] Comment on above: Order Comment: Speci men Type: BLOOD SPECIMEN Ordering Facility: [facility] Address: [address] [place] [address] Performed By: #### 2 4323-8, [id number], #### [facility] CLIA [id number] [address] [place] [address] [place] Sodium [Moles/Vol] 138 mmol/L Normal 136-144 [facility] Comment on above: Order Comment: Speci men Type: BLOOD SPECIMEN Ordering Facility: [facility] Address: [address] [place] [address] Performed By: #### 2 4323-8, [id number], #### [facility] CLIA [id number] [address] [place] [address] [place] Urea nitrogen [Mass/Vol] 12 mg/dL Normal 9-24 [facility] Comment on above: Order Comment: Speci men Type: BLOOD SPECIMEN Ordering Facility: [facility] Address: [address] [place] [address] Performed By: #### 2 4323-8, [id number], #### [facility] CLIA [id number] [address] [place] [address] [place] ED NOTEon 11-02-2023 ED NOTE HNO ID: [id number] Author: KYLEIGH FOURNIER RN Service: ? Author Type: Registered Nurse Type: ED Notes Filed: 11/02/2023 14:30 Note Text: Pt dcd. Amb w from er in nad. Pwd. Sts fu made for tuwesly w cardiology [facility] ED NOTE HNO ID: [id number] Author: MARTHA TAVARES, FRAN Service: Nursing Author Type: Registered Nurse Type: ED Notes Filed: 11/02/2023 13:24 Note Text: Pt report was received [facility] ED NOTE HNO ID: [id number] Author: KYLEIGH FOURNIER RN Service: ? Author [...] take this , call light in bed [facility] ED NOTE HNO ID: [id number] Author: KYLEIGH FOURNIER RN Service: ? Author Type: Registered Nurse Type: ED Notes Filed: 11/02/2023 11:17 Note Text: Pt sts took baby asa at [address] [facility] ED NOTE HNO ID: [id number] Author: KYLEIGH FOURNIER RN Service: ? Author Type: Registered Nurse Type: ED Notes Filed: 11/02/2023 11:17 Note Text: Pcxr at ready to go [facility] ED NOTE HNO ID: [id number] Author: KYLEIGH FOURNIER RN Service: ? Author Type: Registered Nurse Type: ED Notes Filed: 11/02/2023 11:05 Note Text: Md at . [facility] ED PROV NOTEon 11-02-2023 ED PROV NOTE HNO ID: [id number] Author: MEG BONILLA DO Service: Emergency Medicine [...] Abnormal; Notable for the following components: Abs Washburn 0.92 (*) <0.87 k/uL All other components [...] (ANC) 4.13 Lymph% 26.0 Abs Lymph 1.84 Washburn% 13.0 Abs Washburn 0.92(!) Eosin% 1.8 Abs Eosin 0.13 Baso% 0.8 Abs Baso 0.06 Immature Gran % 0.1 IMMATURE GRANS (ABS) <0.03 NRBC 0.0 Absolute nRBC <0.01 DTYPE Auto No leukocytosis. No anemia 1119 EKG: HR 53. Sinus bradycardia. VA 174. QTC 399. No ST elevation consistent with CO. Nonspecific T wave jimenez (more content not included)... Normal [facility] EKGon 11-02-2023 Electrocardiogram Ventricular Rate : 5 3 BPM Atrial Rate : 53 BPM P-R Interval : 174 ms QRS Duration : 76 ms Q-T Interval : 426 ms QTC Calculation(Bazett) : 399 ms Calculated P Selmer : 69 degrees Calculated R Selmer : 41 degrees Calculated T Selmer : 47 degrees SINUS BRADYCARDIA OTHERWISE NORMAL ECG NO STEMI Confirmed by MEG BONILLA DO ([id number]), associate entertainment editor BILLY MERIDA ([id number]) on 11/02/2023 12:17:55 PM NAME : DOMINIK DIA PID : [id number] : 1955 Gender : Male Race : ORD : Procedure Date : Nov 02 2023 10:48:15 Edit Date : Nov 02 2023 12:17:57 Diagnosis: SINUS BRADYCARDIA OTHERWISE NORMAL ECG NO STEMI Confirmed by MEG BONILLA DO ([id number]), associate entertainment editor BILLY MERIDA ([id number]) on 11/02/2023 12:17:55 PM Test Reason : Location : 1 : ER 15 Overread By : MEG BONILLA DO Edited By : BILLY MERIDA Referred By : , Acquired by : Priyanka vargas [facility] HIGH SENSITIVITY TROPONIN T (INITIAL)on 11-02-2023 Troponin T.cardiac High sensitivity method [Mass/Vol] 9 ng/L Normal <12 [facility] Comment on above: Order Comment: Ender gastelum Type: BLOOD SPECIMENOrdering Facility: [facility] Address: [address] [place] [address] Performed By: #### 2 4323-8, [id number], 79621-0 ####[facility] LABORATORYCLIA [id number] [address] [place] HIGH SENSITIVITY TROPONIN T (SECOND)on 11-02-2023 Troponin T.cardiac High sensitivity method [Mass/Vol] 8 ng/L Normal <12 [facility] Comment on above: Order Comment: Ender gastelum Type: BLOOD SPECIMENOrdering Facility: [facility] Address: [address] [place] [address] Performed By: #### L [id number] ####[facility] LABORATORYCLIA [id number] [place] [address] [facility] [place] Magnesium SerPl-mCncon 11-01 Magnesium [Mass/Vol] 1.9 mg/dL Normal 1.7-2.3 [facility] Comment on above: Order Comment: Speci men Type: BLOOD SPECIMENOrdering Facility: [facility] Address: [address] [place] [id number] Performed By: #### 2 [id number], [id number], [id number] ####[facility] LABORATORYCLIA [id number] [place] [address] [place] XR CHEST 1V FRONTAL PORTon 0 11-02-2023 XR CHEST 1V FRONTAL PORT * * *Final Repo rt* * * DATE OF EXAM: Nov 02 [...] Other: Bony structures unremarkable. IMPRESSION: No acute ecdis n navigation operator: SHELBY Transcribe Date/Time: Nov 02 2023 12:06P Dictated by : DARELL PICKENS DO This examination was interpreted and the report reviewed and electronically signed by: DARELL PICKENS DO on Nov 02 2023 12:06PM EST [id number] N Normal [facility] Basophil percentageOrdered B y: Lan Buitrago on 09-04-2022 Bilirubin [Mass/Vol] 0.30 mg/dL 0.20-1.00 [facility] Comment on above: For patients on eltr ombopag therapy, use of Dimension [place] TBIL is not recommended. Chloride [Moles/Vol] 107 mmol/L 98-107 [facility] Cholesterol [Mass/Vol] 237 mg/dL <200 [facility] Comment on above: <200 mg/dL Desirable 200-240 mg/dL Borderline >240 mg/dL High Risk Glucose [Mass/Vol] 96 mg/dL 74-106 [facility] Potassium [Moles/Vol] 4.1 mmol/L 3.5-5.1 [facility] Protein [Mass/Vol] 7.4 g/dL 6.4-8.2 [facility] Sodium [Moles/Vol] 141 mmol/L 136-145 [facility] Triglyceride [Mass/Vol] 172 mg/dL <199 [facility] Comment on above: The drugs N-Acetylcy steine and Metamizole may falsely depress this assay.Serum Triglycerides Reference Interval Normal <150 mg/dL Borderline high 150 - 199 mg/dL High 200 - 499 mg/dL Very High > or = 500 mg/dL WBC (Bld) [#/Vol] 7.1 10*3/uL 4.4-11.0 [facility] Blood erythrocytes count (nu mber/volume)Ordered By: Lan Buitrago on 09-04-2022 RBC (Bld) [#/Vol] 4.88 10*6/uL 4.6-6.2 [facility] Blood hemoglobin measurement (mass/volume)Ordered By: Lan Buitrago on 09-04-2022 Hemoglobin (Bld) [Mass/Vol] 15.3 g/dL 13.0-16.5 [facility] Blood platelet mean volumeOr dered By: Lan Buitrago on 09-04-2022 Platelet mean volume (Bld) [Entitic vol] 10.0 fL 6.2-12.0 [facility] Determination of erythrocyte mean corpuscular volume (MCV)Ordered By: Lan Buitrago on 09-04-2022 MCV (RBC) [Entitic vol] 90.0 fL 80-94 [facility] Hematocrit Auto (Bld) [Volum e fraction]Ordered By: Lan Buitrago on 09-04-2022 Hematocrit (Bld) [Volume fraction] 43.9 % 40-54 [facility] Laboratory - Chemistry and C hemistry - challengeOrdered By: Lan Buitrago on 09-04-2022 ALP [Catalytic activity/Vol] 86 U/L 45-117 [facility] ALT [Catalytic activity/Vol] 14 U/L 16-61 [facility] CO2 [Moles/Vol] 25.0 mmol/L 21.0-32.0 [facility] Globulin (S) [Mass/Vol] 3.8 g/dL 2.2-4.2 [facility] Urea nitrogen/Creatinine [Mass ratio] 12.2 mg/mg 10-20 [facility] Laboratory - Hematology and Cell countsOrdered By: Lan Buitrago on 09-04-2022 Erythrocyte distribution width (RBC) [Entitic vol] 43.4 fL 35.1-43.9 [facility] Erythrocyte distribution width (RBC) [Ratio] 13.2 % 11.6-14.6 [facility] MCH (RBC) [Entitic mass] 31.4 pg 27.0-32.0 [facility] MCHC Auto (RBC) [Mass/Vol]Or dered By: Lan Buitrago on 09-04-2022 MCHC (RBC) [Mass/Vol] 34.9 g/dL 32-36 [facility] No Panel InformationOrdered By: Lan Buitrago on 09-04-2022 Estimated GFR (MDRD) Amer 81 mL/min >60 [facility] Comment on above: GFR Calc Estimated GFR (MDRD) Non-Af Amer 67 mL/min >60 [facility] Comment on above: Non- GFR Calc Prostate Specific Antigen Screen 16.60 ng/mL 0.00-4.00 [facility] Comment on above: This test was perfor med using the TPSA assay method for the[employer] chemistry system. Values obtained with differentassay methods cannot be used interchangably.When changing PSA assays in the course of monitoring apatient, additional sequential testing should be carriedout to confirm baseline values. Platelets bldOrdered By: Manjit Buitrago on 09-04-2022 Platelets (Bld) [#/Vol] 332 10*3/uL 150-450 [facility] Serum or plasma albumin aaliyah urement (mass/volume)Ordered By: Lan Buitrago on 09-04-2022 Albumin [Mass/Vol] 3.6 g/dL 3.2-5.0 [facility] Serum or plasma albumin/glob ulin mass ratioOrdered By: Lan Buitrago on 09-04-2022 Albumin/Globulin [Mass ratio] 0.9 {ratio} 0.9-2.4 [facility] Serum or plasma calcium aaliyah urement (mass/volume)Ordered By: Lan Buitrago on 09-04-2022 Calcium [Mass/Vol] 9.1 mg/dL 8.5-10.1 [facility] Serum or plasma cholesterol in HDL measurement (mass/volume)Ordered By: Lan Buitrago on 09-04-2022 Cholesterol in HDL [Mass/Vol] 88 mg/dL >40 [facility] Comment on above: The drugs N-Acetylcy steine and Metamizole may falsely depress this assay. Reference Range HDL <40 mg/dL Low HDL Cholesterol HDL >or= 60 mg/dL High HDL Cholesterol Serum or plasma cholesterol in VLDL measurement (mass/volume)Ordered By: Lan Buitrago on 09-04-2022 Cholesterol in VLDL [Mass/Vol] 34 mg/dL 5-40 [facility] Serum or plasma creatinine m easurement (mass/volume)Ordered By: Lan Buitrago on 09-04-2022 Creatinine [Mass/Vol] 1.15 mg/dL 0.70-1.30 [facility] Comment on above: The validity of the calculated GFR & GFRAA in patients over 70 years has not been determined. Clinical correlation is essential. Serum or plasma low density lipoprotein (LDL) cholesterol measurement (mass/volume)Ordered By: Lan Buitrago on 09-04-2022 Cholesterol in LDL [Mass/Vol] 115 mg/dL 0-130 [facility] Serum or plasma urea nitroge n measurement (mass/volume)Ordered By: Lan Buitrago on 09-04-2022 Urea nitrogen [Mass/Vol] 14 mg/dL 7-18 [facility] Thin prep Papanicolaou smear with manual screeningOrdered By: Lan Buitrago on 09-04-2022 Thin prep Papanicolaou smear with manual screening 17 U/L 15-37 [facility] Thin prep Papanicolaou smear with manual screening 9 5-15 [facility] Basophil percentageon 07-15- 2022 Basophil percentage < 0.9 mg/dL 0.70-1.30 [facility] Work Phone: No Panel Informationon 09-14 Bedside Estimated GFR (eGFR) > 60.0000 mL/min >60 [facility] Work Phone: No Panel Informationon 08-29 Prostate Specific Antigen Total 16.90 ng/mL 0.0-4.0 [facility] Work Phone: [phone] Comment on above: This test was perfor med using the TPSA assay method for [employer] chemistry system. Values obtained with differentassay methods cannot be used interchangably.When changing PSA assays in the course of monitoring apatient, additional sequential testing should be carriedout to confirm baseline values. Absolute lymphocyte counton 07-24-2021 Lymphocytes Auto (Unsp spec) [#/Vol] 1.90 10*3/uL 0.83-4.51 [facility] Work Phone: Basophil percentageon 2021 Basophils/100 WBC (Bld) 0.8 % 0-1 [facility] Work Phone: Bilirubin [Mass/Vol] 0.50 mg/dL 0.20-1.00 [facility] Work Phone: Comment on above: For patients on eltr ombopag therapy, use of Dimension [place] TBIL is not recommended. Chloride [Moles/Vol] 107 mmol/L 98-107 [facility] Work Phone: Cholesterol [Mass/Vol] 223 mg/dL <200 [facility] Work Phone: [phone] Comment on above: <200 mg/dL Desirable 200-240 mg/dL Borderline >240 mg/dL High Risk Eosinophils/100 WBC (Bld) 2.9 % 0-5 [facility] Work Phone: Glucose [Mass/Vol] 102 mg/dL 74-106 [facility] Work Phone: Comment on above: Fasting Glucose resu lt from 100 to 125 mg/dL suggests IMPAIRED HOMEOSTASIS per A.D.A. criteria. Neutrophils (Bld) [#/Vol] 5.2 10*3/uL 2.0-7.7 [facility] Work Phone: Neutrophils/100 WBC (Bld) 61.7 % 47-70 [facility] Work Phone: [phone] Potassium [Moles/Vol] 3.9 mmol/L 3.5-5.1 [facility] Work Phone: [phone] Protein [Mass/Vol] 7.4 g/dL 6.4-8.2 [facility] Work Phone: Sodium [Moles/Vol] 140 mmol/L 136-145 [facility] Work Phone: Triglyceride [Mass/Vol] 84 mg/dL <199 [facility] Work Phone: Comment on above: The drugs N-Acetylcy steine and Metamizole may falsely depress this assay.Serum Triglycerides Reference Interval Normal <150 mg/dL Borderline high 150 - 199 mg/dL High 200 - 499 mg/dL Very High > or = 500 mg/dL WBC (Bld) [#/Vol] 8.3 10*3/uL 4.4-11.0 [facility] Work Phone: Blood erythrocytes count (nu mber/volume)on 07-24-2021 RBC (Bld) [#/Vol] 4.66 10*6/uL 4.6-6.2 [facility] Work Phone: [phone] Blood hemoglobin measurement (mass/volume)on 07-24-2021 Hemoglobin (Bld) [Mass/Vol] 14.6 g/dL 13.0-16.5 [facility] Work Phone: Blood lymphocytes/100 leukoc yteson 07-24-2021 Lymphocytes/100 WBC (Bld) 22.8 % 19-41 [facility] Work Phone: Blood monocytes/100 leukocyt eson 07-24-2021 Monocytes/100 WBC (Bld) 11.4 % 0-10 [facility] Work Phone: Blood platelet mean volumeon 07-24-2021 Platelet mean volume (Bld) [Entitic vol] 10.1 fL 6.2-12.0 [facility] Work Phone: [phone] Determination of erythrocyte mean corpuscular volume (MCV)on 07-24-2021 MCV (RBC) [Entitic vol] 91.8 fL 80-94 [facility] Work Phone: [phone] Hematocrit Auto (Bld) [Volum e fraction]on 07-24-2021 Hematocrit (Bld) [Volume fraction] 42.8 % 40-54 [facility] Work Phone: [phone] Laboratory - Chemistry and C hemistry - challengeon 07-24-2021 ALP [Catalytic activity/Vol] 79 U/L 45-117 [facility] Work Phone: [phone] ALT [Catalytic activity/Vol] 15 U/L 16-61 [facility] Work Phone: [phone] CO2 [Moles/Vol] 27.0 mmol/L 21.0-32.0 [facility] Work Phone: [phone] Globulin (S) [Mass/Vol] 3.7 g/dL 2.2-4.2 [facility] Work Phone: [phone] Urea nitrogen/Creatinine [Mass ratio] 12.8 mg/mg 10-20 [facility] Work Phone: [phone] Laboratory - Hematology and Cell countson 07-24-2021 Erythrocyte distribution width (RBC) [Entitic vol] 42.0 fL 35.1-43.9 [facility] Work Phone: [phone] Erythrocyte distribution width (RBC) [Ratio] 12.5 % 11.6-14.6 [facility] Work Phone: [phone] Immature granulocytes/100 WBC (Bld) 0.400 % 0.0-0.9 [facility] Work Phone: [phone] Comment on above: IG% - Immature Granu locytes (promyelocytes, myelocytes and metamyelocytes) > 1% indicates that a LEFT SHIFT is Present. MCH (RBC) [Entitic mass] 31.3 pg 27.0-32.0 [facility] Work Phone: Nucleated RBC/100 WBC (Bld) [Ratio] 0 % 0-5 [facility] Work Phone: [phone] MCHC Auto (RBC) [Mass/Vol]on 07-24-2021 MCHC (RBC) [Mass/Vol] 34.1 g/dL 32-36 [facility] Work Phone: No Panel Informationon 07-24 Estimated GFR (MDRD) Amer 103 mL/min >60 [facility] Work Phone: Comment on above: GFR Calc Estimated GFR (MDRD) Non-Af Amer 85 mL/min >60 [facility] Work Phone: [phone] Comment on above: Non- GFR Calc Prostate Specific Antigen Total 16.50 ng/mL 0.0-4.0 [facility] Work Phone: [phone] Comment on above: This test was perfor med using the TPSA assay method for [employer] chemistry system. Values obtained with differentassay methods cannot be used interchangably.When changing PSA assays in the course of monitoring apatient, additional sequential testing should be carriedout to confirm baseline values. Platelets bldon 07-24-2021 Platelets (Bld) [#/Vol] 340 10*3/uL 150-450 [facility] Work Phone: [phone] Serum or plasma albumin aaliyah urement (mass/volume)on 07-24-2021 Albumin [Mass/Vol] 3.7 g/dL 3.2-5.0 [facility] Work Phone: [phone] Serum or plasma albumin/glob ulin mass ratioon 07-24-2021 Albumin/Globulin [Mass ratio] 1.0 {ratio} 0.9-2.4 [facility] Work Phone: [phone] Serum or plasma calcium aaliyah urement (mass/volume)on 07-24-2021 Calcium [Mass/Vol] 9.2 mg/dL 8.5-10.1 [facility] Work Phone: [phone] Serum or plasma cholesterol in HDL measurement (mass/volume)on 07-24-2021 Cholesterol in HDL [Mass/Vol] 85 mg/dL >40 [facility] Work Phone: Comment on above: The drugs N-Acetylcy steine and Metamizole may falsely depress this assay. Reference Range HDL <40 mg/dL Low HDL Cholesterol HDL >or= 60 mg/dL High HDL Cholesterol Serum or plasma cholesterol in VLDL measurement (mass/volume)on 07-24-2021 Cholesterol in VLDL [Mass/Vol] 17 mg/dL 5-40 [facility] Work Phone: Serum or plasma creatinine m easurement (mass/volume)on 07-24-2021 Creatinine [Mass/Vol] 0.94 mg/dL 0.70-1.30 [facility] Work Phone: Comment on above: The validity of the calculated GFR & GFRAA in patients over 70 years has not been determined. Clinical correlation is essential. Serum or plasma low density lipoprotein (LDL) cholesterol measurement (mass/volume)on 07-24-2021 Cholesterol in LDL [Mass/Vol] 121 mg/dL 0-130 [facility] Work Phone: Serum or plasma urea nitroge n measurement (mass/volume)on 07-24-2021 Urea nitrogen [Mass/Vol] 12 mg/dL 7-18 [facility] Work Phone: Thin prep Papanicolaou smear with manual screeningon 07-24-2021 Thin prep Papanicolaou smear with manual screening 21 U/L 15-37 [facility] Work Phone: Thin prep Papanicolaou smear with manual screening 6 5-15 [facility] Work Phone: Phone Msgogaro 12-08-2018 Phone Ms - From: Miryam Le To: PEDRO PABLO [...] Thank you. Will let patient know. Normal [facility] AMB ENT Physician Progress N lilia [...] Refill(s) 0, Date: 12/07/2018 16:39:00 EDT, Pharmacy: [facility],, 4 drops Left Ear BID,x10 days AMB Office/Outpt Est Pt (approx 10 min) [id number], 12/07/2018 16:38:00 EDT, Acute myringitis of left [...] No. Family History Heart attack....: Grandfather. Normal [facility] Vital Signs Date Time Vital Sign Value Performing Clinician Jeannettei litnataliia 12-03-2024 16:27-0400 Body height 167.64 cm Lan HAQUE Work Phone: [facility] 12-03-2024 16:27-0400 Body mass index (BMI) [Ratio] 30.2 kg/m2 Lan HAQUE Work Phone: [facility] 12-03-2024 16:27-0400 Body temperature 97.9 [degF] Lan Buitrago NP-C Work Phone: [facility] 12-03-2024 16:27-0400 Body weight 84.82 kg Lan Buitrago REVERSER-C Work Phone: [facility] 12-03-2024 16:27-0400 Diastolic blood pressure 60 mm[Hg] Lanpamela Buitrago REVERSER-C Work Phone: [facility] 12-03-2024 16:27-0400 Heart rate 64 /min Lanpamela Buitrago REVERSER-C Work Phone: [facility] 12-03-2024 16:27-0400 Respiratory rate 18 /min Lan Talamantesson REVERSER-C Work Phone: [facility] 12-03-2024 16:27-0400 SaO2% (BldA) [Mass fraction] 97 % Lanpamela TalamantesBuitrago REVERSER-C Work Phone: [facility] 12-03-2024 16:27-0400 Systolic blood pressure 118 mm[Hg] Lanpamela Buitrago REVERSER-C Work Phone: [facility] 11-04-2023 13:11-0400 Body height 172.7 cm Valerio Gamble MD Work Phone: [facility] 11-04-2023 13:11-0400 Body mass index (BMI) [Ratio] 26.61 kg/m2 Valerio Gamble MD Work Phone: [facility] 11-04-2023 13:11-0400 Body weight 79.38 kg Valerio Gamble MD Work Phone: [facility] 11-04-2023 13:11-0400 Diastolic blood pressure 90 mm[Hg] Valerio Gamble MD Work Phone: [facility] 11-04-2023 13:11-0400 Heart rate 55 /min Valerio Gamble MD Work Phone: [facility] 11-04-2023 13:11-0400 SaO2% (BldA) [Mass fraction] 97 % Valerio Gamble MD Work Phone: [facility] 11-04-2023 13:11-0400 Systolic blood pressure 150 mm[Hg] Valerio Gamble MD Work Phone: [facility] 09-23-2022 16:02-0400 Body height 167.64 cm [facility] 09-23-2022 16:02-0400 Body mass index (BMI) [Ratio] 29.2 kg/m2 [facility] 09-23-2022 16:02-0400 Body temperature 97.5 [degF] [facility] 09-23-2022 16:02-0400 Body weight 82.1 kg [facility] 09-23-2022 16:02-0400 Diastolic blood pressure 64 mm[Hg] [facility] 09-23-2022 16:02-0400 Heart rate 55 /min [facility] 09-23-2022 16:02-0400 Respiratory rate 18 /min [facility] 09-23-2022 16:02-0400 SaO2% (BldA) [Mass fraction] 96 % [facility] 09-23-2022 16:02-0400 Systolic blood pressure 118 mm[Hg] [facility] 08-29-2021 20:14-0400 Body height 167.64 cm [facility] Work Phone: 08-29-2021 20:14-0400 Body mass index (BMI) [Ratio] 30.2 kg/m2 [facility] Work Phone: 08-29-2021 20:14-0400 Body temperature 97.7 [degF] [facility] Work Phone: 08-29-2021 20:14-0400 Body weight 84.82 kg [facility] Work Phone: 08-29-2021 20:14-0400 Diastolic blood pressure 70 mm[Hg] [facility] Work Phone: 08-29-2021 20:14-0400 Heart rate 60 /min [facility] Work Phone: 08-29-2021 20:14-0400 Respiratory rate 18 /min [facility] Work Phone: 08-29-2021 20:14-0400 SaO2% (BldA) [Mass fraction] 96 % [facility] Work Phone: 08-29-2021 20:14-0400 Systolic blood pressure 130 mm[Hg] [facility] Work Phone: 07-24-2021 16:09-0400 Body mass index (BMI) [Ratio] 30 kg/m2 [facility] Work Phone: 07-24-2021 16:09-0400 Body temperature 97.7 [degF] [facility] Work Phone: 07-24-2021 16:09-0400 Body weight 85.72 kg [facility] Work Phone: 07-24-2021 16:09-0400 Diastolic blood pressure 70 mm[Hg] [facility] Work Phone: 07-24-2021 16:09-0400 Heart rate 85 /min [facility] Work Phone: 07-24-2021 16:09-0400 Respiratory rate 18 /min [facility] Work Phone: 07-24-2021 16:09-0400 SaO2% (BldA) [Mass fraction] 96 % [facility] Work Phone: 07-24-2021 16:09-0400 Systolic blood pressure 132 mm[Hg] [facility] Work Phone: Encounters Encounter Date Encounter Type Care Provider Facility Start: 12-03-2024 End: 12-03-2024 ambulatory Lan HAQUE Work Phone: -Laboratory Specimen Start: 12-03-2024 End: 12-03-2024 Patient encounter procedure Lan HAQUE -Laboratory Specimen Work Phone: Start: 12-03-2024 End: 12-03-2024 ambulatory Lan Buitrago REVERSER Facility:[facility] Start: 11-04-2023 End: 11-04-2023 ambulatory LAN BUITARGO Facility:[facility] Start: 11-04-2023 End: 11-04-2023 Patient encounter procedure Vlaerio Gamble MD Work Phone: Cardiology Comment on above: Encounter for screen ing for cardiovascular disorders (Primary Dx) Start: 11-02-2023 End: 11-02-2023 Emergency department patient visit LAN BUITRAGO Facility:[facility] Start: 05-18-2023 Letter encounter [facility] Work Phone: Start: 09-27-2022 End: 09-27-2022 ambulatory [facility] Work Phone: Start: 09-27-2022 End: 09-27-2022 Patient encounter procedure [facility]-Laboratory, Specimen Work Phone: Start: 09-04-2022 End: 09-04-2022 ambulatory [facility] Work Phone: Start: 09-04-2022 End: 09-04-2022 Patient encounter procedure [facility]-Laboratory, Specimen Work Phone: Start: 05-14-2022 Letter encounter [facility] Start: 02-18-2022 Letter encounter [facility] Start: 09-14-2021 End: 09-14-2021 Patient encounter procedure [facility]MRI - [facility] Start: 08-29-2021 End: 08-29-2021 Patient encounter procedure [facility]-Laboratory, Specimen Start: 07-24-2021 End: 07-24-2021 Patient encounter procedure [facility]-Laboratory, Specimen Start: 05-28-2020 End: 05-28-2020 Orders Only Lana Blackwell Work Phone: [facility] Internal Medicine Start: 05-14-2020 End: 05-14-2020 Letter encounter [facility] Procedures Date Procedure Procedure Detail Performing Clinician Start: 09-14-2021 MRI of pelvis with contrast Start: 09-14-2021 X-ray of eye for for eign body Start: 10-24-2015 Lipid 1996 panel - S more[place] or Plasma Valerio Gamble MD Work Phone: Start: 04-19-2004 Colonoscopy Valerio chow MD Work Phone: Plan of Treatment Date Care Activity Detail Author Start: 11-01-2026 Diabetes Screening Diabetes Screenin g [facility] Start: 11-04-2023 End: 02-03-2024 Apolipoprotein B [Mass/volume] in Serum or Plasma APOLIPOPROTEIN B BLD Lab Routine Encounter for screening for cardiovascular disorders Expected: 11/04/2023, Expires: 02/03/2024 [facility] Comment on above: Expected: 11/04/2023 , Expires: 02/03/2024 Start: 11-04-2023 End: 02-03-2024 C reactive protein [Mass/volume] in Serum or Plasma by High sensitivity method HIGH SENSITIVITY C-REACTIVE PROTEIN Lab Routine Encounter for screening for cardiovascular disorders Expected: 11/04/2023, Expires: 02/03/2024 [facility] Comment on above: Expected: 11/04/2023 , Expires: 02/03/2024 Start: 11-04-2023 End: 02-03-2024 Lipid 1996 panel - Serum or Plasma LIPID PANEL BASIC Lab Routine Encounter for screening for cardiovascular disorders Expected: 11/04/2023, Expires: 02/03/2024 [facility] Work Phone: Comment on above: Expected: 11/04/2023 , Expires: 02/03/2024 Start: 11-04-2023 End: 02-03-2024 Lipoprotein a [Mass/volume] in Serum or Plasma LIPOPROTEIN (A) Lab Routine Encounter for screening for cardiovascular disorders Expected: 11/04/2023, Expires: 02/03/2024 [facility] Comment on above: Expected: 11/04/2023 , Expires: 02/03/2024 Start: 11-02-2023 Covid-19 Vaccine () Covid-19 Vaccine () [facility] Start: 11-02-2023 Influenza vaccination Influenza Vacc ine (#1) [facility] Start: 03-03-2023 Advance Directive Discussion Advance Directive Discussion [facility] Start: 11-01-2022 Influenza vaccination Influenza Vacc ine (#1) [facility] Start: 12-01-2021 Influenza vaccination Influenza Vacc ine (#1) [facility] Start: 10-23-2020 Lipid panel Lipid Screening [facility] Start: 12-02-2019 Influenza vaccination Influenza Vacc ine (#1) [facility] Start: 2018 Pneumococcal polysaccharide vaccine (product) Pneumococcal Vaccine: PPSV23 (1) [facility] Start: 2018 [facility]neumococcal [facility] Start: 2018 Pneumococcal Vaccine : 65+ (1 of 1 - PCV) Pneumococcal Vaccine: 65+ (1 of 1 - PCV) [facility] Start: 2013 Hepatitis B (HBV) Vaccine (optional start 60+ years) Hepatitis B (HBV) Vaccine (optional start 60+ years) [facility] Start: 2013 RSV Vaccine (1 - 1-d ose 60+ series) RSV Vaccine (1 - 1-dose 60+ series) [facility] Start: 2013 RSV vaccine (optiona l 60+ years) RSV vaccine (optional 60+ years) [facility] Start: 04-19-2007 Screening for malign ant neoplasm of colon [facility] Start: 04-12-2005 Screening for malign ant neoplasm of colon Fecal Occult Blood [facility] Start: 08-14-2003 Measurement of occul t blood in single stool specimen [facility] Start: 08-14-2003 Screening for malign ant neoplasm of colon CRC Screening [facility] Start: 08-14-2003 Shingrix Vaccine (1 of 2) Shingrix Vaccine (1 of 2) [facility] Start: 08-14-2003 Varicella-zoster vac cine (product) Shingles (RZV) Vaccine (1 of 2) [facility] Start: 1998 [facility] for malign ant [facility]oplasm [facility] Start: 1988 Cholesterol [Mass/Vol] [facility]olesterol [facility] Start: 1988 Lipid panel Cholesterol [facility] Start: 1972 Hepatitis A (HAV) Vaccine (optional start 19+ years) Hepatitis A (HAV) Vaccine (optional start 19+ years) [facility] Start: 1972 Urine microalbumin profile DTaP,Tdap,Td Vaccine (1 - Tdap) [facility] Start: 08-14-1971 Annual PCP Team [employer] lizeth Disease Visit Annual PCP Team Chronic Disease Visit [facility] Start: 08-14-1971 Anxiety Screening Anxiety Screening [facility] Start: 08-14-1971 BP Controlled (<130/80) BP Controlle d (<130/80) [facility] Start: 08-14-1971 Depression Screening Depression Scre ening [facility] Start: 08-14-1971 Hepatitis C antibody , confirmatory test Hepatitis C Antibody [facility] Start: 08-14-1971 [facility] Start: 08-14-1971 Tetanus + diphtheria + acellular pertussis vaccine (product) Tdap Booster [facility] Start: 1954 Pneumococcal vaccination Pneum ococcal Vaccine: PCV13 (1 - PCV13 Required) [facility] Start: 02-12-1954 COVID-19 Vaccine (#1) COVID-19 Vacci ne (#1) [facility] Start: 1953 Abdominal aortic aneurysm screening Abdominal Aortic Aneurysm Screening [facility] Start: 1953 Colonoscopy Colonoscopy [facility] Start: 1953 Screening for malign ant neoplasm of colon Colon[facility] End: 12-03-2024 CT Heart and Coronary arteries for calcium scoring WO contrast CT CALCIUM SCORING SELF PAY Radiology Routine Encounter for screening for cardiovascular disorders 1 Occurrences starting 11/04/2023 until 12/03/2024 [facility] Comment on above: 1 Occurrences starti ng 11/04/2023 until 12/03/2024 [facility] Payers Date Payer Category Payer Self-pay [id number] 2023 Unknown MMO MMO MEDICARE SUPPLEMENT [id number] 2023-Present [phone] [address] [place] [address] Indemnity [id number] 2023 Unknown [id number] 2018 Medicare MEDICARE MEDICAR E A AND B [id number] 2018-Present [phone] [address] [address] [place] [address] Medicare [id number] 2018 Medicare [id number] 2015 Worker's Compensation [employer] [place] (888-[place]) [id number] 2015-Present Worker's Comp 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 Unknown [id number] Social History Date Type Detail Facility Start: 02-17-2015 End: 08-27-2021 Tobacco smoking status CAIS Unknown if ever smoked [facility] Start: 1955 Sex Assigned At Not on file M [facility] Start: 1955 Sex Assigned At Male [facility] Start: 12-10-2010 Tobacco smoking stat us CAIS Ex-smoker [facility] History of tobacco use Current smoker [facility] Start: 12-10-2010 Tobacco use and exposure Smokeless tobacco non-user [facility] Start: 11-04-2023 Alcoholic beverage intake Current drinker of alcohol (finding) [facility] Start: 02-17-2015 End: 11-04-2023 Alcoholic beverage intake [employer] Work Phone: Start: 02-17-2015 End: 11-04-2023 Tobacco use panel [facility] National Score (1-100), lower number is lower risk 73 [facility] Start: 12-03-2024 Tobacco smoking stat us NHIS Never smoked tobacco (finding) [facility] Evaluation note 12-03-2024 Note Date & Type Note Facility 12-03-2024 Evaluation note Diagnosis Onset Date Resolution CAD (coronary artery disease) acute December 03 4:13pm Hyperlipemia acute December 03, 2024 4:13pm Hypertension chronic December 03, 2024 4:13pm [facility] Work Phone: Progress note 11-04-2023 Note Date & Type Note Facility 11-04-2023 Note HNO ID: [id number] Author: VALERIO GAMBLE MD Service: ? Author Type: Physician Type: Progress Notes Filed: 11/04/2023 13:34 Note Text: [facility] [place] N[facility] Department of Cardiovascular Medicine REGIONAL CARDIOLOGY OUTPATIENT VISIT DATE November 04, 2023 OUTPATIENT VISIT TYPE NEW PRIMARY CARE PHYSICIAN: Lan Buitrago ([facility]) [address] [address] REFERRING PHYSICIAN: Meg Bonilla [address] [facility] [address] CHIEF COMPLAINT: Establish care Subjective HISTORY OF PRESENT ILLNESS: Mr. 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 He has no past medical history of Asthma, Atrial fibrillation ([facility]), AVM (arteriovenous malformation), Cancer ([facility]), Carotid artery stenosis, Chronic renal insufficiency, Congestive heart failure ([facility]), Coronary artery disease, Deep vein thrombosis (DVT) ([facility]), Depression, Diabetes ([facility]), Hypercoagulable state ([facility]), Intracranial aneurysm, Obesity, or Obstructive sleep apnea. who presents today to establish care. Patient had an episode of chest pressure. He went to the ER where ACS, PE was ruled out. He lives here and in [place] for half the time. While he is here he stays very active but in [place] he is more relaxed. The symptoms had [...] PAY CONTACT INFORMATION: Valerio Gamble MD 11/04/2023 [facility] History of Present illness Narrative 11-04-2023 Valerio Gamble MD - 11/04/2023 1:20 PM EDT Note Date & Type Note Facility 11-04-2023 History of Presen t illness Narrative [facility] Department of Cardiovascular Medicine REGIONAL CARDIOLOGY OUTPATIENT VISIT DATE November 04, 2023 OUTPATIENT VISIT TYPE NEW PRIMARY CARE PHYSICIAN: Lan Buitrago ([facility]) [address] [address] REFERRING PHYSICIAN: Meg Bonilla [address] [facility] [address] CHIEF COMPLAINT: Establish care Subjective HISTORY OF PRESENT ILLNESS: Mr. 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 He has no past medical history of Asthma, Atrial fibrillation ([facility]), AVM (arteriovenous malformation), Cancer ([facility]), Carotid artery stenosis, Chronic renal insufficiency, Congestive heart failure ([facility]), Coronary artery disease, Deep vein thrombosis (DVT) ([facility]), Depression, Diabetes ([facility]), Hypercoagulable state ([facility]), Intracranial aneurysm, Obesity, or Obstructive sleep apnea. who presents today to establish care. Patient had an episode of chest pressure. He went to the ER where ACS, PE was ruled out. He lives here and in [place] for half the time. While he is here he stays very active but in [place] he is more relaxed. The symptoms had [...] Gamble MD 11/04/2023 documented in this encounter [facility] Clinical Note 11-02-2023 Note Date & Type Note Facility 11-02-2023 Note SARS-COV-2 (AGENT OF COVID-19) RNA: Not detected INFLUENZA A RNA: Not detected INFLUENZA B RNA: Not detected RESPIRATORY SYNCYTIAL VIRUS (RSV) RNA: Not detected [facility] Comment on above: Performed By: #### 9 [id number] #### [facility] CLIA [id number] [address] [place] [address] Evaluation note Note Date & Type Note Facility Evaluation note Diagnosis Onset Date BPH with elevated PSA acute Hyperlipemia acute Hypertension chronic BPH with elevated PSA acute Cellulitis acute Swelling of right foot acute [facility] Work Phone: Evaluation note Note Date & Type Note Facility Evaluation note No assessment information availa ble [facility] Work Phone: Evaluation note Note Date & Type Note Facility Evaluation note Diagnosis Onset Date Elevated PSA acute Hypertension chronic [facility] Work Phone: Evaluation note Note Date & Type Note Facility Evaluation note Diagnosis Encounter for screening for cardiovascular disorders- Primary Screening for other and unspecified cardiovascular conditions documented in this encounter [facility] Reason for referral (narrative) Note Date & Type Note Facility Reason for referral (narrative) No reason for referral information available [facility] Work Phone: Summary Purpose Family History Relationship Condition Age [...] for Visit Elevated PSA Hypertension Reason for Visit Admit Date CAD (coronary artery disease) December 4:13pm Hyperlipemia December 03, 2024 4: 13pm Hypertension December 03, 2024 4: 13pm Reason for Referral Specialty Diagnoses / Procedures Referred By Contac t Referred To Contact CT IMAGING Diagnoses Encounter for screening for cardiovascular disorders Procedures CT CALCIUM SCORING SELF PAY UNLISTED COMPUTED TOMOGRAPHY PROCEDURE CT HEART NO CONTRAST QUANT [place] [address] [place] [address] [place] [id number] Referral ID Status Reason Start Date Expiration Date Visits Requested Visits Authorized [id number] New Request Auto-Generat ed Referral 11/04/2023 12/03/2024 1 1 Additional Source Comments (unrecognized sect ion and content) No Status Records FoundNo Status Records FoundNo Status Records FoundNo Status Records Found INFORMATION SOURCE (unrecogn ized section and content) DATE CREATED AUTHOR 12/08/2018 [facility] DATE CREATED AUTHOR AUTHOR'S ORGANIZ ATION 11/02/2023 [facility] DATE CREATED AUTHOR AUTHOR'S ORGANIZ ATION 11/05/2023 [facility] DATE CREATED AUTHOR AUTHOR'S ORGANIZ ATION 12/19/2024 [facility] Goals (unrecognized section and content) Goals may be documented in a n alternate sectionGoals may be documented in an alternate sectionGoals may be documented in an alternate sectionGoals may be documented in an alternate sectionGoals may be documented in an alternate section Care Teams (unrecognized sec tion and content) Team Status: Active Member Role Status Dates Lan Buitrago REVERSER, REVERSER-C Primary Care Provider Active Team Status: Inactive Member Role Status Dates Lan Buitrago NP, REVERSER-C Primary Care Provider, Attend ing Provider Active Team Status: Inactive Member Role Status Dates Lan Buitrago NP, REVERSER-C Primary Care Pr ovider, Attending Provider, Referring Provider Active Team Status: Inactive Member Role Status Dates Lan Buitrago NP, REVERSER-C Primary Care Provider Active Dr. 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 Specialty Start Date End Date Lan Buitrago COLLISION WORKER[employer] [address] [facility] [address] [place] [address] PCP - General Family Medicine 11/02/23 Team Status: Active Member Role/Relationship Status Dates Lan Buitrago REVERSER, REVERSER-C Primary care physician Active Team Status: Inactive Member Role/Relationship Status Dates Lan Buitrago REVERSER, REVERSER-C Primary care physician Active Start: December 03, 2024 End: December 03, 2024 Lan Buitrago NP REVERSER-C Attending physician Active Start: December 03, 2024 End: December 03, 2024 Lan Buitrago NP, REVERSER-C Referring Provider Active Start: December 03, 2024 End: December 03, 2024 Source Comments (unrecognize d section and content) In the event this informatio n is protected by the Federal Confidentiality of Alcohol and Drug Abuse Patient Records regulations: The Federal rules restrict any use of the information to criminally investigate or prosecute any alcohol or drug abuse patient.[facility] Reason for Visit (unrecogniz ed section and [...] BE BASED ON THE PRIMARY CLINICAL RECORDS. [employer] provides no warranty or guarantee of the accuracy or completeness of information in this document.
== END | disposition home or self-care (01) ==
LOC: RAD 10:31
PROVIDERS: PCP Nurse Practitioner; Referring Provider Nurse Practitioner; Visit Provider Nurse Practitioner
DX: M25.461 Effusion, right knee (principal)
CPT/HCPCS: 73564